=== PATIENT | male | born 1960 | race Caucasian/White ===

== ENCOUNTER → 2016-09-12 | Outpatient (CLI) | payer BC, MEDICAID, OTHER ==
[2016-09-12 17:15] LABS: Cholesterol 122 mg/dL (<200); HDL Cholesterol 49 mg/dL (40-60); Triglycerides 128 mg/dL (<150)
== END | disposition home or self-care (01) ==
LOC: LABWHC1 16:36
PROVIDERS: ATTEND Internal Medicine Clinical Cardiac Electrophysiology
DX: E78.5 Hyperlipidemia, unspecified (principal); I25.10 Atherosclerotic heart disease of native coronary artery without angina pectoris
CPT/HCPCS: 36415; 80061

== ENCOUNTER → 2016-12-12 | Outpatient (CLI) | payer MEDICAID ==
--- NOTE | 2016-12-13 22:07 | MR ---
EXAMINATION TYPE: MR knee LT wo con DATE OF EXAM: 12/12/2016 COMPARISON: NONE HISTORY: 56-year-old male with right knee pain TECHNIQUE: Multiplanar, multisequence imaging of the right knee is performed without IV contrast. FINDINGS: Diffuse thickening and increased signal throughout the ACL fibers. There is thickening of the PCL at 9 mm with increased signal throughout. Some intermediate signal along the proximal LCL proper and popliteus tendon. LCL complex otherwise re leatha intact. There is diffuse tear extending throughout the medial meniscus with a 1.3 x 1.0 cm posterior para men iscal cyst. There is mild diffuse cartilage thinning in the medial compartment though more severe car tilage loss along the posterior weightbearing aspect of the femoral condyle with large underlying sub chondral geodes measuring up to 1.4 cm. There is a tear extending throughout the posterior horn of the lateral meniscus. Inner margin radial tear is present along the meniscal body with additional tear at the anterior horn near the anterior r oot. Mild superficial cartilage loss along the mid weightbearing aspect of the lateral tibial plateau. Kevin e subtle underlying reactive marrow edema is present. Mild to moderate irregular cartilage loss along the mid superior patella with prominent underlying carrillo bchondral geodes measuring up to 1.0 m. Trochlear articular cartilage appears relatively maintained. There is a mild to moderate knee joint effusion and a moderate sized Whitaker's cyst measuring 5.3 x 1.8 cm. Extensor mechanism remains intact with intermediate signal along the proximal multiple mid patella te ndon fibers. Normal popliteal artery and mild muscular atrophy. No suspicious bone marrow replacement. Anterior so ft tissue swelling is nonspecific. IMPRESSION: 1. Mucoid degeneration of the ACL. 2. Either mucoid degeneration or partial tear of the PCL. 3. Low-grade sprain or chronic injury of the femoral attachment of the LCL proper and mild popliteus tendinosis. 4. Diffuse tear throughout the medial meniscus with severe cartilage loss and prominent subchondral g eodes along the posterior weightbearing aspect of the medial femoral condyle. 5. Additional tear of the posterior horn lateral meniscus, inner margin radial tear of the body, and partial tear near the anterior root as well. Mild overall lateral compartmental osteoarthrosis. 6. Moderate irregular cartilage loss with prominent subchondral geodes along the upper mid patella. 7. Tywbp-ix-sjyrwspi knee joint effusion and a moderate-sized Whitaker's cyst. 8. Proximal patellar tendinosis and nonspecific anterior soft tissue swelling.
== END | disposition home or self-care (01) ==
LOC: RADMRIMAIN 15:39
PROVIDERS: ATTEND Orthopaedic Surgery Sports Medicine
DX: S83.242A Other tear of medial meniscus, current injury, left knee, initial encounter (principal); S83.282A Other tear of lateral meniscus, current injury, left knee, initial encounter; M67.864 Other specified disorders of tendon, left knee

== ENCOUNTER → 2017-12-31 | Outpatient (CLI) | payer MEDICAID | LOC: LABWHC1 10:14 | PROVIDERS: ATTEND Urology | DX: R97.20 Elevated prostate specific antigen [PSA] (principal) | CPT/HCPCS: 36415; 84153 ==

== ENCOUNTER → 2018-02-11 | Outpatient (CLI) | payer MEDICAID ==
[2018-02-11 09:15] LABS: HCT 50.7 % (39.0-53.0); HGB 17.6 gm/dL (13.0-17.5); MCHC 34.7 g/dL (31.0-37.0); MCV 92.1 fL (80.0-100.0); Mean Platelet Volume 7.6; Platelet Count 215 k/uL (150-450); RBC 5.51 m/uL (4.30-5.90); WBC 7.3 k/uL (3.8-10.6)
[2018-02-11 09:16] LABS: Appearance,Urine Clear (Clear); Bilirubin,Urine Negative (Negative); Blood,Urine Negative (Negative); Color,Urine Yellow; Glucose,Urine (UA) Negative (Negative); Ketones,Urine Negative (Negative); Leukocyte Esterase,Urine Negative (Negative); Nitrite,Urine Negative (Negative); PH, Urine 5.5 (5.0-8.0); Protein,Urine Negative (Negative); Specific Gravity,Urine 1.019 (1.001-1.035); Urobilinogen,Urine <2.0 mg/dL (<2.0)
[2018-02-11 09:19] LABS: INR 1.1 (<1.2); Partial Thromboplastin Time 25.2 sec (22.0-30.0); Prothrombin Time 10.4 sec (9.0-12.0)
[2018-02-11 09:24] LABS: ALT 55 U/L (21-72); AST 72 U/L (17-59); Albumin 4.4 g/dL (3.5-5.0); Alkaline Phosphatase 66 U/L (38-126); Anion Gap 9 mmol/L; Blood Urea Nitrogen 20 mg/dL (9-20); Calcium 9.9 mg/dL (8.4-10.2); Carbon Dioxide 25 mmol/L (22-30); Chloride 106 mmol/L (98-107); Glucose 156 mg/dL (74-99); Potassium 4.8 mmol/L (3.5-5.1); Sodium 140 mmol/L (137-145); Total Bilirubin 1.1 mg/dL (0.2-1.3); Total Protein 7.3 g/dL (6.3-8.2)
== END | disposition home or self-care (01) ==
LOC: LABPAT 08:22
PROVIDERS: ATTEND Orthopaedic Surgery Sports Medicine
DX: Z01.818 Encounter for other preprocedural examination (principal); Z01.812 Encounter for preprocedural laboratory examination
CPT/HCPCS: 36415; 80053; 81003; 85027; 85610; 85730; 87070; 93005

== ENCOUNTER 2018-02-28 11:00 | Inpatient (IN) | payer MEDICAID ==
[2018-02-25 12:37] VITALS: BMI 31.2
[~2018-02-28 11:00] MED LIST: ACETAMINOPHEN TAB 500 MG TAB PO ONE; DEXAMETHASONE SOD PHOSPHATE 10 MG/ML 1 ML VIAL IV ONE; HYDROmorphone 1 MG/ML 1 ML SYRINGE IVP PRN; LACTATED RINGERS 1,000 ML IV SCH; LIDOCAINE 1% 20 ML VIAL (10MG/ML) FOR IV START INTRADERMA PRN; MELOXICAM 7.5 MG TAB PO ONE; MIDAZOLAM 2 MG/2 ML VIAL IV PRN; ONDANSETRON 4 MG/2 ML VIAL IVP ONE; ROPIVACAINE 246.25 MG, EPINEPHrine 0.5 MG, KETOROLAC 30 MG, cloNIDine HCL/PF 80 MCG, WA... MISCELLANE ONE; SCOPOLAMINE 1.5MG/72HR PATCH TRANSDERM ONE; TRANEXAMIC ACID 1,000 MG in SODIUM CHLORIDE 0.9% 50 ML IVPB ONE; ceFAZolin IN SWFI 2 GM/20 ML SYRINGE IVP ONE
[2018-02-28] MEDS ORDERED: BISACODYL 10 MG SUPP RECTAL PRN (11:53)
[2018-02-28] MEDS ORDERED: hydrOXYzine PAMOATE 25 MG CAP PO PRN (11:53)
[2018-02-28] MEDS ORDERED: HYDROcodone/APAP 7.5-325MG 1 EACH TAB PO PRN (11:53)
[2018-02-28] MEDS ORDERED: TEMAZEPAM 15 MG CAP PO PRN (11:53)
[2018-02-28] MEDS ORDERED: HYDROmorphone 1 MG/ML 1 ML SYRINGE IVP PRN ×4 (11:53→14:42)
[2018-02-28] MEDS ORDERED: MAGNESIUM HYDROXIDE 2,400 MG/10 ML CUP PO PRN (11:53)
[2018-02-28] MEDS ORDERED: Acetaminophen-Codeine 300-30mg TAB PO PRN (11:53)
[2018-02-28] MEDS ORDERED: NALOXONE 0.4 MG/ML 1 ML VIAL IV PRN ×2 (11:53→14:42)
[2018-02-28] MEDS ORDERED: ACETAMINOPHEN TAB 325 MG TAB PO PRN (11:53)
[2018-02-28] MEDS ORDERED: DIAZEPAM 5 MG TAB PO PRN (11:53)
[2018-02-28] MEDS ORDERED: HYDROcodone/APAP 5-325MG 1 EACH TAB PO PRN (11:53)
[2018-02-28] MEDS ORDERED: ONDANSETRON 4 MG/2 ML VIAL IVP PRN (11:53)
[2018-02-28] MEDS ORDERED: NA PHOS,M-B/NA PHOS,DI-BA 133 ML ENEMA RECTAL PRN (11:53)
[2018-02-28] MEDS: LACTATED RINGERS 1,000 ML IV SCH ×2 (12:30→23:52)
[2018-02-28] MEDS ORDERED: MIDAZOLAM 2 MG/2 ML VIAL ONE (14:19)
[2018-02-28] MEDS ORDERED: SODIUM CHLORIDE 0.9% 100 ML BAG ONE (14:19)
[2018-02-28] MEDS ORDERED: fentaNYL (PF) 50 MCG/ML 2 ML AMP ONE (14:19)
[2018-02-28] MEDS ORDERED: TRANEXAMIC ACID 1,000 MG/10 ML VIAL ONE (14:19)
[2018-02-28] MEDS ORDERED: MORPHINE SULFATE (PF) 0.3 MG/0.3 ML SYR ONE (14:19)
[2018-02-28] MEDS ORDERED: ceFAZolin 3,000 MG in SODIUM CHLORIDE 0.9% IRRIGATIO 3,000 ML IRRIGATION ONE (14:23)
[2018-02-28] MEDS ORDERED: diphenhydrAMINE 50 MG/ML 1 ML VIAL IVP PRN (14:42)
[2018-02-28] MEDS ORDERED: NALBUPHINE 10 MG/ML VIAL (10ML MDV) IV PRN (14:42)
[2018-02-28] MEDS ORDERED: LACTATED RINGERS 1,000 ML IV ONE (15:23)
--- NOTE | 2018-02-28 17:21 | XR ---
EXAMINATION TYPE: XR knee limited RT DATE OF EXAM: 02/28/2018 COMPARISON: NONE HISTORY: Postop knee pain TECHNIQUE: 2 views FINDINGS: There is a right knee prosthesis. Components are in anatomic position. IMPRESSION: No complicating process seen.
[2018-02-28] MEDS ORDERED: CARVEDILOL 12.5 MG TAB PO SCH (18:15)
[2018-02-28] MEDS: ATORVASTATIN 80 MG TAB PO SCH (19:36)
[2018-02-28] MEDS: CARVEDILOL 12.5 MG TAB PO SCH (19:37)
[2018-02-28] MEDS: ASPIRIN 325 MG TAB PO SCH (19:37)
[2018-02-28] MEDS: SENNOSIDES-DOCUSATE SODIUM 1 EACH TAB PO SCH (19:37)
[2018-02-28 19:39] LABS: Glucose,Whole Blood 179 mg/dL (75-99)
--- NOTE | 2018-02-28 23:29 | OP ---
OPERATIVE REPORT PROCEDURE: 02/28/2018. SURGEON: Gerardo Griffin M.D. LUMBER TRIPPER: Dandre JOHN. PAC. PREOPERATIVE DIAGNOSIS: Right knee osteoarthrosis. POSTOPERATIVE DIAGNOSIS: Right knee osteoarthrosis. PROCEDURE PERFORMED: Right total knee arthroplasty. ANESTHESIA: Spinal with sedation. ESTIMATED BLOOD LOSS: 100 mL. TOURNIQUET TIME: 58 minutes at 250 mmHg. COMPLICATIONS: None apparent. DRAINS: None. DISPOSITION: Postanesthesia care unit. INDICATIONS: Rodrigo is a very pleasant 57-year-old male with longstanding right knee pain. History and physical examination are consistent with advanced right knee osteoarthrosis. He has been through significant nonoperative management up to this point. Further treatment options were discussed and he decided to go forward with right total knee arthroplasty. The risks of procedure were discussed with him in detail. These risks include, but are not limited to risk of infection, nerve damage, bleeding, pain and risk of deep vein thrombosis which could lead to fatal pulmonary embolism. There is also risk of loosening of the implant which could require revision operation. The patient understands these risks. All of his questions were answered to his satisfaction. An appropriate informed consent was obtained. DESCRIPTION OF PROCEDURE: The patient identified in the preoperative holding area. Surgical sites marked by both the patient and myself. He was given 2 g of Ancef IV for prophylactic purposes. He was then transferred to the operative suite. He was placed supine on the operative table. Spinal anesthetic was then administered and dosed per the anesthesia without apparent complication. Examination under anesthesia was then performed. The patient was 2-3 degrees shy of full extension. 100 degrees of flexion. The medial collateral ligament, lateral collateral ligament posterior cruciate ligaments were stable. Tourniquet was then placed on the right upper thigh well-padded in preparation. REASON FOR SURGERY: The patient's right lower extremity is then prepped and draped in usual sterile fashion. Standard surgical pause undertaken to ensure that we were operating on the correct site and that appropriate preoperative antibiotics had been given. All staff in the room in agreement and we proceeded. The outlines of the patella were marked surgical pen. A planned 10 to 12 cm vertical incision centered over the patella was marked with a surgical pen. Leg was then exsanguinated with an Esmarch dressing. The knee was then flexed and tourniquet inflated to 250 mmHg. Total tourniquet time for the procedure was 58 minutes. Incision was then made with a 10 blade scalpel. Dissection was carried down sharply to the overlying fascia. Great care was taken to minimize the skin flaps. The knee was then exposed using a standard medial parapatellar approach. A small cuff of quadriceps tendon was then left for suturing. He was in a bit of varus preoperatively. A standard medial release was then made. Superficial medial collateral ligament was dissected off the bone around the posterior aspect of the proximal tibia. The medial meniscus was then excised as well. The lateral meniscus was also released anteriorly. The leg was then externally rotated. The patella was everted. The knee was flexed. Retractors then placed to protect the collateral ligaments. I then proceeded to remove the infrapatellar fat pad. This was excised sharply tangentially with fibers of the patellar tendon. I then proceeded to remove peripheral osteophytes. This was done with a rongeur. I then proceed with the distal femoral resection. He did have near full extension. A planned 9 mm resection was then done. The femoral canal was then entered in midline of the femur approximately 10 mm anterior to the origin of the posterior cruciate ligament. The pasquale was then advanced down the center of the femur and placed intramedullary. Based on preoperative radiographs, the angle between the anatomic and mechanical axis of the femur was approximately 4-5 degrees. The valgus angle of this femoral cutting guide was then set at 4 degrees for the right knee. The distal femoral cutting guide was then advanced over the intramedullary pasquale. This was seated firmly against the femur. I then as mentioned planned to take 9 mm off the distal femur. The cutting blocks was then secured to the femur with pins. The jig was removed. The distal femoral cut was made through the slot of the block. The pins were then removed with the distal femoral cutting block. Cutting block was removed. The accuracy of the distal femoral cuts was checked with 2 flat bars. I then proceeded with femoral sizing. The posterior referencing sizing guide was held firmly against the resected distal surface of the femur. Posterior condyles were resting on the posterior plane of the guide. The sizing stylus was then placed on the anterior femur, size was measured as a size 8. I then assessed for femoral rotation. The plan was for 3 degrees of external rotation. Three degrees of external rotation was placed onto the jig. These holes were then marked. I then confirmed the rotation by 3 separate methods. This was done using epicondylar axis as well as [place] line and posterior referencing. It was deemed that the external rotation was proper. I then went forward with placing the femoral cutting block. This was placed over the previously placed pin holes. The Allen wing was then placed on the anterior slots to ensure that we would not notch the anterior femur with the anterior femoral cut. I then proceeded with the anterior femoral cut. This was flush with the anterior cortex of the femur. Posterior cuts were then made, followed by the anterior chamfer cut, then the posterior chamfer cut. The cutting block was then removed. Throughout the resection, the collateral ligaments were protected with retractors. I then placed a trial size 8 femur. It fit very nice medial-lateral and fit flush with the distal end of the femur. The drill holes were then made. I then proceed with the tibial cut. I planned for cruciate retaining knee. The guide was placed and set for varus valgus and for slope. The height was set for approximate 2 mm resection from the medial tibial plateau which was the lower side. I was happy with the alignment and amount of resection. The cutting block was then pinned to the proximal tibia. The alignment pasquale was removed and the proximal tibia was resected with a reciprocating saw. Again this was done with retractors protecting the collateral ligaments as well as the posterior cruciate ligament. I then proceeded to evaluate the flexion extension gaps. A 10 mm block was placed. The flexion-extension gaps were equal. I then proceed with resection of posterior osteophytes. Very extensive posterior osteophytes. This was done using a curved osteotome. This resected the posterior osteophytes and posterior capsule stripping was also done off the posterior aspect of the femur. The osteophytes were removed. I then proceeded with resection of patella. The thickness of patella was measured using the caliper. The thickness was 22 mm. The thickness of the anticipated patellar dome was then taken into account. Resection was then performed and confirmed to be equal in 4 quadrants using a caliper. Approximately 14 mm of bone remained after the resection. A 35 x 8.5 mm standard patellar trial was then placed. The holes were drilled. The trial was then placed. I then proceed with sizing tibial plate. A size E tibial plate fit very nicely. I then placed the trial femur to the tibial tray and patellar button. A 10 mm trial tibial insert was also placed. The components fit very nicely. Full extension, flexion. The extension flexion gaps were equal and stable to both varus and valgus stress. Patella tracked appropriately. The tibial tray rotation was then marked with a Bovie. This was externally rotated properly. I then proceed with tibial preparation. I first drilled the femoral holes and removed the femoral component. The tibial tray was then set for proper external rotation as well as mediolateral placement onto the tibia. It was then pinned into place. I then proceeded with punching the keel. I then decided to proceed with cementing of all of our components. The knee was thoroughly irrigated with sterile saline solution via pulse lavage. The lateral geniculate artery was identified and cauterized. All blood was removed from the bone of the tibia femur and patella with pulse lavage. I then proceed with cementing. Two packs of antibiotic bone cement prepared on the back table by the neurosurgical physician assistant. I then proceed with cementing the tibia first. The cement was impacted into the keel as well as deeply seated into the bone. A second coat of cement was then placed. The tibia was then impacted into place. Excess cement was removed with Roselia's and Joker's. I then proceed with cementing of the femoral component. The femoral component was also cemented using standard technique. Excess cement was removed. A 12 mm trial insert was then placed into the knee. It was brought into full extension with a constant axial load placed until the cement had hardened. The patellar component was then cemented. This was held firmly with a compressive device until the cement had dried. When the cement had dried, the knee was taken out of extension. All excess cement was removed from around the prosthesis. I then trialed the knee with a 12 mm insert. I then trialed with a 14 mm insert. The flexion-extension gaps were appropriate. The knee was stable. It came into full extension. I decided to go forward with a 14 mm cross-linked cruciate-retaining tibial insert. Polyethylene was then placed onto the tibial tray and locked into place. The knee was then reduced. The knee was again further irrigated with sterile saline solution with antibiotic added. The tourniquet was then deflated. Total tourniquet time for the procedure was 58 minutes at 250 mmHg. Final components were Sushant Persona size 8 cruciate-retaining femoral component, size E tibial tray, a 14 mm medial congruent cruciate-retaining polyethylene insert and a 35 x 8.5 mm patella. I then proceeded with closure. Again, the knee was thoroughly irrigated. The quadriceps tendon and medial retinaculum were reapproximated with #2 Ethibond suture. The extensor mechanism was then closed with a running #2 Quill suture. Subcutaneous tissues were then closed with 2-0 Vicryl suture interrupted suture. The skin was closed with a running 3-0 Quill suture. Dermabond was applied to the incision. Sterile compressive dressings were then applied. All sponge and needle counts were deemed correct prior to closure. The patient tolerated the procedure without apparent complication. He was transferred to recovery room in stable condition. MMODL / IJN: [id number] /
[2018-02-28] MEDS: ceFAZolin IN SWFI 2 GM/20 ML SYRINGE IVP SCH (23:51)
[2018-03-01] MEDS: ceFAZolin IN SWFI 2 GM/20 ML SYRINGE IVP SCH (05:41)
--- NOTE | 2018-03-01 07:26 | P.PN ---
Progress Note - Text Progress Note Date: 03/01/18 57-year-old male status post total knee arthroplasty postop day #1 with Duramorph spinal. Patient has some complaints of nausea and vomiting overnight. He relates it to the dampness, VAS is 0 out of 10 in severity. He' s able to ambulate to and from the bathroom with no problems standing identifies a "soreness". No motor sensory deficits. Tolerating liquid diet.
[2018-03-01] MEDS: amLODIPine 5 MG TAB PO SCH (07:31)
[2018-03-01] MEDS: TAMSULOSIN 0.4 MG CAP.ER.24H PO SCH (07:31)
[2018-03-01] MEDS: ASPIRIN 325 MG TAB PO SCH ×2 (07:32→21:55)
[2018-03-01] MEDS: LISINOPRIL 20 MG TAB PO SCH (07:32)
[2018-03-01] MEDS: ALLOPURINOL 100 MG TAB PO SCH (07:32)
[2018-03-01] MEDS: MULTIVITAMINS, THERA 1 EACH TAB PO SCH (07:32)
[2018-03-01] MEDS: CARVEDILOL 12.5 MG TAB PO SCH ×2 (07:35→17:44)
[2018-03-01] MEDS: LACTATED RINGERS 1,000 ML IV SCH ×2 (07:38→22:04)
[2018-03-01] MEDS: TESTOSTERONE TOPICAL SCH (07:38)
[2018-03-01 08:49] LABS: Basophils % (A) 0 %; Eosinophils % (A) 0 %; HCT 47.2 % (39.0-53.0); HGB 15.2 gm/dL (13.0-17.5); Lymphocytes # (A) 1.1 k/uL (1.0-4.8); Lymphocytes % (A) 6 %; MCH 30.1 pg (25.0-35.0); MCHC 32.2 g/dL (31.0-37.0); MCV 93.5 fL (80.0-100.0); Mean Platelet Volume 7.7; Monocytes # (A) 1.2 k/uL (0-1.0); Monocytes % (A) 6 %; Neutrophils # (A) 17.4 k/uL (1.3-7.7); Neutrophils % (A) 87 %; Platelet Count 249 k/uL (150-450); RBC 5.05 m/uL (4.30-5.90)
--- NOTE | 2018-03-01 09:33 | P.DS ---
Providers Date of admission: 02/28/18 11:16 Expected date of discharge: 03/01/18 Attending physician: Gerardo Griffin Consults: 02/28/18 11:53 Consult Physician Routine Consulting Provider: Clint Linda Consult Reason/Comments: post op medical management Do you want consulting provider notified?: Yes 02/28/18 17:53 Consult Physician Routine Consulting Provider: Boom Jaquez Consult Reason/Comments: medical management Do you want consulting provider notified?: Yes Primary care physician: Clint Linda - Discharge Diagnosis(es) (1) Osteoarthritis of right knee Patient was admitted to the OR on 02/28/2018 to undergo a right total knee arthroplasty. He had failed conservative measures as an outpatient and desired to proceed with elective surgery after given informed consent. He underwent the above procedure which he tolerated well without complication. Postoperative hospital course has remained without complication. On day of discharge he is afebrile, vital signs stable, labs within acceptable ranges, tolerating by mouth meds and diet, voiding without difficulty, positive flatus, denies abdominal pain or calf pain, pain is controlled on oral pain medication and has no new complaints. Wound is benign, neurovascular status is intact, calf is soft and nontender, abdomen soft and nontender. Review of systems is negative for numbness, tingling, fever, chills, chest pain, shortness breath, nausea, vomiting, dizziness, headaches, slurred speech or other. Current Visit: Yes Status: Acute (2) Hx of tetralogy of Fallot repair Current Visit: No Status: Acute (3) Hyperlipemia Current Visit: No Status: Acute (4) S/P CABG x 4 Current Visit: No Status: Acute Patient Condition at Discharge: Good Plan - Discharge Summary Discharge Rx Participant: No New Discharge Prescriptions: New Aspirin 325 mg PO BID #60 tab Docusate [Colace] 100 mg PO BID #60 capsule HYDROcodone/APAP 7.5-325MG [[place] 7.5-325] 1 - 2 each PO Q6HR PRN #56 tab PRN Reason: Pain No Action Allopurinol [Zyloprim] 100 mg PO DAILY Amoxicillin 2,000 mg PO DIRECTED PRN PRN Reason: PRIOR TO DENTAL WORK Fexofenadine HCl [Frida Allergy] 60 mg PO HS PRN PRN Reason: Allergic Reaction Carvedilol [Coreg*] 12.5 mg PO BID-W/MEALS #60 tab amLODIPine BESYLATE/BENAZEPRIL [amLODIPine BESYLATE/BENAZEPRIL 5-20 mg] 1 tab PO DAILY Naproxen Sodium [Aleve] 440 mg PO HS Sildenafil Citrate [Sildenafil] 20 mg PO DIRECTED PRN PRN Reason: E.D. Tamsulosin HCl [Flomax] 0.4 mg PO DAILY Testosterone [Vogelxo 1%] 1 gram TOPICAL DAILY Aspirin EC [Ecotrin Low Dose] 162 mg PO DAILY Atorvastatin [Lipitor] 80 mg PO HS Discharge Medication List Allopurinol [Zyloprim] 100 mg PO DAILY 12/07/15 [History] Amoxicillin 2,000 mg PO DIRECTED PRN 12/08/15 [History] Fexofenadine HCl [Frida Allergy] 60 mg PO HS PRN 12/09/15 [History] Carvedilol [Coreg*] 12.5 mg PO BID-W/MEALS #60 tab 01/03/16 [Rx] Naproxen Sodium [Aleve] 440 mg PO HS 02/25/18 [History] Sildenafil Citrate [Sildenafil] 20 mg PO DIRECTED PRN 02/25/18 [History] Tamsulosin HCl [Flomax] 0.4 mg PO DAILY 02/25/18 [History] Testosterone [Vogelxo 1%] 1 gram TOPICAL DAILY 02/25/18 [History] amLODIPine BESYLATE/BENAZEPRIL [amLODIPine BESYLATE/BENAZEPRIL 5-20 mg] 1 tab PO DAILY 02/25/18 [History] Aspirin EC [Ecotrin Low Dose] 162 mg PO DAILY 02/28/18 [History] Atorvastatin [Lipitor] 80 mg PO HS 02/28/18 [History] Aspirin 325 mg PO BID #60 tab 03/01/18 [Rx] Docusate [Colace] 100 mg PO BID #60 capsule 03/01/18 [Rx] HYDROcodone/APAP 7.5-325MG [[place] 7.5-325] 1 - 2 each PO Q6HR PRN #56 tab [Rx] Follow up Appointment(s)/Referral(s): Clint Linda MD [Primary Care Provider] - 1 Week Gerardo Griffin MD [STAFF PHYSICIAN] - 10 Days Activity/Diet/Wound Care/Special Instructions: Keep wound clean and dry Take meds as directed Follow-up with Dr. Griffin in office Weight bear as tolerated May shower in 3 days if no bleeding Discharge Disposition: HOME WITH HOME HEALTH SERVICES
[2018-03-01] MEDS: traMADol 50 MG TAB PO PRN ×2 (11:42→21:55)
[2018-03-01] MEDS: ATORVASTATIN 80 MG TAB PO SCH (21:55)
[2018-03-01] MEDS: SENNOSIDES-DOCUSATE SODIUM 1 EACH TAB PO SCH (21:55)
--- NOTE | 2018-03-02 00:07 | CONS ---
CONSULTATION DATE OF CONSULTATION: 03/01/2018 REASON FOR CONSULTATION: Medical management requested by Dr. Griffin. CONSULTATION: This is a pleasant 57-year-old patient of Dr. Linda. Chronic stable medical conditions include: Coronary artery disease with bypass, hypertension, hyperlipidemia, osteoarthritis, BPH. The patient also had extensive cardiac history with pulmonary stenosis with pulmonic valve replacement, VSD and surgery and Tetralogy of Fallot repair. The patient has undergone a right total knee arthroplasty. Some pain is present. No nausea, vomiting. No chest pain. Sitting up in bed, comfortable. REVIEW OF SYSTEMS: CONSTITUTIONAL: None. HEENT: None. RESPIRATORY: None. GASTROINTESTINAL none. GENITOURINARY: None. MUSCULOSKELETAL: Arthritic pain in the joints. DERMATOLOGICAL, HEMATOLOGIC, LYMPHATIC: none. PSYCHIATRY: None. NEUROLOGICAL: None. PAST MEDICAL HISTORY: Coronary artery disease with bypass, hyperlipidemia, hypertension, osteoarthritis, pulmonary stenosis with pulmonary valve replacement, VSD closed spontaneously, Tetralogy of Fallot repair, BPH, gout. PAST SURGICAL HISTORY: Coronary artery bypass in 2016, medial sternotomy and resection of right ventricular sub infundibular stenosis. Also had heart surgery for tetralogy of Fallot at age 11. SOCIAL HISTORY: Does not smoke, use alcohol rarely . Has his own business. FAMILY HISTORY: Coronary artery disease. Mother had multiple myeloma. She also had coronary artery disease. HOME MEDICATIONS: 1. Amlodipine. 2. Benazepril 5/20 one tablet p.o. daily. 3. Testosterone 1% 1 g topical daily. 4. Flomax 0.4 mg p.o. daily. 5. Sildenafil 20 mg p.r.n. 6. Aleve 440 mg q.h.s. 7. Frida 60 mg q.h.s. p.r.n. 8. Coreg 12.5 p.o. b.i.d. 9. Lipitor 80 mg q.h.s. 10.Aspirin 162 mg p.o. daily. 11.Amoxicillin 2000 units p.o. b.i.d. p.r.n. 12.Allopurinol 100 mg p.o. daily. 13.[place] 7.5 p.r.n. 14.Colace 100 mg p.o. b.i.d. ALLERGIES: None. PHYSICAL EXAMINATION: VITAL SIGNS: Temperature 97.9, pulse 79, respiration 16, blood pressure 130/84, pulse ox 98% on room air. GENERAL APPEARANCE: Well built, BMI 31.2. Sitting up. Comfortable. EYES: Pupils are equal. Conjunctivae normal. HEENT: External appearance of nose and ears normal. Oral cavity normal. NECK: JVD not raised. Mass not palpable. RESPIRATORY: Effort normal. LUNGS: Fair entry. CARDIOVASCULAR: 1st and 2nd sounds normal. No edema. ABDOMEN: Soft, nontender. Liver and spleen not palpable. LYMPHATICS: No lymph nodes palpable in the neck and axilla. PSYCHIATRY: Alert and oriented x3. Mood and affect normal. NEUROLOGICAL: Pupils equal. Cranial nerves grossly intact. Power and sensation grossly intact. MUSCULOSKELETAL: Dressing over the right leg. INVESTIGATIONS: White count 5, hemoglobin 14.2. ASSESSMENT: 1. Right total knee arthroplasty. 2. Coronary artery disease with prior history of bypass. 3. Essential hypertension. 4. Hyperlipidemia. 5. Benign prostatic hypertrophy. 6. History of pulmonic stenosis, VSD, and tetralogy of Fallot with repair. PLAN: Patient overall doing much better. Home medications are resumed. Pain control is in place for DVT prophylaxis as an aspirin 3-[address] twice [address] day [address] Griffin. Care was discussed with the patient. Questions were answered. Thank you Dr. Griffin. Copy to Dr. Linda. MMODL / IJN: [id number] /
[2018-03-02] MEDS: HYDROcodone/APAP 5-325MG 1 EACH TAB PO PRN ×2 (04:50→12:13)
[2018-03-02] MEDS: LACTATED RINGERS 1,000 ML IV SCH (07:28)
[2018-03-02] MEDS: ALLOPURINOL 100 MG TAB PO SCH (08:55)
[2018-03-02] MEDS: ASPIRIN 325 MG TAB PO SCH (08:55)
[2018-03-02] MEDS: CARVEDILOL 12.5 MG TAB PO SCH (08:55)
[2018-03-02] MEDS: TAMSULOSIN 0.4 MG CAP.ER.24H PO SCH (08:56)
[2018-03-02] MEDS: amLODIPine 5 MG TAB PO SCH (08:56)
[2018-03-02] MEDS: LISINOPRIL 20 MG TAB PO SCH (08:56)
[2018-03-02] MEDS: MULTIVITAMINS, THERA 1 EACH TAB PO SCH (08:56)
[2018-03-02] MEDS: traMADol 50 MG TAB PO PRN (09:00)
[2018-03-02 09:06] VITALS: BP 131/76; PULSE 92; RESP 16; TEMP 98.8
[2018-03-02] MEDS: TESTOSTERONE TOPICAL SCH (10:41)
--- NOTE | 2018-03-02 19:17 | PN ---
PROGRESS NOTE DATE OF SERVICE: 03/02/2018 PRESENTING COMPLAINT: Right knee surgery. INTERVAL HISTORY: Patient is status post right knee arthroplasty, doing better. Pain is controlled. No nausea, vomiting, did tolerate a diet. Has been out of bed. REVIEW OF SYSTEMS: Done for constitutional, cardiovascular, GI, pulmonary musculoskeletal and findings as above. CURRENT MEDICATIONS: Reviewed. PHYSICAL EXAMINATION: Temperature 98, pulse 92, respirations 16, blood pressure 130/76, pulse 96% on room air. GENERAL APPEARANCE: Sitting up, comfortable. EYES: Pupils equal. Conjunctivae normal. NECK: JVD not raised. Mass not palpable. Respiratory effort increased. LUNGS: Clear. CARDIOVASCULAR: First and second sounds normal. No edema. ABDOMEN: Soft, nontender. Liver and spleen not palpable. PSYCHIATRY: Alert and oriented x3. Mood and affect normal. INVESTIGATIONS: White count 20, hemoglobin 15.2. ASSESSMENT: 1. Right total knee arthroplasty. 2. Coronary artery disease, prior history of bypass. 3. Essential hypertension. 4. Hyperlipidemia. 5. Benign prostatic hypertrophy. 6. History of pulmonic stenosis, VSD and tetralogy of Fallot with repair. PLAN: Dressing changes scheduled by Orthopedics. Now with dressing back in place. Following the same. From my standpoint, the patient otherwise is doing well. Care was discussed with the patient. MMODL / IJN: [id number] /
== END 2018-03-02 14:25 | disposition home health service (06) | DRG 470 ==
LOC: 2ORMAIN 11:16 → 4SSUR 17:31
PROVIDERS: ADMIT Orthopaedic Surgery Sports Medicine; ATTEND Orthopaedic Surgery Sports Medicine
PROC: 0SRC0J9 Replacement of Right Knee Joint with Synthetic Substitute, Cemented, Open Approach (ICD-10-PCS; principal; 2018-02-28 13:20)
DX: M17.11 Unilateral primary osteoarthritis, right knee (principal); E78.5 Hyperlipidemia, unspecified; I10 Essential (primary) hypertension; I25.10 Atherosclerotic heart disease of native coronary artery without angina pectoris; N40.0 Benign prostatic hyperplasia without lower urinary tract symptoms; Z79.82 Long term (current) use of aspirin; Z79.899 Other long term (current) drug therapy; Z80.7 Family history of other malignant neoplasms of lymphoid, hematopoietic and related tissues; Z82.49 Family history of ischemic heart disease and other diseases of the circulatory system; Z87.74 Personal history of (corrected) congenital malformations of heart and circulatory system; Z95.1 Presence of aortocoronary bypass graft; Z95.2 Presence of prosthetic heart valve; M19.90 Unspecified osteoarthritis, unspecified site
CPT/HCPCS: 85025; 88300

== ENCOUNTER 2018-06-18 17:32 | Inpatient (IN) | payer MEDICAID ==
[2018-06-18] MEDS ORDERED: SODIUM CHLORIDE 0.9% 1,000 ML IV STA ×2 (18:05→22:06)
[2018-06-18 19:01] LABS: Basophils # (A) 0.1 k/uL (0-0.2); Basophils % (A) 1 %; Eosinophils # (A) 0.4 k/uL (0-0.7); Eosinophils % (A) 5 %; HCT 50.5 % (39.0-53.0); HGB 16.4 gm/dL (13.0-17.5); Lymphocytes # (A) 0.7 k/uL (1.0-4.8); Lymphocytes % (A) 9 %; MCH 29.7 pg (25.0-35.0); MCHC 32.5 g/dL (31.0-37.0); MCV 91.6 fL (80.0-100.0); Mean Platelet Volume 7.8; Monocytes # (A) 0.6 k/uL (0-1.0); Monocytes % (A) 8 %; Neutrophils # (A) 6.1 k/uL (1.3-7.7); Neutrophils % (A) 76 %; Platelet Count 212 k/uL (150-450); RBC 5.51 m/uL (4.30-5.90); RDW 13.8 % (11.5-15.5)
[2018-06-18 19:05] LABS: ALT 303 U/L (21-72); AST 304 U/L (17-59); Albumin 4.1 g/dL (3.5-5.0); Alkaline Phosphatase 192 U/L (38-126); Anion Gap 9 mmol/L; Bilirubin, Conjugated 2.4 mg/dL (0.0-0.3); Bilirubin, Delta 1.7 mg/dL (0.0-0.2); Bilirubin,Unconjugated 3.1 mg/dL (0.0-1.1); Blood Urea Nitrogen 14 mg/dL (9-20); Calcium 9.6 mg/dL (8.4-10.2); Carbon Dioxide 25 mmol/L (22-30); Chloride 105 mmol/L (98-107); Creatine Kinase 108 U/L (55-170); Glucose 128 mg/dL (74-99); Lipase 78 U/L (23-300); Potassium 4.7 mmol/L (3.5-5.1); Sodium 139 mmol/L (137-145); Total Bilirubin 7.2 mg/dL (0.2-1.3); Total Protein 7.1 g/dL (6.3-8.2)
--- NOTE | 2018-06-18 19:21 | ED ---
General Adult HPI <Jim Jesus - Last Filed: 06/18/18 22:18> - General Source: patient, RN notes reviewed, old records reviewed Mode of arrival: ambulatory Limitations: no limitations <Santosh Sampson - Last Filed: 06/18/18 22:29> - General Chief complaint: Abdominal Pain Stated complaint: DARK URINE Time Seen by Provider: 06/18/18 17:59 - History of Present Illness Initial comments: 58-year-old male patient with past medical history of hypertension, hyperlipidemia, coronary artery disease, status post CABG 2 years ago presents to ED with jaundice. Patient reports his symptoms began Sunday night, patient reports that he had chills. Patient reports that Sunday he went to urgent care, had a reportedly negative workup including a flu swab. Patient reports that Sunday night he developed approximately 4 hours of epigastric abdominal pain. Patient denies any chest pain or shortness of breath. Patient reports that the epigastric abdominal pain resolved. Patient reports that this morning she had pruritus, resolved after Benadryl. Patient reports that he then went to urgent care for secondary evaluation where they noticed that he was mildly jaundiced. It is recommended to present to ER. Patient is currently asymptomatic. Denies any abdominal pain chest pain shortness of breath, pruritus. Systemic: Pt denies fatigue, myalgia, fever/chills, rash. Pt denies weakness, night sweats, weight loss. Neuro: Pt denies headache, visual disturbances, syncope or pre-syncope. HEENT: Pt denies ocular discharge or irritation, otalgia, rhinorrhea, pharyngitis or notable lymphadenopathy. Cardiopulmonary: Pt denies chest pain, SOB, heart palpitations, dyspnea on exertion. Abdominal/GI: Pt denies abdominal pain, n/v/d. : Pt denies dysuria, burning w/ urination, frequency/urgency. Denies new onset urinary or bowel incontinence. MSK: Pt denies myalgia, loss of strength or function in extremities. Neuro: Pt denies new onset weakness, paresthesias. (Santosh Sampson) - Related Data Home Medications Medication Instructions Recorded Confirmed Allopurinol [Zyloprim] 100 mg PO DAILY 12/07/15 06/18/18 Amoxicillin 2,000 mg PO DIRECTED PRN 12/08/15 06/18/18 Naproxen Sodium [Aleve] 440 mg PO HS 02/25/18 06/18/18 Sildenafil Citrate [Sildenafil] 20 mg PO DIRECTED PRN 02/25/18 06/18/18 Tamsulosin HCl [Flomax] 0.4 mg PO DAILY 02/25/18 06/18/18 Testosterone [Vogelxo 1%] 1 gram TOPICAL DAILY 02/25/18 06/18/18 amLODIPine BESYLATE/BENAZEPRIL 1 tab PO DAILY 02/25/18 06/18/18 [amLODIPine BESYLATE/BENAZEPRIL 5-20 MG] Aspirin EC [Ecotrin Low Dose] 162 mg PO DAILY 02/28/18 06/18/18 Atorvastatin [Lipitor] 80 mg PO HS 02/28/18 06/18/18 Previous Rx's Medication Instructions Recorded Carvedilol [Coreg*] 12.5 mg PO BID-W/MEALS #60 tab 01/03/16 Allergies Allergy/AdvReac Type Severity Reaction Status Date / Time No Known Allergies Allergy Verified 06/18/18 19:14 Review of Systems ROS Other: All systems not noted in ROS Statement are negative. <Jim Jesus - Last Filed: 06/18/18 22:18> ROS Other: All systems not noted in ROS Statement are negative. <Santosh Sampson - Last Filed: 06/18/18 22:29> ROS Statement: Those systems with pertinent positive or pertinent negative responses have been documented in the HPI. Past Medical History Past Medical History: Coronary Artery Disease (CAD), Hyperlipidemia, Hypertension, Osteoarthritis (OA), Prostate Disorder Additional Past Medical History / Comment(s): Pulmonary stenosis with pulmonic valve replacement, VSD-closed spontaneously, BPH, arthritis cervical and bilateral knees, cervical calcium deposits, numbness R arm at times r/t cervical problems, gout. History of Any Multi-Drug Resistant Organisms: None Reported Past Surgical History: Cardiac Valve Replacement, Heart Catheterization Additional Past Surgical History / Comment(s): 12/09/15 R/L cardiac cath. Other surgical hx: Median sternotomy and resection of RV sub-infundibular stenosis, cardiac caths x3, HEART SURGERY FOR TETRALOGY OF FALLOT (AGE 11), L hand fx with surgical repair, vasectomy. Past Anesthesia/Blood Transfusion Reactions: No Reported Reaction Additional Past Anesthesia/Blood Transfusion Reaction / Comment(s): Pt received blood with surgery in past without reaction. Past Psychological History: Anxiety Smoking Status: Never smoker Past Alcohol Use History: Rare Past Drug Use History: None Reported - Past Family History Mother Family Medical History: Cancer, Coronary Artery Disease (CAD), Myocardial Infarction (MS), Renal Disease Additional Family Medical History / Comment(s): Mother had multiple myeloma. She of renal failure. She had a MS and CABG in her early 60's. She had alot of CAD in her family. Father Family Medical History: Coronary Artery Disease (CAD), Myocardial Infarction (MS) Additional Family Medical History / Comment(s): Father had his first MS in his mid 60's and of a MS at the age of 82yrs. He had alot of CAD in his family. <Santosh Sampson - Last Filed: 06/18/18 22:29> General Exam Limitations: no limitations <Santosh Sampson - Last Filed: 06/18/18 22:29> - General Exam Comments Initial Comments: Constitutional: NAD, AOX3, Pt has pleasant affect. HEENT: NC/AT, trachea midline, neck supple, no lymphadenopathy. Posterior pharynx non erythematous, without exudates. External ears appear normal, without discharge. Mucous membranes moist. Eyes PERRLA, EOM intact. There mild scleral icterus. No pallor noted. Cardiopulmonary: RRR, no murmurs, rubs or gallops, no JVD noted. Lungs CTAB in anterior and posterior glover. No peripheral edema. Abdominal exam: Abdomen soft and non-distended. Abdomen non-tender to palpation in all 4 quadrants. Bowel sounds active in LLQ. No hepatosplenomegaly. No ecchymosis Neuro: CN II-XII grossly intact. No nuchal rigidity. MSK: No posterior calf tenderness bilaterally, homans sign negative bilaterally. Posterior tibialis and radial pulse +2 bilaterally. Sensation intact in upper and lower extremities. Full active ROM in upper and lower extremities, 5/5 stregnth. (Santosh Sampson) Course Vital Signs 06/18/18 17:51 Temperature 98.4 F Pulse Rate 65 Respiratory 18 Rate Blood Pressure 169/93 O2 Sat by Pulse 96 Oximetry Medical Decision Making - Lab Data Result diagrams: 06/18/18 18:44 06/18/18 18:44 <Jim Jesus - Last Filed: 06/18/18 22:18> - Lab Data Result diagrams: 06/18/18 18:44 06/18/18 18:44 <Santosh Sampson - Last Filed: 06/18/18 22:29> - Medical Decision Making The patient was seen and examined. All diagnostics were reviewed. I have discussed the case with the PA and agree with findings as documented. The case is also discussed with internal medicine and they are agreeable with admission. (Jim Jesus) 58-year-old male patient with past medical history of hypertension, hyperlipidemia, coronary artery disease, status post CABG 2 years ago presents to ED with jaundice. Patient reports his symptoms began Sunday night, patient reports that he had chills. Patient reports that Sunday he went to urgent care, had a reportedly negative workup including a flu swab. Patient reports that Sunday night he developed approximately 4 hours of epigastric abdominal pain. Patient denies any chest pain or shortness of breath. Patient reports that the epigastric abdominal pain resolved. Patient reports that this morning she had pruritus, resolved after Benadryl. Patient reports that he then went to urgent care for secondary evaluation where they noticed that he was mildly jaundiced. It is recommended to present to ER. Patient is currently asymptomatic. Denies any abdominal pain chest pain shortness of breath, pruritus. Left investigation Present CBC. Correlation studies within normal limits. CMP revealed elevated bilirubin of 7.2. AST ALT alk phos elevated. Troponin negative. EKG not concerning for acute ischemia. UA displayed +[address] abdomen and pelvis displayed no evidence of acute diverticulitis. No free fluid. Enlarged prostate. Chest x-ray revealed no acute process. Gallbladder ultrasound displayed no gallstones or dilated ducts. Distended gallbladder could relate to gallbladder dysfunction. Patient will be admitted for further evaluation of jaundice. Case discussed and pt seen by Dr. Jesus. (Santosh Sampson) - Lab Data Lab Results 06/18/18 06/18/18 06/18/18 Range/Units 18:44 18:44 18:44 WBC 8.0 (3.8-10.6) k/uL RBC 5.51 (4.30-5.90) m/uL Hgb 16.4 (13.0-17.5) gm/dL Hct 50.5 (39.0-53.0) % MCV 91.6 (80.0-100.0) fL MCH 29.7 (25.0-35.0) pg MCHC 32.5 (31.0-37.0) g/dL RDW 13.8 (11.5-15.5) % Plt Count 212 (150-450) k/uL Neutrophils % 76 % Lymphocytes % 9 % Monocytes % 8 % Eosinophils % 5 % Basophils % 1 % Neutrophils # 6.1 (1.3-7.7) k/uL Lymphocytes # 0.7 L (1.0-4.8) k/uL Monocytes # 0.6 (0-1.0) k/uL Eosinophils # 0.4 (0-0.7) k/uL Basophils # 0.1 (0-0.2) k/uL PT (9.0-12.0) sec INR (<1.2) APTT (22.0-30.0) sec Sodium 139 (137-145) mmol/L Potassium 4.7 (3.5-5.1) mmol/L Chloride 105 (98-107) mmol/L Carbon Dioxide 25 (22-30) mmol/L Anion Gap 9 mmol/L BUN 14 (9-20) mg/dL Creatinine 0.92 (0.66-1.25) mg/dL Est GFR (CKD-EPI)AfAm >90 (>60 ml/min/1.73 sqM) Est GFR (CKD-EPI)NonAf >90 (>60 ml/min/1.73 sqM) Glucose 128 H (74-99) mg/dL Plasma Lactic Acid Chalo 1.2 (0.7-2.0) mmol/L Calcium 9.6 (8.4-10.2) mg/dL Total Bilirubin 7.2 H (0.2-1.3) mg/dL Conjugated Bilirubin 2.4 H (0.0-0.3) mg/dL Unconjugated Bilirubin 3.1 H (0.0-1.1) mg/dL Delta Bilirubin 1.7 H (0.0-0.2) mg/dL AST 304 H (17-59) U/L ALT 303 H (21-72) U/L Alkaline Phosphatase 192 H (38-126) U/L Creatine Kinase 108 (55-170) U/L Troponin I (0.000-0.034) ng/mL Total Protein 7.1 (6.3-8.2) g/dL Albumin 4.1 (3.5-5.0) g/dL Lipase 78 (23-300) U/L Urine Color Urine Appearance (Clear) Urine pH (5.0-8.0) Ur Specific [place] (1.001-1.035) Urine Protein (Negative) Urine Glucose (UA) (Negative) Urine Ketones (Negative) Urine Blood (Negative) Urine Nitrite (Negative) Urine Bilirubin (Negative) Urine Urobilinogen (<2.0) mg/dL Ur Leukocyte Esterase (Negative) Urine RBC (0-5) /hpf Urine WBC (0-5) /hpf Ur Squamous Epith Cells (0-4) /hpf Calcium Oxalate Crystal (None) /hpf Amorphous Sediment (None) /hpf Hyaline Casts (0-2) /lpf Urine Mucus (None) /hpf 06/18/18 06/18/18 06/18/18 Range/Units 18:44 18:44 19:21 WBC (3.8-10.6) k/uL RBC (4.30-5.90) m/uL Hgb (13.0-17.5) gm/dL Hct (39.0-53.0) % MCV (80.0-100.0) fL MCH (25.0-35.0) pg MCHC (31.0-37.0) g/dL RDW (11.5-15.5) % Plt Count (150-450) k/uL Neutrophils % % Lymphocytes % % Monocytes % % Eosinophils % % Basophils % % Neutrophils # (1.3-7.7) k/uL Lymphocytes # (1.0-4.8) k/uL Monocytes # (0-1.0) k/uL Eosinophils # (0-0.7) k/uL Basophils # (0-0.2) k/uL PT 11.2 (9.0-12.0) sec INR 1.1 (<1.2) APTT 28.0 (22.0-30.0) sec Sodium (137-145) mmol/L Potassium (3.5-5.1) mmol/L Chloride (98-107) mmol/L Carbon Dioxide (22-30) mmol/L Anion Gap mmol/L BUN (9-20) mg/dL Creatinine (0.66-1.25) mg/dL Est GFR (CKD-EPI)AfAm (>60 ml/min/1.73 sqM) Est GFR (CKD-EPI)NonAf (>60 ml/min/1.73 sqM) Glucose (74-99) mg/dL Plasma Lactic Acid Chalo (0.7-2.0) mmol/L Calcium (8.4-10.2) mg/dL Total Bilirubin (0.2-1.3) mg/dL Conjugated Bilirubin (0.0-0.3) mg/dL Unconjugated Bilirubin (0.0-1.1) mg/dL Delta Bilirubin (0.0-0.2) mg/dL AST (17-59) U/L ALT (21-72) U/L Alkaline Phosphatase (38-126) U/L Creatine Kinase (55-170) U/L Troponin I <0.012 (0.000-0.034) ng/mL Total Protein (6.3-8.2) g/dL Albumin (3.5-5.0) g/dL Lipase (23-300) U/L Urine Color [place] Urine Appearance Clear (Clear) Urine pH 5.5 (5.0-8.0) Ur Specific [place] 1.023 (1.001-1.035) Urine Protein Trace H (Negative) Urine Glucose (UA) Negative (Negative) Urine Ketones Negative (Negative) Urine Blood Trace H (Negative) Urine Nitrite Negative (Negative) Urine Bilirubin 2+ H (Negative) Urine Urobilinogen 3.0 (<2.0) mg/dL Ur Leukocyte Esterase Negative (Negative) Urine RBC 1 (0-5) /hpf Urine WBC 4 (0-5) /hpf Ur Squamous Epith Cells <1 (0-4) /hpf Calcium Oxalate Crystal Few H (None) /hpf Amorphous Sediment Rare H (None) /hpf Hyaline Casts 3 H (0-2) /lpf Urine Mucus Rare H (None) /hpf Disposition <Jim Jesus J - Last Filed: 06/18/18 22:18> Is patient prescribed a controlled substance at d/c from ED?: No <Santosh Sampson - Last Filed: 06/18/18 22:29> Clinical Impression: Jaundice Disposition: ADMITTED IP TO THIS HOSP Condition: Serious Referrals: Clint Linda MD [Primary Care Provider] - 1-2 days
[2018-06-18 19:38] LABS: Amorphous Sediment,Urine Rare /hpf; Appearance,Urine Clear (Clear); Bilirubin,Urine 2+ (Negative); Blood,Urine Trace (Negative); Calcium Oxalate Crystals,Urine Few /hpf; Color,Urine Orange; Glucose,Urine (UA) Negative (Negative); Hyaline Casts,Urine 3 /lpf (0-2); Ketones,Urine Negative (Negative); Leukocyte Esterase,Urine Negative (Negative); Mucus,Urine Rare /hpf; Nitrite,Urine Negative (Negative); PH, Urine 5.5 (5.0-8.0); Protein,Urine Trace (Negative); RBC,Urine 1 /hpf (0-5); Specific Gravity,Urine 1.023 (1.001-1.035); Squamous Epithelial Cell,Urine <1 /hpf (0-4); WBC,Urine 4 /hpf (0-5)
--- NOTE | 2018-06-18 20:17 | XR ---
EXAMINATION TYPE: XR chest 2V DATE OF EXAM: 06/18/2018 COMPARISON: 01/02/2016 HISTORY: Abdominal pain TECHNIQUE: Frontal and lateral views of the chest are obtained. FINDINGS: Heart is normal. Lungs are clear of consolidation. Thoracic aorta is intact. There are mario rnal wires. Bony thorax is intact. IMPRESSION: No active cardiopulmonary disease. There is clearing of left pleural effusion and left l ower lobe pneumonia and atelectasis compared to old exam.
--- NOTE | 2018-06-18 20:23 | CT ---
EXAMINATION TYPE: CT abdomen pelvis w con DATE OF EXAM: 06/18/2018 COMPARISON: None HISTORY: Abdominal pain, hematuria and jaundice. CT DLP: 1633.8 mGycm Automated exposure control for dose reduction was used. TECHNIQUE: Helical acquisition of images was performed from the lung bases through the pelvis. CONTRAST: Performed without Oral Contrast and with IV Contrast, patient injected with 100ml mL of Isovue 300. FINDINGS: Lung bases are clear of consolidation. There is no pleural effusion. There is no pericardial effusion . Liver shows no focal defect. Gallbladder is within normal limits of size. Spleen appears normal. Stom ach appears normal. Spleen is intact. There is no evidence of pancreatic mass. There is no adrenal mass. Kidneys show satisfactory contrast opacification. There is no hydronephrosi s. Ureters are not dilated. There is no retroperitoneal adenopathy. Bladder distends smoothly. The pr ostate is enlarged and measures 5.5 cm. There is no inguinal hernia. There are small amount of free f luid in the pelvis. There are a few sigmoid diverticula. There is no sign of diverticulitis. There is 4 mm calculus lower pole right kidney. Appendix is not seen. There is no sign of thickened appendix. Lumbar spine is intact. There is no compression fracture. There is narrowing at L5-S1 disc space. Bon y pelvis is intact. There is broad-based umbilical hernia that contains fat. IMPRESSION: THERE ARE A FEW SIGMOID DIVERTICULA. NO EVIDENCE OF DIVERTICULITIS. MILD FREE FLUID. ENLARGED PROSTAT E. NONOBSTRUCTING RIGHT RENAL CALCULUS. NO DILATED DUCTS.
[2018-06-18 20:30] LABS: INR 1.1 (<1.2); Prothrombin Time 11.2 sec (9.0-12.0)
[2018-06-18] MEDS ORDERED: CHOLESTYRAMINE (WITH SUGAR) 4 GM PACKET PO STA (21:28)
--- NOTE | 2018-06-18 21:35 | US ---
EXAMINATION TYPE: US gallbladder DATE OF EXAM: 06/18/2018 COMPARISON: NONE CLINICAL HISTORY: Pain. Pain and jaundice. EXAM MEASUREMENTS: Liver Length: 18.5 cm Gallbladder Wall: 0.3 cm CBD: 0.6 cm Right Kidney: 13.1 x 7.0 x 6.1 cm Pancreas: Obscured by bowel gas Liver: Increased attenuation Gallbladder: No stones seen Evidence for sonographic Griffin's sign: No CBD: wnl Right Kidney: Lobulated cortex. Echogenic foci lower pole. IMPRESSION: No gallstones or dilated ducts. Distended gallbladder could relate to gallbladder dysfunc tion.
[2018-06-18] MEDS ORDERED: NALOXONE 0.4 MG/ML 1 ML VIAL IV PRN ×2 (22:29→23:12)
[2018-06-18] MEDS ORDERED: HYDROcodone/APAP 5-325MG 1 EACH TAB PO PRN (23:12)
[2018-06-18] MEDS ORDERED: MELATONIN 3 MG TABLET PO PRN (23:12)
[2018-06-18] MEDS ORDERED: ONDANSETRON 4 MG/2 ML VIAL IVP PRN (23:12)
--- NOTE | 2018-06-18 23:30 | P.HPIM ---
History of Present Illness H&P Date: 06/18/18 Chief Complaint: elevated bilirubin Patient is an 58-year-old male with a past medical history of coronary artery disease status post 4 vessel bypass, tetralogy of flow status post repair, hypertension, dyslipidemia, and BPH who presented to the ER at the direction of the nurse practitioner from Dr. Linda's office for elevated bilirubin levels. In the ER he underwent a comprehensive evaluation. His initial vital signs were within normal limits. Laboratory analysis showed an elevated bilirubin at 7.4. An elevated AST, ALP and alk phos as well. He underwent a CT abdomen and pelvis which showed some free fluid in the pelvis as well as an enlarged prostate but no abnormalities within the gallbladder. He underwent a right upper quadrant ultrasound which did not show any dilated ducts or gallbladder abnormalities. He was given IV fluids in the ER and arrangements were made for admission. Patient seen and examined at bedside in the ER. He reports that 2 days ago he noted fevers and chills at home. He then began having sharp pain underneath his rib cage which was constant in nature, He states that nothing helped the pain such a movements/eating/not eating. He then went to the urgent care [place] yesterday at Dr. Linda's office as he noted of cold and her clarissa color to his urine. Early this morning he noted itching of his chest wall, yellowing of his skin was noted by his , and he had a stool that was chu or white in color and he therefore went back to Dr. Linda's office. When he awoke today his abdominal pain was gone. They tested his urine which was positive for bilirubin and ran labs and told him to come to the ER for elevated bilirubin levels and possible need for CAT scan. He reports chills again last night with a T-max of 101.5, today his Temperature has been 98.3. He does report feeling slightly lightheaded a couple of days ago and having decreased appetite. He reports that since receiving IV fluids in the ER his urine is lightening in color. He denies any recent travel. His last trip out of the country was in late April or early May on a [place] cruise. He has not ate anything unusual. No new medications. People at work with cold symptoms but no other sick contacts. Denies any family hx of liver/gallbladder problems, no PSC, no PBC, no crohns/UC Review of Systems Pertinent positives and negatives as discussed in HPI, a complete review of systems was performed and all other systems are negative. Past Medical History Past Medical History: Coronary Artery Disease (CAD), Hyperlipidemia, Hypertensi on, Osteoarthritis (OA), Prostate Disorder Additional Past Medical History / Comment(s): Pulmonary stenosis with pulmonic valve replacement, VSD-closed spontaneously, BPH, arthritis cervical and bilateral knees, cervical calcium deposits, numbness R arm at times r/t cervical problems, gout. History of Any Multi-Drug Resistant Organisms: None Reported Past Surgical History: Cardiac Valve Replacement, Heart Catheterization Additional Past Surgical History / Comment(s): Other surgical hx: Median s ternotomy and resection of RV sub-infundibular stenosis, cardiac caths x4, HEART SURGERY FOR TETRALOGY OF FALLOT (AGE 11), L hand fx with surgical repair, vasectomy R TKA Past Anesthesia/Blood Transfusion Reactions: No Reported Reaction Additional Past Anesthesia/Blood Transfusion Reaction / Comment(s): Pt received blood with surgery in past without reaction. Past Psychological History: Anxiety Smoking Status: Never smoker Past Alcohol Use History: Occasional Past Drug Use History: None Reported Additional History: Lives with his , no assistive devices, and works in the [employer] industry - Past Family History Mother Family Medical History: Cancer, Coronary Artery Disease (CAD), Myocardial Infarction (DC), Renal Disease Additional Family Medical History / Comment(s): Mother had multiple myeloma. She of renal failure. She had a DC and CABG in her early 60's. She had alot of CAD in her family. Father Family Medical History: Coronary Artery Disease (CAD), Myocardial Infarction (DC) Additional Family Medical History / Comment(s): Father had his first DC in his m id 60's and of a DC at the age of 82yrs. He had alot of CAD in his family. Medications and Allergies Home Medications Medication Instructions Recorded Confirmed Type Allopurinol [Zyloprim] 100 mg PO DAILY 12/07/15 06/18/18 History Amoxicillin 2,000 mg PO DIRECTED PRN 12/08/15 06/18/18 History Carvedilol [Coreg*] 12.5 mg PO BID-W/MEALS #60 tab 01/03/16 06/18/18 Rx Naproxen Sodium [Aleve] 440 mg PO HS 02/25/18 06/18/18 History Sildenafil Citrate [Sildenafil] 20 mg PO DIRECTED PRN 02/25/18 06/18/18 History Tamsulosin HCl [Flomax] 0.4 mg PO DAILY 02/25/18 06/18/18 History Testosterone [Vogelxo 1%] 1 gram TOPICAL DAILY 02/25/18 06/18/18 History amLODIPine BESYLATE/BENAZEPRIL 1 tab PO DAILY 02/25/18 06/18/18 History [amLODIPine BESYLATE/BENAZEPRIL 5-20 MG] Aspirin EC [Ecotrin Low Dose] 162 mg PO DAILY 02/28/18 06/18/18 History Atorvastatin [Lipitor] 80 mg PO HS 02/28/18 06/18/18 History Allergies Allergy/AdvReac Type Severity Reaction Status Date / Time No Known Allergies Allergy Verified 06/18/18 19:14 Physical Exam Osteopathic Statement: *. No significant issues noted on an osteopathic structural exam other than those noted in the History and Physical/Consult. Vitals: Vital Signs Temp Pulse Resp BP Pulse Ox 06/18/18 17:51 98.4 F 65 18 169/93 96 Intake and Output 06/18/18 06/18/18 06/18/18 06:59 14:59 22:59 Other: Weight 115.666 kg General: ill appearing, no distress, appears at stated age, normal weight Derm: + jaundice, no unusual rashes/lesions no unusual ecchymoses, warm, dry Head: atraumatic, normocephalic, symmetric Eyes: EOMI, no lid lag, +icteric sclera, pupils equal round reactive to light ENT: Nose and ears atraumatic, no thrush, no pharyngeal erythema Neck: No thyromegaly, no cervical lymphadenopathy, trachea midline, supple Mouth: no lip lesion, mucus membranes dry Cardiovascular: S1S2 reg, no murmur, positive posterior tibial pulse bilateral, no edema, capillary refill less than 2 seconds Lungs: CTA bilateral, no rhonchi, no rales , no accessory muscle use Abdominal: soft, nontender to palpation, no guarding, no appreciable organomegaly, normal bowel sounds Ext: no gross muscle atrophy, muscle strength 5 out of 5 in all 4 extremities grossly, no contractures, Neuro: CN II-XI grossly intact, light touch intact all 4 extremities, finger to nose within normal limits, Psych: Alert, oriented, appropriate affect Results CBC & Chem 7: 06/18/18 18:44 06/18/18 18:44 Labs: Abnormal Lab Results - Last 24 Hours (Table) 06/18/18 06/18/18 06/18/18 Range/Units 18:44 18:44 19:21 Lymphocytes # 0.7 L (1.0-4.8) k/uL Glucose 128 H (74-99) mg/dL Total Bilirubin 7.2 H (0.2-1.3) mg/dL Conjugated Bilirubin 2.4 H (0.0-0.3) mg/dL Unconjugated Bilirubin 3.1 H (0.0-1.1) mg/dL Delta Bilirubin 1.7 H (0.0-0.2) mg/dL AST 304 H (17-59) U/L ALT 303 H (21-72) U/L Alkaline Phosphatase 192 H (38-126) U/L Urine Protein Trace H (Negative) Urine Blood Trace H (Negative) Urine Bilirubin 2+ H (Negative) Calcium Oxalate Crystal Few H (None) /hpf Amorphous Sediment Rare H (None) /hpf Hyaline Casts 3 H (0-2) /lpf Urine Mucus Rare H (None) /hpf Comments: Liver US reviewed CT scan - abdomen: report reviewed CT scan - pelvis: report reviewed Thrombosis Risk Factor Assmnt - DVT/VTE Prophylaxis DVT/VTE Prophylaxis: Low risk, early ambulation encouraged - Choose All That Apply Each Factor Represents 1 point: Age 41-60 years, Obesity (BMI >25) Thrombosis Risk Factor Assessment Total Risk Factor Score: 2 Thrombosis Risk Factor Assessment Level: Low Risk Assessment and Plan Assessment: Transaminitis with hyperbilirubinemia - currently painless jaundice associated with fevers - Consult GI, May need ERCP - Repeat labs in AM - CT and US are negative - check hepatitis panel, CMV, EBV, MARGIE, antismooth muscle, antimitochondrial antibody - hold statin, aleeve, testosterone ASCAD - hold ASA tomorrow incase procedure needed by GI HTN, controlled - continue amlodipine, benzapril, coreg HLD - hold statin due to elevated liver enzymes BPH - flomax - continued outpatient follow-up with Dr. Madison Obesity, BMI 31.9 - structured outpatient weight loss Strucutural heart disease - follow with Dr. Willard - Chay The patient is admitted with an anticipated greater than 2 midnight stay for evaluation of painless jaundice. Surrogate decision-maker: Magaly CODE STATUS:Full DVT prophylaxis: SCDs Discussed with: Patient, Dr. Jesus, Anticipated discharge date: 2-[address]: Home A total of 65 minutes was spent on the care of this complex patient more than 50% of the time was spent in counseling and care coordination.
[2018-06-18] MEDS: CARVEDILOL 12.5 MG TAB PO SCH (23:49)
[2018-06-19] MEDS: diphenhydrAMINE 50 MG/ML 1 ML VIAL IVP PRN ×3 (01:54→20:41)
[2018-06-19] MEDS: SODIUM CHLORIDE 0.9% 1,000 ML IV SCH ×3 (01:54→20:04)
[2018-06-19 08:29] LABS: HGB 15.1 gm/dL (13.0-17.5); MCH 29.8 pg (25.0-35.0); MCHC 32.9 g/dL (31.0-37.0); MCV 90.6 fL (80.0-100.0); Mean Platelet Volume 8.2; Platelet Count 206 k/uL (150-450); RBC 5.08 m/uL (4.30-5.90); RDW 13.8 % (11.5-15.5); WBC 6.9 k/uL (3.8-10.6)
[2018-06-19 08:43] LABS: INR 1.1 (<1.2); Prothrombin Time 11.3 sec (9.0-12.0)
[2018-06-19 08:48] LABS: ALT 252 U/L (21-72); AST 233 U/L (17-59); Albumin 3.7 g/dL (3.5-5.0); Alkaline Phosphatase 165 U/L (38-126); Anion Gap 10 mmol/L; Blood Urea Nitrogen 12 mg/dL (9-20); Carbon Dioxide 22 mmol/L (22-30); Chloride 105 mmol/L (98-107); Glucose 126 mg/dL (74-99); Potassium 4.2 mmol/L (3.5-5.1); Sodium 137 mmol/L (137-145); Total Bilirubin 4.7 mg/dL (0.2-1.3); Total Protein 6.4 g/dL (6.3-8.2)
[2018-06-19] MEDS: TAMSULOSIN 0.4 MG CAP.ER.24H PO SCH (09:29)
[2018-06-19] MEDS: ALLOPURINOL 100 MG TAB PO SCH (09:29)
[2018-06-19] MEDS: LISINOPRIL 20 MG TAB PO SCH (09:29)
[2018-06-19] MEDS: amLODIPine 5 MG TAB PO SCH (09:30)
[2018-06-19] MEDS: CARVEDILOL 12.5 MG TAB PO SCH ×2 (09:31→17:46)
[2018-06-19 13:41] LABS: EBV-VCA (IgG) >8.0 AI
[2018-06-19 13:41] LABS: Hepatitis A Antibody IgM Non-Reactive (Non-Reactive); Hepatitis B Core IgM Non-Reactive (Non-Reactive)
[2018-06-19] MEDS: metroNIDAZOLE-NS PMX 500 MG in SALINE 1 100ML.BAG IVPB SCH ×3 (14:48→23:39)
--- NOTE | 2018-06-19 14:50 | P.PN ---
Subjective Progress Note Date: 06/19/18 Principal diagnosis: Obstructive jaundice Patient seen and examined. No acute events overnight. Patient states that he is feeling well this morning. States that itchiness has resolved. States that abdominal pain has resolved. Stool and urine color returning back to normal as per patient. He denies any chest pain, shortness of breath or palpitations. Objective - Vital Signs Vital signs: Vital Signs Temp 98.4 F 06/19/18 07:30 Pulse 70 06/19/18 07:30 Resp 16 06/19/18 01:17 BP 148/84 06/19/18 07:30 Pulse Ox 96 06/19/18 07:30 Intake & Output 06/18/18 06/19/18 06/19/18 18:59 06:59 18:59 Weight 115.666 kg Other: Voiding Method Toilet # Bowel Movements 1 - Exam General: [non toxic], [no distress], [appears at stated age] Derm: [warm], [dry] Head: [atraumatic], [normocephalic], [symmetric] Eyes: [EOMI], [no lid lag], [jaundice sclera] Mouth: [no lip lesion], [mucus membranes moist] Cardiovascular: [S1S2 reg], [no murmur], [positive DP pulse bilateral], Lungs: [CTA bilateral], [no rhonchi, no rales] , [no accessory muscle use] Abdominal: [soft], [ nontender to palpation], [no guarding], [no appreciable organomegaly] Ext: [no gross muscle atrophy], [no edema], [no contractures] Neuro: [no focal neuro deficits] Psych: [Alert], [oriented], [appropriate affect] - Labs CBC & Chem 7: 06/19/18 07:11 06/19/18 07:11 Labs: Abnormal Lab Results - Last 24 Hours (Table) 06/18/18 06/18/18 06/18/18 Range/Units 18:44 18:44 19:21 Lymphocytes # 0.7 L (1.0-4.8) k/uL Glucose 128 H (74-99) mg/dL Total Bilirubin 7.2 H (0.2-1.3) mg/dL Conjugated Bilirubin 2.4 H (0.0-0.3) mg/dL Unconjugated Bilirubin 3.1 H (0.0-1.1) mg/dL Delta Bilirubin 1.7 H (0.0-0.2) mg/dL AST 304 H (17-59) U/L ALT 303 H (21-72) U/L Alkaline Phosphatase 192 H (38-126) U/L Urine Protein Trace H (Negative) Urine Blood Trace H (Negative) Urine Bilirubin 2+ H (Negative) Calcium Oxalate Crystal Few H (None) /hpf Amorphous Sediment Rare H (None) /hpf Hyaline Casts 3 H (0-2) /lpf Urine Mucus Rare H (None) /hpf EBV Capsid Ag IgG Intrp (NEGATIVE) EBV Nuc Ag IgG Interp (NEGATIVE) 06/19/18 06/19/18 Range/Units 00:53 07:11 Lymphocytes # (1.0-4.8) k/uL Glucose 126 H (74-99) mg/dL Total Bilirubin 4.7 H (0.2-1.3) mg/dL Conjugated Bilirubin (0.0-0.3) mg/dL Unconjugated Bilirubin (0.0-1.1) mg/dL Delta Bilirubin (0.0-0.2) mg/dL AST 233 H (17-59) U/L ALT 252 H (21-72) U/L Alkaline Phosphatase 165 H (38-126) U/L Urine Protein (Negative) Urine Blood (Negative) Urine Bilirubin (Negative) Calcium Oxalate Crystal (None) /hpf Amorphous Sediment (None) /hpf Hyaline Casts (0-2) /lpf Urine Mucus (None) /hpf EBV Capsid Ag IgG Intrp POSITIVE H (NEGATIVE) EBV Nuc Ag IgG Interp POSITIVE H (NEGATIVE) Assessment and Plan Assessment: Assessment and Plan 1. Transaminitis with hyperbilirubinemia 2. Hypertension 3. Hyperlipidemia 4. BPH 5. Structural heart disease 1. Painless jaundice. CT of the abdomen pelvis unrevealing of obstruction or masses. Gallbladder ultrasound shows no dilated ducts. Total bilirubin 7.2- 4.7. AST 304 0233. ALT 303-252. Alkaline phosphatase 192-165. Gastroenterology consulted, recommend MRI of the biliary ducts and liver. Hepatitis panel negative, MARGIE screen negative, Tylenol toxicity negative. Benadryl for itching. Zofran as needed for nausea or vomiting. Continue normal saline at 100 mL/h. Start ceftriaxone to cover for gram-negative bacteria and Flagyl to cover for anaerobes given that patient has had recent fevers. Follow antimitochondrial, smooth muscle antibody. Follow gastroenterology recomm endations. 2. BP 148/84. Continue amlodipine, Coreg, lisinopril. Monitor vitals, adjust medications as necessary. 3. Hold statin due to liver disease. 4. Resume Flomax. 5. Will need adequate follow-up with Dr. Willard in the outpatient setting.
--- NOTE | 2018-06-19 19:56 | P.CONS ---
History of Present Illness - Reason for Consult Consult date: 06/19/18 Jaundice Requesting physician: Mariposa Bella - Chief Complaint Elevated bilirubin - History of Present Illness The patient is a very pleasant 58-year-old male with a medical history significant for coronary artery disease status post CABG, hypertension, dyslipidemia and BPH who presented for further evaluation of elevated bilirubin. The patient reports that he was feeling well this past weekend on Sunday with no acute complaints. He woke up on Sunday not feeling well. He reports subjective fever, chills and as if his teeth were chattering. He also reported associated sharp pain under his ribs which she described as constant and severe in nature. No prior episodes of abdominal pain reported. In addition the patient noted darkening of his urine, jaundice of his skin, lightening of the color of his stool and yellowing of his eyes. The patient denies any family history of cancer of the pancreas, biliary system or liver. The patient went to his primary doctor for further evaluation and was found to have elevated bilirubin and told to present to the hospital for further evaluation. On presentation to the hospital WBC count 6.9, hemoglobin 15.1, platelet count 206,000 with elevation in the patient's liver enzymes with a total bilirubin 7.2, alkaline phosphatase 192, AST 303 and ALTs 3-4. The patient had ultrasound in evaluation which showed no gallstones or dilated ducts with a mildly distended gallbladder and a common bile duct of 0.6 cm. Computed tomography scan of the abdomen showed a few sigmoid diverticuli with no diverticulosis, mil d free fluid in the abdomen, an enlarged prostate, and a nonobstructing right renal calculi with no dilated biliary ducts noted. Today the patient is seen sitting in his room reporting that yellowing of his skin has seemed to improve. He is feeling otherwise well. No further fevers or chills. He denies any history of liver disease or gallbladder disease. He denies any heavy consumption of alcohol or tattoos. He does believe he required blood transfusion in the remote past however reports being tested for viral hepatitis twice by his primary care physician both sides testing was negative. He denies any new medications, unusual foods but does report traveling to the [facility] a few months back. In addition the patient reports treatment with amoxicillin in April for a dental procedure. Review of Systems REVIEW OF SYSTEMS: CONSTITUTIONAL: He reported fevers and chills and overall feeling unwell prior to presentation. CARDIOVASCULAR: Denies any chest pain, palpitations high or low blood pressures RESPIRATORY: Denies any shortness of breath, hemoptysis or cough. GENITOURINARY: No dysuria or hematuria, but did report darkening of the urine. MUSCULOSKELETAL: No weakness reported. SKIN: Denies any new rashes or lesions, or pallor but does report jaundice and pruritus. PSYCHIATRIC: Denies any depression or anxiety. NEUROLOGY: Denies headache, denies any new focal deficits. EARS/NOSE/THROAT: No recent hearing change, congestion, nasal discharge or sore throat. EYES: No pain in eyes, discharge or change in vision. GASTROINTESTINAL: As per HPI. Past Medical History Past Medical History: Coronary Artery Disease (CAD), Hyperlipidemia, Hypertension, Osteoarthritis (OA), Prostate Disorder Additional Past Medical History / Comment(s): Pulmonary stenosis with pulmonic valve replacement, VSD-closed spontaneously, BPH, arthritis cervical and b ilateral knees, cervical calcium deposits, numbness R arm at times r/t cervical problems, gout. History of Any Multi-Drug Resistant Organisms: None Reported Past Surgical History: Cardiac Valve Replacement, Heart Catheterization Additional Past Surgical History / Comment(s): Other surgical hx: Median sternotomy and resection of RV sub-infundibular stenosis, cardiac caths x4, HEART SURGERY FOR TETRALOGY OF FALLOT (AGE 11), L hand fx with surgical repair, vasectomy R TKA Past Anesthesia/Blood Transfusion Reactions: No Reported Reaction Additional Past Anesthesia/Blood Transfusion Reaction / Comm: Pt received blood with surgery in past without reaction. Past Psychological History: Anxiety Smoking Status: Never smoker Past Alcohol Use History: Occasional Past Drug Use History: None Reported - Past Family History Mother Family Medical History: Cancer, Coronary Artery Disease (CAD), Myocardial Infarction (CA), Renal Disease Additional Family Medical History / Comment(s): Mother had multiple myeloma. She of renal failure. She had a CA and CABG in her early 60's. She had alot of CAD in her family. Father Family Medical History: Coronary Artery Disease (CAD), Myocardial Infarction (CA) Additional Family Medical History / Comment(s): Father had his first CA in his mid 60's and of a CA at the age of 82yrs. He had alot of CAD in his family. Medications and Allergies Home Medications Medication Instructions Recorded Confirmed Type Allopurinol [Zyloprim] 100 mg PO DAILY 12/07/15 06/18/18 History Amoxicillin 2,000 mg PO DIRECTED PRN 12/08/15 06/18/18 History Carvedilol [Coreg*] 12.5 mg PO BID-W/MEALS #60 tab 01/03/16 06/18/18 Rx Naproxen Sodium [Aleve] 440 mg PO HS 02/25/18 06/18/18 History Sildenafil Citrate [Sildenafil] 20 mg PO DIRECTED PRN 02/25/18 06/18/18 History Tamsulosin HCl [Flomax] 0.4 mg PO DAILY 02/25/18 06/18/18 History Testosterone [Vogelxo 1%] 1 gram TOPICAL DAILY 02/25/18 06/18/18 History amLODIPine BESYLATE/BENAZEPRIL 1 tab PO DAILY 02/25/18 06/18/18 History [amLODIPine BESYLATE/BENAZEPRIL 5-20 MG] Aspirin EC [Ecotrin Low Dose] 162 mg PO DAILY 02/28/18 06/18/18 History Atorvastatin [Lipitor] 80 mg PO HS 02/28/18 06/18/18 History Allergies Allergy/AdvReac Type Severity Reaction Status Date / Time No Known Allergies Allergy Verified 06/18/18 19:14 Physical Exam Vitals: Vital Signs Temp Pulse Pulse Resp BP BP Pulse Ox 06/19/18 14:45 98.6 F 79 149/82 97 06/19/18 07:30 98.4 F 70 148/84 96 06/19/18 01:17 99.1 F 85 16 139/80 96 06/18/18 23:36 98.7 F 89 16 172/88 96 06/18/18 23:15 98.3 F 69 18 155/83 97 Intake and Output 06/19/18 06/19/18 06/19/18 06:59 14:59 22:59 Intake Total 1350 Balance 1350 Intake: Intake, IV Titration 850 Amount Sodium Chloride 0.9% 1, 650 000 ml @ 100 mls/hr IV . Q10H [facility] Rx#:[id number] cefTRIAXone 1 gm In 100 Sodium Chloride 0.9% 50 ml @ 100 mls/hr IVPB Q24HR [facility] Rx#:[id number] metroNIDAZOLE-NS PMX 500 100 mg In Saline 1 100ml.bag @ 100 mls/hr IVPB Q8HR [facility] Rx#:[id number] Oral 500 Other: Voiding Method Toilet # Bowel Movements 1 On physical examination, patient appears comfortable in no apparent distress. HEAD: Normocephalic, atraumatic. EYES: Scleral icterus. No conjunctival injection. MOUTH: No lesions, tongue midline. NECK: Trachea midline, no gross abnormalities. CHEST: Clear to auscultation with no wheezing or rhonchi appreciated. HEART: Regular rate and rhythm. ABDOMEN: Soft, obese. Bowel sounds are positive. No organomegaly. No guarding or rigidity. EXTREMITIES: No pedal edema. SKIN: No rashes, jaundice with visible excoriations on the patient's arms. NEUROLOGIC: Alert and oriented x3. No focal deficits. Results CBC & Chem 7: 06/19/18 07:11 06/19/18 07:11 Labs: Abnormal Lab Results - Last 24 Hours (Table) 06/19/18 06/19/18 Range/Units 00:53 07:11 Glucose 126 H (74-99) mg/dL Total Bilirubin 4.7 H (0.2-1.3) mg/dL AST 233 H (17-59) U/L ALT 252 H (21-72) U/L Alkaline Phosphatase 165 H (38-126) U/L EBV Capsid Ag IgG Intrp POSITIVE H (NEGATIVE) EBV Nuc Ag IgG Interp POSITIVE H (NEGATIVE) CT scan - abdomen: report reviewed (Computed tomography scan of the abdomen showed a few sigmoid diverticuli with no diverticulosis, mild free fluid in the abdomen, an enlarged prostate, and a nonobstructing right renal calculi with no dilated biliary ducts noted.) Assessment and Plan (1) Elevated liver enzymes Narrative/Plan: Patient presenting with elevated liver enzymes with both a cholestatic and hepatocellular pattern. Patient does report abdominal pain and fevers prior to presentation however he has had no white count or fevers since being admitted. Acute viral hepatitis panel has been negative. AMA has been negative. Ultrasound and computed tomography scan did not identify any gallstones or dilation of the biliary tree. No pancreatic mass noted on computed tomography scan. Differential at this point includes a drug-induced liver injury in a patient reports taking amoxicillin for a dental procedure, versus choledocholithiasis given presentation of abdominal pain although absence of biliary dilation and stones on ultrasound and CT makes this less likely, versus intrinsic liver disease or other etiology. Current Visit: Yes Status: Acute Code(s): R74.8 - ABNORMAL LEVELS OF OTHER SERUM ENZYMES SNOMED Code(s): 283205531 (2) Pruritus Current Visit: Yes Status: Acute Code(s): L29.9 - PRURITUS, UNSPECIFIED SNOMED Code(s): 601174258 (3) Jaundice Current Visit: Yes Status: Acute Code(s): R17 - UNSPECIFIED JAUNDICE SNOMED Code(s): 83948498 Plan: Supportive care Okay for diet Nothing by mouth after midnight MRI/MRCP was ordered for further evaluation of the pancreas as well as the biliary system however the patient cannot fit in the machine and the procedure had to be aborted Continue to monitor liver enzymes and INR No evidence of encephalopathy Benadryl and cholestyramine ordered for pruritus Liver serology ordered, viral hepatitis panel negative at this time No plans for ERCP at this time, however further determination will be made based on the patient's liver enzymes and clinical course, this plan has been d iscussed with the patient and his at length as well as the risks, benefits and side effects of the procedure Ceftriaxone and Flagyl have been started given reports of fevers at home and chills Thank you for allowing us to participate in the care of the patient we will continue to follow
[2018-06-19] MEDS: CHOLESTYRAMINE (WITH SUGAR) 4 GM PACKET PO SCH (20:39)
[2018-06-20] MEDS: SODIUM CHLORIDE 0.9% 1,000 ML IV SCH ×2 (04:41→13:47)
[2018-06-20 06:27] LABS: Albumin 3.4 g/dL (3.5-5.0); Bilirubin, Delta 0.9 mg/dL (0.0-0.2); Bilirubin,Unconjugated 1.2 mg/dL (0.0-1.1); Total Bilirubin 2.1 mg/dL (0.2-1.3); Total Protein 5.7 g/dL (6.3-8.2)
[2018-06-20 06:28] LABS: INR 0.9 (<1.2); Prothrombin Time 10.2 sec (9.0-12.0)
[2018-06-20] MEDS: ALLOPURINOL 100 MG TAB PO SCH (08:07)
[2018-06-20] MEDS: TAMSULOSIN 0.4 MG CAP.ER.24H PO SCH (08:07)
[2018-06-20] MEDS: LISINOPRIL 20 MG TAB PO SCH (08:07)
[2018-06-20] MEDS: metroNIDAZOLE-NS PMX 500 MG in SALINE 1 100ML.BAG IVPB SCH ×3 (08:08→23:32)
[2018-06-20] MEDS: CARVEDILOL 12.5 MG TAB PO SCH ×2 (08:08→17:49)
[2018-06-20] MEDS: amLODIPine 5 MG TAB PO SCH (08:08)
[2018-06-20] MEDS: CHOLESTYRAMINE (WITH SUGAR) 4 GM PACKET PO SCH ×2 (10:00→17:49)
[2018-06-20] MEDS: ASPIRIN 81 MG PO SCH (10:05)
--- NOTE | 2018-06-20 11:08 | P.PN ---
Subjective Progress Note Date: 06/20/18 Principal diagnosis: Elevated liver enzymes Patient was seen and examined. No acute events overnight. Patient reports no abdominal pain. Reports color change in his urine and stool almost back to normal. Denies any chest pain, shortness of breath or palpitations. No more pr uritus. Denies fever or chills. No nausea or vomiting. Objective - Vital Signs Vital signs: Vital Signs Temp 98.8 F 06/20/18 07:00 Pulse 80 06/20/18 07:00 Resp 18 06/20/18 08:00 BP 168/99 06/20/18 07:00 Pulse Ox 97 06/20/18 07:00 Intake & Output 06/19/18 06/20/18 06/20/18 18:59 06:59 18:59 Intake Total 1350 1540 Balance 1350 1540 Intake: Intake, IV Titration 850 1000 Amount Sodium Chloride 0.9% 1, 1000 000 ml @ 100 mls/hr IV . Q10H [facility] Rx#:[id number] Sodium Chloride 0.9% 1, 650 000 ml @ 100 mls/hr IV . Q10H [facility] Rx#:[id number] cefTRIAXone 1 gm In 100 Sodium Chloride 0.9% 50 ml @ 100 mls/hr IVPB Q24HR [facility] Rx#:[id number] metroNIDAZOLE-NS PMX 500 100 mg In Saline 1 100ml.bag @ 100 mls/hr IVPB Q8HR [facility] Rx#:[id number] Oral 500 540 Other: Voiding Method Toilet # Voids 3 # Bowel Movements 1 - Exam General: [non toxic], [no distress], [appears at stated age] Derm: [warm], [dry] Head: [atraumatic], [normocephalic], [symmetric] Eyes: [EOMI], [no lid lag], [jaundice sclera] Mouth: [no lip lesion], [mucus membranes moist] Cardiovascular: [S1S2 reg], [no murmur], [positive DP pulse bilateral], Lungs: [CTA bilateral], [no rhonchi, no rales] , [no accessory muscle use] Abdominal: [soft], [ nontender to palpation], [no guarding], [no appreciable organomegaly] Ext: [no gross muscle atrophy], [no edema], [no contractures] Neuro: [no focal neuro deficits] Psych: [Alert], [oriented], [appropriate affect] - Labs CBC & Chem 7: 06/19/18 07:11 06/19/18 07:11 Labs: Abnormal Lab Results - Last 24 Hours (Table) 06/19/18 06/20/18 Range/Units 00:53 05:44 Total Bilirubin 2.1 H (0.2-1.3) mg/dL Unconjugated Bilirubin 1.2 H (0.0-1.1) mg/dL Delta Bilirubin 0.9 H (0.0-0.2) mg/dL AST 168 H (17-59) U/L ALT 173 H (21-72) U/L Alkaline Phosphatase 148 H (38-126) U/L Total Protein 5.7 L (6.3-8.2) g/dL Albumin 3.4 L (3.5-5.0) g/dL EBV Capsid Ag IgG Intrp POSITIVE H (NEGATIVE) EBV Nuc Ag IgG Interp POSITIVE H (NEGATIVE) Assessment and Plan Assessment: Assessment and Plan 1. Transaminitis with hyperbilirubinemia 2. Hypertension 3. Hyperlipidemia 4. BPH 5. Structural heart disease 1. Painless jaundice. CT of the abdomen pelvis unrevealing of obstruction or masses. Gallbladder ultrasound shows no dilated ducts. Total bilirubin 7.2-4.7-2.1. AST 304-233-168. ALT 303-252-173. Alkaline phosphatase 192-165-148. MRI/MRCP attempted, unable to fit and machine. Gastroenterology recommending ERCP the patient would rather watch and wait, repeat LFTs in the AM. Hepatitis panel negative, MARGIE screen negative, Tylenol toxicity negative. Benadryl for itching. Zofran as needed for nausea or vomiting. Continue normal saline at 100 mL/h. Start ceftriaxone to cover for gram-negative bacteria and Flagyl to cover for anaerobes given that patient has had recent fevers. Follow antimitochondrial, smooth muscle antibody. Follow gastroenterology recommendations. 2. BP 168/99. Continue amlodipine, Coreg, lisinopril. Monitor vitals, adjust medications as necessary. 3. Hold statin due to liver disease. 4. Resume Flomax. 5. Will need adequate follow-up with Dr. Willard in the outpatient setting. Liver enzymes trending down. Patient prefers not to do ERCP due to complications with anesthesia. Will follow LFT in the morning. Anticipate DC tomorrow if continued improvement.
[2018-06-20 11:23] LABS: Iron Saturation 14.71 (15.00-50.00); Protein, Total 5.7 g/dL (6.2-8.2)
[2018-06-20 13:10] LABS: Ceruloplasmin 27.1 mg/dL (20.0-60.0)
[2018-06-20 13:48] LABS: Albumin 3.24 g/dL (3.80-4.90); Gamma Globulin 0.75 g/dL (0.70-1.50)
--- NOTE | 2018-06-20 22:27 | P.PN ---
Subjective Progress Note Date: 06/20/18 Principal diagnosis: Jaundice, elevated bilirubin The patient is seen sitting bedside today. Reports feeling well. Reports that jaundice has improved. Urine looks less dark the previously. Tolerating his diet. No abdominal pain reported. Objective - Vital Signs Vital signs: Vital Signs Temp 98.1 F 06/20/18 19:20 Pulse 74 06/20/18 19:20 Resp 16 06/20/18 19:20 BP 146/85 06/20/18 19:20 Pulse Ox 97 06/20/18 07:00 Intake & Output 06/20/18 06/20/18 06/21/18 06:59 18:59 06:59 Intake Total 1540 Balance 1540 Intake: Intake, IV Titration 1000 Amount Sodium Chloride 0.9% 1, 1000 000 ml @ 100 mls/hr IV . Q10H [facility] Rx#:[id number] Oral 540 Other: Voiding Method Toilet # Voids 3 - Exam On physical examination, patient appears comfortable in no apparent distress. HEAD: Normocephalic, atraumatic. EYES: Scleral icterus improved. No conjunctival injection. MOUTH: No lesions, tongue midline. NECK: Trachea midline, no gross abnormalities. CHEST: Clear to auscultation with no wheezing or rhonchi appreciated. HEART: Regular rate and rhythm. ABDOMEN: Soft, obese. Bowel sounds are positive. No organomegaly. No guarding or rigidity. EXTREMITIES: No pedal edema. SKIN: No rashes, less jaundiced. NEUROLOGIC: Alert and oriented x3. No focal deficits. - Labs CBC & Chem 7: 06/19/18 07:11 06/19/18 07:11 Labs: Abnormal Lab Results - Last 24 Hours (Table) 06/20/18 06/20/18 Range/Units 05:44 05:44 Iron 35 L (65-175) ug/dL Iron Saturation 14.71 L (15.00-50.00) Ferritin 476.7 H (22.0-322.0) ng/mL Total Bilirubin 2.1 H (0.2-1.3) mg/dL Unconjugated Bilirubin 1.2 H (0.0-1.1) mg/dL Delta Bilirubin 0.9 H (0.0-0.2) mg/dL AST 168 H (17-59) U/L ALT 173 H (21-72) U/L Alkaline Phosphatase 148 H (38-126) U/L Total Protein 5.7 L (6.3-8.2) g/dL Total Protein (PEP) 5.7 L (6.2-8.2) g/dL Albumin 3.4 L (3.5-5.0) g/dL Albumin (PEP) 3.24 L (3.80-4.90) g/dL Assessment and Plan (1) Elevated liver enzymes Narrative/Plan: Patient presenting with elevated liver enzymes with both a cholestatic and hepatocellular pattern. Patient does report abdominal pain and fevers prior to presentation however he has had no white count or fevers since being admitted. Acute viral hepatitis panel has been negative. AMA, ASMA, ceruloplasmin, alpha- 1 antitrypsin, iron studies and AMA have all been negative and/or within normal limits. Ultrasound and computed tomography scan did not identify any gallstones or dilation of the biliary tree. No pancreatic mass noted on computed t omography scan. Differential at this point includes a drug-induced liver injury in a patient reports taking amoxicillin for a dental procedure, versus choledocholithiasis or a passed gallstone or other etiology. Current Visit: Yes Status: Acute Code(s): R74.8 - ABNORMAL LEVELS OF OTHER SERUM ENZYMES SNOMED Code(s): 189589060 (2) Pruritus Current Visit: Yes Status: Acute Code(s): L29.9 - PRURITUS, UNSPECIFIED SNOMED Code(s): 842036528 (3) Jaundice Current Visit: Yes Status: Acute Code(s): R17 - UNSPECIFIED JAUNDICE SNOMED Code(s): 80520454 Plan: Supportive care Okay for diet Nothing by mouth after midnight MRI/MRCP was ordered for further evaluation of the pancreas as well as the biliary system however the patient cannot fit in the machine and the procedure had to be aborted Continue to monitor liver enzymes and INR No evidence of encephalopathy Benadryl and cholestyramine ordered for pruritus Liver serology has been negative Liver enzymes continue to improve, however remained equivocal today patient was offered ERCP for further evaluation but at this point he would like to continue to monitor before a decision is made on whether he would like to proceed with ERCP (the risks, side effects and benefits of both proceeding with the procedure as well as continuing to monitor were discussed with the patient at length and all his questions answered to his satisfaction) Ceftriaxone and Flagyl have been started given reports of fevers at home and chills Thank you for allowing us to participate in the care of the patient we will continue to follow
[2018-06-21] MEDS: SODIUM CHLORIDE 0.9% 1,000 ML IV SCH ×2 (01:55→11:22)
[2018-06-21 02:03] VITALS: RESP 18; TEMP 98.3
[2018-06-21] MEDS: metroNIDAZOLE-NS PMX 500 MG in SALINE 1 100ML.BAG IVPB SCH (07:25)
[2018-06-21 07:41] LABS: Albumin 3.6 g/dL (3.5-5.0); Bilirubin, Delta 0.9 mg/dL (0.0-0.2); Bilirubin,Unconjugated 0.8 mg/dL (0.0-1.1); Total Bilirubin 1.7 mg/dL (0.2-1.3); Total Protein 6.4 g/dL (6.3-8.2)
[2018-06-21 07:49] VITALS: BP 148/93; PULSE 71
[2018-06-21] MEDS: ASPIRIN 81 MG PO SCH (09:10)
[2018-06-21] MEDS: ALLOPURINOL 100 MG TAB PO SCH (09:10)
[2018-06-21] MEDS: LISINOPRIL 20 MG TAB PO SCH (09:10)
[2018-06-21] MEDS: amLODIPine 5 MG TAB PO SCH (09:10)
[2018-06-21] MEDS: TAMSULOSIN 0.4 MG CAP.ER.24H PO SCH (09:10)
[2018-06-21] MEDS: CARVEDILOL 12.5 MG TAB PO SCH (09:10)
--- NOTE | 2018-06-21 10:55 | P.DS ---
Providers Date of admission: 06/18/18 22:03 Expected date of discharge: 06/21/18 Attending physician: Mariposa Bella DO Consults: 06/18/18 22:29 Consult Physician Stat Consulting Provider: Kemal Luong Consult Reason/Comments: jaundice, hyperbilirubinemia, elevated LFTs Do you want consulting provider notified?: Yes Primary care physician: Clint Vargas [place] Course: 58-year-old male with a past medical history of coronary artery disease status post 4 vessel bypass, tetralogy of flow status post repair, hypertension, dyslipidemia, and BPH who presented to the ER at the direction of the nurse practitioner from Dr. Linda's office for elevated bilirubin levels. In the ER he underwent a comprehensive evaluation. His initial vital signs were within normal limits. Laboratory analysis showed an elevated bilirubin at 7.4. An elevated AST, ALP and alk phos as well. He underwent a CT abdomen and pelvis which showed some free fluid in the pelvis as well as an enlarged prostate but no abnormalities within the gallbladder. He underwent a right upper quadrant ultrasound which did not show any dilated ducts or gallbladder abnormalities. He was given IV fluids in the ER and arrangements were made for admission. He reports that 2 days ago he noted fevers and chills at home. He then began having sharp pain underneath his rib cage which was constant in nature, He states that nothing helped the pain such a movements/eating/not eating. He then went to the urgent care [place] yesterday at Dr. Linda's office as he noted of cold and her clarissa color to his urine. Early this morning he noted itching of his chest wall, yellowing of his skin was noted by his , and he had a stool that was chu or white in color and he therefore went back to Dr. Linda's office. When he awoke today his abdominal pain was gone. They tested his urine which was positive for bilirubin and ran labs and told him to come to the ER for elevated bilirubin levels and possible need for CAT scan. He reports chills again last night with a T-max of 101.5, today his Temperature has been 98.3. He does report feeling slightly lightheaded a couple of days ago and h aving decreased appetite. He reports that since receiving IV fluids in the ER his urine is lightening in color. He denies any recent travel. His last trip out of the country was in late April or early May on a [place] cruise. He has not ate anything unusual. No new medications. People at work with cold symptoms but no other sick contacts. With regard to his transaminitis with hyperbilirubinemia his LFTs were trended. Total bilirubin trended from 7.2-4.7-2.1-1.7. AST trended from [phone]. ALT trended from [phone]. Alcohol phosphatase trended from [phone]. MRI and MRCP was attempted but patient was unable to fit in the machine. Gastroenterology was consulted and recommended ERCP. Patient refused the procedure, due to adverse effect with anesthesia. His hepatitis panel was negative. MARGIE screen was negative. He was given Zofran as needed for nausea or vomiting. He was given Benadryl for itching. He was started on Rocephin and Flagyl by GI to cover for anaerobic and gram-negative infection. Otherwise, his home medications were resumed for hypertension, hyperlipidemia and BPH. Patient was seen and examined. No acute events overnight. Patient reports complete resolution of his symptoms. States that his stool and urine is back to within normal limits. He denies any abdominal pain, nausea or vomiting, fever or chills. Patient reports not wanting ERCP due to the fact that he has adverse effects with anesthesia. He would rather trend his LFTs in the outpatient setting than undergo any procedures. He denies any chest pain, shortness of breath or palpitations. Looking for to going home. General: [non toxic], [no distress], [appears at stated age] Derm: [warm], [dry] Head: [atraumatic], [normocephalic], [symmetric] Eyes: [EOMI], [no lid lag], [jaundice sclera, improved] Mouth: [no lip lesion], [mucus membranes moist] Cardiovascular: [S1S2 reg], [no murmur], [positive DP pulse bilateral], Lungs: [CTA bilateral], [no rhonchi, no rales] , [no accessory muscle use] Abdominal: [soft], [ nontender to palpation], [no guarding], [no appreciable organomegaly] Ext: [no gross muscle atrophy], [no edema], [no contractures] Neuro: [no focal neuro deficits] Psych: [Alert], [oriented], [appropriate affect] Assessment and Plan 1. Transaminitis with hyperbilirubinemia 2. Hypertension 3. Hyperlipidemia 4. BPH 5. Structural heart disease 1. Painless jaundice. CT of the abdomen pelvis unrevealing of obstruction or masses. Gallbladder ultrasound shows no dilated ducts. Total bilirubin 7.2-4.7-2.1-1.7. AST [phone]. ALT [phone]. Alkaline phosphatase [phone]. MRI/MRCP attempted, unable to fit and machine. Gastroenterology recommending ERCP the patient would rather watch and wait, repeat LFTs in the AM. Hepatitis panel negative, MARGIE screen negative, Tylenol toxicity negative. Benadryl for itching. Zofran as needed for nausea or vomiting. DC IVF and encourage by mouth hydration. DC antibiotics as there is no signs of infection. Follow antimitochondrial, smooth muscle antibody. Follow gastroenterology recommendations. 2. BP 148/93. Continue amlodipine, Coreg, lisinopril. Monitor vitals, adjust medications as necessary. 3. Hold statin due to liver disease. 4. Resume Flomax. 5. Will need adequate follow-up with Dr. Willard in the outpatient setting. Liver enzymes trending down. Patient prefers not to do ERCP due to complications with anesthesia. DC today pending GI clearance. Pertinent Studies: CT abdomen and pelvis, chest x-ray, gallbladder ultrasound Patient Condition at Discharge: Stable Plan - Discharge Summary Discharge Rx Participant: Yes New Discharge Prescriptions: New Aspirin 162 mg PO DAILY chew Continue Allopurinol [Zyloprim] 100 mg PO DAILY Carvedilol [Coreg*] 12.5 mg PO BID-W/MEALS #60 tab amLODIPine BESYLATE/BENAZEPRIL [amLODIPine BESYLATE/BENAZEPRIL 5-20 MG] 1 tab PO DAILY Sildenafil Citrate [Sildenafil] 20 mg PO DIRECTED PRN PRN Reason: E.D. Tamsulosin HCl [Flomax] 0.4 mg PO DAILY Aspirin EC [Ecotrin Low Dose] 162 mg PO DAILY Atorvastatin [Lipitor] 80 mg PO HS Discontinued Amoxicillin 2,000 mg PO DIRECTED PRN PRN Reason: PRIOR TO DENTAL WORK Naproxen Sodium [Aleve] 440 mg PO HS Testosterone [Vogelxo 1%] 1 gram TOPICAL DAILY Discharge Medication List Allopurinol [Zyloprim] 100 mg PO DAILY 12/07/15 [History] Carvedilol [Coreg*] 12.5 mg PO BID-W/MEALS #60 tab 01/03/16 [Rx] Sildenafil Citrate [Sildenafil] 20 mg PO DIRECTED PRN 02/25/18 [History] Tamsulosin HCl [Flomax] 0.4 mg PO DAILY 02/25/18 [History] amLODIPine BESYLATE/BENAZEPRIL [amLODIPine BESYLATE/BENAZEPRIL 5-20 MG] 1 tab PO DAILY 02/25/18 [History] Aspirin EC [Ecotrin Low Dose] 162 mg PO DAILY 02/28/18 [History] Atorvastatin [Lipitor] 80 mg PO HS 02/28/18 [History] Aspirin 162 mg PO DAILY chew 06/21/18 [Rx] Follow up Appointment(s)/Referral(s): Clint Linda MD [Primary Care Provider] - 1-2 days Williams Dc MD [STAFF PHYSICIAN] - 1 Week Ambulatory/Diagnostic Orders: Comprehensive Metabolic Panel [LAB.AMB] Time Frame: 3 Days, Location: None Selected Activity/Diet/Wound Care/Special Instructions: Diet: Low-fat Follow-up with PCP within 1-2 days of discharge. Obtain LFT within 3 days of discharge. Follow-up with PCP for results. Follow-up with GI with the appointment given to you. Take all medications as advised. Come back to the ED or call 911 for worsening abdominal pain, uncontrollable nausea vomiting, fever or chills. Discharge Disposition: HOME SELF-CARE
[2018-06-21] MEDS: CHOLESTYRAMINE (WITH SUGAR) 4 GM PACKET PO SCH (11:16)
== END 2018-06-21 16:41 | disposition home or self-care (01) | DRG 443 ==
LOC: EC 17:32 → 4SSUR 22:03
PROVIDERS: ADMIT Internal Medicine; ATTEND Internal Medicine
DX: R17 Unspecified jaundice (principal); E66.9 Obesity, unspecified; E78.5 Hyperlipidemia, unspecified; F41.9 Anxiety disorder, unspecified; I10 Essential (primary) hypertension; I25.10 Atherosclerotic heart disease of native coronary artery without angina pectoris; K82.8 Other specified diseases of gallbladder; L29.9 Pruritus, unspecified; N40.0 Benign prostatic hyperplasia without lower urinary tract symptoms; M10.9 Gout, unspecified; M17.12 Unilateral primary osteoarthritis, left knee; M47.9 Spondylosis, unspecified; Z68.31 Body mass index [BMI] 31.0-31.9, adult; Z79.82 Long term (current) use of aspirin; Z79.899 Other long term (current) drug therapy; Z95.1 Presence of aortocoronary bypass graft; Z95.2 Presence of prosthetic heart valve; Z96.651 Presence of right artificial knee joint; Z80.7 Family history of other malignant neoplasms of lymphoid, hematopoietic and related tissues; Z82.49 Family history of ischemic heart disease and other diseases of the circulatory system; Z84.1 Family history of disorders of kidney and ureter
CPT/HCPCS: 36415; 71046; 74177; 76705; 80053; 80074; 80076; 81001; 82103; 82248; 82390; 82550; 82728; 83516; 83520; 83540; 83550; 83605; 83690; 84165; 84484; 85025; 85027; 85610; 85730; 86038; 86376; 86663; 86664; 86665; 93005; 96360; 96361; 99285

== ENCOUNTER → 2018-06-24 | Outpatient (CLI) | payer MEDICAID ==
[2018-06-24 23:45] LABS: Albumin 4.5 g/dL (3.80-4.90); Albumin/Globulin Ratio 2.14 (1.60-3.17); Anion Gap 12.5 mmol/L (4.00-12.00); Bilirubin, Conjugated 0.8 mg/dL (0.20-0.40); Bilirubin,Unconjugated 0.8 mg/dL; Calcium 9.3 mg/dL (8.7-10.3); Carbon Dioxide 21.5 mmol/L (21.6-31.8); Globulin 2.1 g/dL (1.6-3.3); Potassium 4.1 mmol/L (3.5-5.5); Total Bilirubin 1.6 mg/dL (0.2-1.2); Total Protein 6.6 g/dL (6.2-8.2)
== END | disposition home or self-care (01) ==
LOC: LABWHC1 17:13
DX: R17 Unspecified jaundice (principal)
CPT/HCPCS: 36415; 80053; 82248

== ENCOUNTER 2019-06-18 09:16 | Inpatient (IN) | payer MEDICAID ==
--- NOTE | 2019-06-18 09:50 | ED ---
General Adult HPI - General Chief complaint: Shortness of Breath Stated complaint: Pneumonia Time Seen by Provider: 06/18/19 09:20 Source: patient, RN notes reviewed, old records reviewed Mode of arrival: wheelchair Limitations: no limitations - History of Present Illness Initial comments: This is a 59-year-old male who presents emergency department and this a day of cough. Patient states the cough is getting better. Patient states she was placed on steroids and given an albuterol inhaler on Sunday. Patient states on Sunday he did have 102 fever but he hasn't had any fever since. Patient denies any shortness of breath or chest pain. Patient denies any palpitations. Patient denies any nausea vomiting or diarrhea. Patient denies any conjunctival injection. Patient denies any headache patient denies numbness weakness. Patient's only complaint currently is that he has a cough which is improving. Patient states his primary medical care doctor's on the [place] and did not try and thought he had pneumonia. - Related Data Home Medications Medication Instructions Recorded Confirmed Allopurinol [Zyloprim] 100 mg PO BID 12/07/15 06/18/19 amLODIPine BESYLATE/BENAZEPRIL 1 tab PO DAILY 02/25/18 06/18/19 [amLODIPine BESYLATE/BENAZEPRIL 5-20 MG] Aspirin EC [Ecotrin Low Dose] 162 mg PO DAILY 02/28/18 06/18/19 Atorvastatin [Lipitor] 80 mg PO HS 02/28/18 06/18/19 Naproxen Sodium [Aleve] 220 mg PO Q8H PRN 06/18/19 06/18/19 Terazosin [Hytrin] 5 mg PO HS 06/18/19 06/18/19 Testosterone [Androgel 1% Gel 5 gram TOPICAL Q3D 06/18/19 06/18/19 Packet] Previous Rx's Medication Instructions Recorded Carvedilol [Coreg*] 12.5 mg PO BID-W/MEALS #60 tab 01/03/16 Allergies Allergy/AdvReac Type Severity Reaction Status Date / Time No Known Allergies Allergy Verified 06/18/19 11:35 Review of Systems ROS Statement: Those systems with pertinent positive or pertinent negative responses have been documented in the HPI. ROS Other: All systems not noted in ROS Statement are negative. Past Medical History Past Medical History: Coronary Artery Disease (CAD), Hyperlipidemia, Hypertension, Osteoarthritis (OA), Prostate Disorder Additional Past Medical History / Comment(s): Pulmonary stenosis with pulmonic valve replacement, VSD-closed spontaneously, BPH, arthritis cervical and bilater al knees, cervical calcium deposits, numbness R arm at times r/t cervical problems, gout. History of Any Multi-Drug Resistant Organisms: None Reported Past Surgical History: Cardiac Valve Replacement, Heart Catheterization Additional Past Surgical History / Comment(s): Other surgical hx: Median sternotomy and resection of RV sub-infundibular stenosis, cardiac caths x4, HEART SURGERY FOR TETRALOGY OF FALLOT (AGE 11), L hand fx with surgical repair, vasectomy R TKA Past Anesthesia/Blood Transfusion Reactions: No Reported Reaction Additional Past Anesthesia/Blood Transfusion Reaction / Comment(s): Pt received blood with surgery in past without reaction. Past Psychological History: Anxiety Smoking Status: Never smoker Past Alcohol Use History: Occasional Past Drug Use History: None Reported - Past Family History Mother Family Medical History: Cancer, Coronary Artery Disease (CAD), Myocardial Infarction (OK), Renal Disease Additional Family Medical History / Comment(s): Mother had multiple myeloma. She of renal failure. She had a OK and CABG in her early 60's. She had alot of CAD in her family. Father Family Medical History: Coronary Artery Disease (CAD), Myocardial Infarction (OK) Additional Family Medical History / Comment(s): Father had his first OK in his mid 60's and of a OK at the age of 82yrs. He had alot of CAD in his family. General Exam - General Exam Comments Initial Comments: GENERAL: Patient is well-developed and well-nourished. Patient is nontoxic and well- hydrated and is in no acute distress. ENT: Neck is soft and supple. No significant lymphadenopathy is noted. Oropharynx is clear. Moist mucous membranes. Neck has full range of motion without eliciting any pain. EYES: The sclera were anicteric and conjunctiva were pink and moist. Extraocular movements were intact and pupils were equal round and reactive to light. Eyelids were unremarkable. PULMONARY: Unlabored respirations. Good breath sounds bilaterally. No audible rales rhonchi or wheezing was noted. CARDIOVASCULAR: There is a regular rate and rhythm without any murmurs gallops or rubs. ABDOMEN: Soft and nontender with normal bowel sounds. SKIN: Skin is clear with no lesions or rashes and otherwise unremarkable. NEUROLOGIC: Patient is alert and oriented x3. Cranial nerves II through XII are grossly intact. Motor and sensory are also intact. Normal speech, volume and content. Symmetrical smile. MUSCULOSKELETAL: Normal extremities with adequate strength and full range of motion. LYMPHATICS: No significant lymphadenopathy is noted PSYCHIATRIC: Normal psychiatric evaluation. Limitations: no limitations Course Vital Signs 06/18/19 06/18/19 09:19 11:38 Temperature 99.2 F 98.5 F Pulse Rate 82 80 Respiratory 20 18 Rate Blood Pressure 126/78 111/71 O2 Sat by Pulse 95 95 Oximetry Medical Decision Making - Medical Decision Making X-ray shows bilateral lower lobe infiltrate. So the patient on antibiotics. I test the patient for COVID. I spoke with Dr. Bella she agreed to admit the patient admitted the patient wrote admitting orders. - Lab Data Result diagrams: 06/18/19 10:10 06/18/19 10:10 Lab Results 06/18/19 06/18/19 06/18/19 Range/Units 10:10 10:10 10:10 WBC (3.8-10.6) k/uL RBC (4.30-5.90) m/uL Hgb (13.0-17.5) gm/dL Hct (39.0-53.0) % MCV (80.0-100.0) fL MCH (25.0-35.0) pg MCHC (31.0-37.0) g/dL RDW (11.5-15.5) % Plt Count (150-450) k/uL Neutrophils % % Lymphocytes % % Monocytes % % Eosinophils % % Basophils % % Neutrophils # (1.3-7.7) k/uL Lymphocytes # (1.0-4.8) k/uL Monocytes # (0-1.0) k/uL Eosinophils # (0-0.7) k/uL Basophils # (0-0.2) k/uL Sodium 132 L (137-145) mmol/L Potassium 4.3 (3.5-5.1) mmol/L Chloride 101 (98-107) mmol/L Carbon Dioxide 20 L (22-30) mmol/L Anion Gap 11 mmol/L BUN 18 (9-20) mg/dL Creatinine 0.70 (0.66-1.25) mg/dL Est GFR (CKD-EPI)AfAm >90 (>60 ml/min/1.73 sqM) Est GFR (CKD-EPI)NonAf >90 (>60 ml/min/1.73 sqM) Glucose 192 H (74-99) mg/dL Plasma Lactic Acid Chalo 1.3 (0.7-2.0) mmol/L Calcium 8.6 (8.4-10.2) mg/dL Total Bilirubin 2.0 H (0.2-1.3) mg/dL AST 99 H (17-59) U/L ALT 41 (4-49) U/L Alkaline Phosphatase 67 (38-126) U/L Troponin I <0.012 (0.000-0.034) ng/mL C-Reactive Protein (<10.0) mg/L Total Protein 6.8 (6.3-8.2) g/dL Albumin 3.8 (3.5-5.0) g/dL 06/18/19 06/18/19 Range/Units 10:10 10:10 WBC 10.5 (3.8-10.6) k/uL RBC 4.98 (4.30-5.90) m/uL Hgb 15.4 (13.0-17.5) gm/dL Hct 45.1 (39.0-53.0) % MCV 90.5 (80.0-100.0) fL MCH 31.0 (25.0-35.0) pg MCHC 34.2 (31.0-37.0) g/dL RDW 12.7 (11.5-15.5) % Plt Count 201 (150-450) k/uL Neutrophils % 89 % Lymphocytes % 5 % Monocytes % 4 % Eosinophils % 0 % Basophils % 0 % Neutrophils # 9.4 H (1.3-7.7) k/uL Lymphocytes # 0.6 L (1.0-4.8) k/uL Monocytes # 0.4 (0-1.0) k/uL Eosinophils # 0.0 (0-0.7) k/uL Basophils # 0.0 (0-0.2) k/uL Sodium (137-145) mmol/L Potassium (3.5-5.1) mmol/L Chloride (98-107) mmol/L Carbon Dioxide (22-30) mmol/L Anion Gap mmol/L BUN (9-20) mg/dL Creatinine (0.66-1.25) mg/dL Est GFR (CKD-EPI)AfAm (>60 ml/min/1.73 sqM) Est GFR (CKD-EPI)NonAf (>60 ml/min/1.73 sqM) Glucose (74-99) mg/dL Plasma Lactic Acid Chalo (0.7-2.0) mmol/L Calcium (8.4-10.2) mg/dL Total Bilirubin (0.2-1.3) mg/dL AST (17-59) U/L ALT (4-49) U/L Alkaline Phosphatase (38-126) U/L Troponin I (0.000-0.034) ng/mL C-Reactive Protein 72.7 H (<10.0) mg/L Total Protein (6.3-8.2) g/dL Albumin (3.5-5.0) g/dL Critical Care Time Critical Care Time: Yes Total Critical Care Time: 35 Disposition Clinical Impression: Pneumonia, COVID-19 Disposition: ADMITTED IP TO THIS HOSP Referrals: Clint Linda MD [Primary Care Provider] - 1-2 days Time of Disposition: 12:46
[2019-06-18 10:27] LABS: Basophils % (A) 0 %; Eosinophils % (A) 0 %; HCT 45.1 % (39.0-53.0); HGB 15.4 gm/dL (13.0-17.5); Lymphocytes # (A) 0.6 k/uL (1.0-4.8); Lymphocytes % (A) 5 %; MCHC 34.2 g/dL (31.0-37.0); MCV 90.5 fL (80.0-100.0); Mean Platelet Volume 8.6; Monocytes # (A) 0.4 k/uL (0-1.0); Monocytes % (A) 4 %; Neutrophils # (A) 9.4 k/uL (1.3-7.7); Neutrophils % (A) 89 %; Platelet Count 201 k/uL (150-450); RBC 4.98 m/uL (4.30-5.90); RDW 12.7 % (11.5-15.5); WBC 10.5 k/uL (3.8-10.6)
[2019-06-18 10:37] LABS: ALT 41 U/L (4-49); AST 99 U/L (17-59); African American GFR (CKD) >90 (>60 ml/min/1.73 sqM); Albumin 3.8 g/dL (3.5-5.0); Alkaline Phosphatase 67 U/L (38-126); Anion Gap 11 mmol/L; Blood Urea Nitrogen 18 mg/dL (9-20); Calcium 8.6 mg/dL (8.4-10.2); Carbon Dioxide 20 mmol/L (22-30); Chloride 101 mmol/L (98-107); Glucose 192 mg/dL (74-99); Non-African American GFR(CKD) >90 (>60 ml/min/1.73 sqM); Potassium 4.3 mmol/L (3.5-5.1); Sodium 132 mmol/L (137-145); Total Protein 6.8 g/dL (6.3-8.2)
--- NOTE | 2019-06-18 10:40 | XR ---
EXAMINATION TYPE: XR chest 2V DATE OF EXAM: 06/18/2019 COMPARISON: 06/18/18 HISTORY: Shortness of breath TECHNIQUE: Frontal and lateral views of the chest are obtained. FINDINGS: Scattered senescent parenchymal changes noted. Basilar infiltrates noted may reflect [id number] pneumonia. Correlate clinically. Heart size is stable. Mediastinal structures are stable and grossly unremarkable. No evidence for hilar prominence. Degenerative changes dorsal spine. IMPRESSION: 1. Basilar infiltrates noted may reflect [id number] pneumonia. Correlate clinically.
[2019-06-18] MEDS ORDERED: AZITHROMYCIN 500 MG in SODIUM CHLORIDE 0.9% 250 ML IVPB STA (11:13)
[2019-06-18] MEDS ORDERED: cefTRIAXone IN SWFI 1,000 MG/10 ML SYRINGE IVP STA (11:13)
[2019-06-18 11:37] LABS: C Reactive Protein 72.7 mg/L (<10.0)
[2019-06-18] MEDS ORDERED: PNEUMONIA PROTOCOL UTILIZED 1 EACH MISC PO PRN (12:47)
[2019-06-18] MEDS ORDERED: MORPHINE SULFATE 4 MG/ML SYRINGE IV PRN (14:01)
[2019-06-18] MEDS ORDERED: ONDANSETRON 4 MG/2 ML VIAL IVP PRN (14:01)
[2019-06-18] MEDS ORDERED: traMADol 50 MG TAB PO PRN (14:01)
[2019-06-18] MEDS ORDERED: NALOXONE 0.4 MG/ML 1 ML VIAL IV PRN (14:01)
--- NOTE | 2019-06-18 14:10 | P.HPIM ---
History of Present Illness H&P Date: 06/18/19 Chief Complaint: shortness of breath Patient is a 59-year-old male past medical history of coronary artery disease with history of four-vessel bypass and repair of tetralogy of flow, dyslipidemia, hypertension, BPH, and osteoarthritis who presented to the emergency department with complaints of cough and shortness of breath. In the ER he underwent extensive evaluation. Temperature of 99.2 and room air pulse ox of 94. Initial blood work showed low lymphocytes of 0.6, sodium 132, carbon dioxide 20, anion gap 11, glucose 192, bilirubin 2, AST 99, and CRP elevated at 72.7. Chest x-ray showed bibasilar infiltrates which may reflect Covid-19 related pneumonia. In the ER he was started on Rocephin and Zithromax. He was admitted for further monitoring. A Procalcitonin and ferritin were sent. Patient seen and examined at bedside. He reports that he started having nasal congestion or runny nose associated with severe coughing approximately one week ago. He continued to progress and he started having some shortness of breath. On 06/12 he was seen by nurse practitioner and had an antibiotic prescribed. On the morning of 06/15 he had a fever the 102.6 despite taking his antibiotic. He reports that he has had worsening shortness of breath especially on exertion, a dry hacking cough that is on relieved, increased fatigue, he was unable to sleep at all last night secondary to his cough. He reports intermittent fevers at home and the highest being 102.6 but typically around 100.1. He denies any muscle aches or cramping, no loss of taste or smell, no nausea, no vomiting, no diarrhea, no chest discomfort. He denies any contact with Covid positive patients, he does not have any recent travel or long car rides. He does report that he has continued to work and that many of his coworkers are not following social distancing practices. He denies any other sick contacts at home. He follows with Dr. Cary of cardiology has been seeing him regularly. Dr. Linda as his primary care physician. He denies any recent changes in medications. Review of Systems Pertinent positives and negatives as discussed in HPI, a complete review of systems was performed and all other systems are negative. Past Medical History Past Medical History: Coronary Artery Disease (CAD), Hyperlipidemia, Hypertension, Osteoarthritis (OA), Prostate Disorder Additional Past Medical History / Comment(s): Pulmonary stenosis with pulmonic valve replacement, VSD-closed spontaneously, BPH, arthritis cervical and bilateral knees, cervical calcium deposits, numbness R arm at times r/t cervical problems, gout. History of Any Multi-Drug Resistant Organisms: None Reported Past Surgical History: Cardiac Valve Replacement, Heart Catheterization Additional Past Surgical History / Comment(s): Other surgical hx: Median sternotomy and resection of RV sub-infundibular stenosis, cardiac caths x4, HEART SURGERY FOR TETRALOGY OF FALLOT (AGE 11), L hand fx with surgical repair, vasectomy R TKA Past Anesthesia/Blood Transfusion Reactions: No Reported Reaction Additional Past Anesthesia/Blood Transfusion Reaction / Comment(s): Pt received blood with surgery in past without reaction. Past Psychological History: Anxiety Smoking Status: Never smoker Past Alcohol Use History: Occasional Past Drug Use History: None Reported Additional History: Lives with his , no assistive devices, works at a nursery - Past Family History Mother Family Medical History: Cancer, Coronary Artery Disease (CAD), Myocardial Infarction ([place]), Renal Disease Additional Family Medical History / Comment(s): Mother had multiple myeloma. She of renal failure. She had a NM and CABG in her early 60's. She had alot of CAD in her family. Father Family Medical History: Coronary Artery Disease (CAD), Myocardial Infarction ([place]) Additional Family Medical History / Comment(s): Father had his first NM in his mid 60's and of a NM at the age of 82yrs. He had alot of CAD in his famil y. Medications and Allergies Home Medications Medication Instructions Recorded Confirmed Type Allopurinol [Zyloprim] 100 mg PO BID 12/07/15 06/18/19 History Carvedilol [Coreg*] 12.5 mg PO BID-W/MEALS #60 tab 01/03/16 06/18/19 Rx amLODIPine BESYLATE/BENAZEPRIL 1 tab PO DAILY 02/25/18 06/18/19 History [amLODIPine BESYLATE/BENAZEPRIL 5-20 MG] Aspirin EC [Ecotrin Low Dose] 162 mg PO DAILY 02/28/18 06/18/19 History Atorvastatin [Lipitor] 80 mg PO HS 02/28/18 06/18/19 History Naproxen Sodium [Aleve] 220 mg PO Q8H PRN 06/18/19 06/18/19 History Terazosin [Hytrin] 5 mg PO HS 06/18/19 06/18/19 History Testosterone [Androgel 1% Gel 5 gram TOPICAL Q3D 06/18/19 06/18/19 History Packet] Allergies Allergy/AdvReac Type Severity Reaction Status Date / Time No Known Allergies Allergy Verified 06/18/19 11:35 Physical Exam Osteopathic Statement: *. No significant issues noted on an osteopathic structural exam other than those noted in the History and Physical/Consult. Vitals: Vital Signs Temp Pulse Resp BP Pulse Ox 06/18/19 12:54 96 06/18/19 12:53 75 18 105/65 94 L 06/18/19 11:38 98.5 F 80 18 111/71 95 06/18/19 09:19 99.2 F 82 20 126/78 95 Intake and Output 06/17/19 06/18/19 06/18/19 22:59 06:59 14:59 Other: Weight 111.13 kg General:Ill Appearing, mild distress, appears at stated age, Obese Derm: no unusual rashes/lesions no unusual ecchymoses, warm, dry Head: atraumatic, normocephalic, symmetric Eyes: EOMI, no lid lag, anicteric sclera, pupils equal round reactive to light ENT: Nose and ears atraumatic, no thrush, no pharyngeal erythema Neck: No thyromegaly, no cervical lymphadenopathy, trachea midline, supple Mouth: no lip lesion, mucus membranes dry Cardiovascular: S1S2 reg, no murmur, positive posterior tibial pulse bilateral, no edema, capillary refill less than 2 seconds Lungs: Coarse breath sounds bilateral, no rhonchi, no rales , no accessory muscle use Abdominal: soft, nontender to palpation, no guarding, no appreciable organomegaly, normal bowel sounds Ext: no gross muscle atrophy, muscle strength 5 out of 5 in all 4 extremities grossly, no contractures, Neuro: CN II-XI grossly intact, light touch intact all 4 extremities, finger to nose within normal limits, Psych: Alert, oriented, appropriate affect Results CBC & Chem 7: 06/18/19 10:10 06/18/19 10:10 Labs: Abnormal Lab Results - Last 24 Hours (Table) 0406/18/19 06/18/19 Range/Units 10:10 10:10 10:10 Neutrophils # 9.4 H (1.3-7.7) k/uL Lymphocytes # 0.6 L (1.0-4.8) k/uL Sodium 132 L (137-145) mmol/L Carbon Dioxide 20 L (22-30) mmol/L Glucose 192 H (74-99) mg/dL Total Bilirubin 2.0 H (0.2-1.3) mg/dL AST 99 H (17-59) U/L C-Reactive Protein 72.7 H (<10.0) mg/L Chest x-ray: report reviewed, image reviewed Thrombosis Risk Factor Assmnt - DVT/VTE Prophylaxis DVT/VTE Prophylaxis: Pharmacologic Prophylaxis ordered Assessment and Plan Assessment: Bilateral pneumonia, appears viral, likely COVID 19 -Flu negative, COVID 19 pending -Low lymphocyte count -CRP 72.7 -Procalcitonin pending -D-dimer pending, patient does not have any significant risks associated with possible pulmonary embolism however this will be for prognostic management during Covid 19 pandemic -Follow chest x-ray until clear -Albuterol MDI secondary to possible Covid -Does not currently meet clinical criteria for plaquinil -Continue with Rocephin and Zithromax until bacterial etiology isn't excluded -Sputum culture Acute respiratory failure secondary to increased work of breathing -Supportive care as above Coronary artery disease with history of tetralogy of flow and four-vessel bypass -Resume home Lipitor, Coreg, and aspirin Hypertension, controlled -Continue with Coreg, amlodipine and benazepril -Follow blood pressures Transaminitis, mild and chronic -Improved from baseline -Continue to follow CMP Dyslipidemia -Statin therapy The patient is admitted with an anticipated greater than 2 midnight stay for evaluation of viral pneumonia. Surrogate decision-maker: CODE STATUS: I had an extensive conversation with the patient. He is okay with short-term intubation and CPR, however if no meaningful hope of recovery would not want long-term intubation. DVT prophylaxis: Heparin Discussed with: Patient, nursing, ED attending Anticipated discharge date: 2-[address]: Home A total of 65 minutes was spent on the care of this complex patient more than 50% of the time was spent in counseling and care coordination.
[2019-06-18] MEDS: SODIUM CHLORIDE 0.9% 1,000 ML IV SCH (16:49)
[2019-06-18] MEDS: CARVEDILOL 12.5 MG TAB PO SCH (17:16)
[2019-06-18] MEDS: ALBUTEROL INHALER 60 PUFF/8 GM INHALER (BULK) INHALATION PRN (17:34)
[2019-06-18 19:04] LABS: Ferritin 1137.4 ng/mL (22.0-322.0)
[2019-06-18] MEDS: ALLOPURINOL 100 MG TAB PO SCH (20:34)
[2019-06-18] MEDS: DOXAZOSIN 4 MG TAB PO SCH (20:34)
[2019-06-18] MEDS: ATORVASTATIN 80 MG TAB PO SCH (20:34)
[2019-06-18] MEDS: HEPARIN SODIUM,PORCINE 5,000 UNIT/ML 1 ML VIAL SQ SCH (20:34)
[2019-06-18] MEDS: ACETAMINOPHEN TAB 325 MG TAB PO PRN (20:34)
[2019-06-18] MEDS: ALBUTEROL HFA INHALER INHALATION PRN (21:38)
[2019-06-19] MEDS: LISINOPRIL 20 MG TAB PO SCH (07:45)
[2019-06-19] MEDS: CARVEDILOL 12.5 MG TAB PO SCH ×2 (07:45→17:03)
[2019-06-19] MEDS: ALLOPURINOL 100 MG TAB PO SCH ×2 (07:45→19:56)
[2019-06-19] MEDS: amLODIPine 5 MG TAB PO SCH (07:45)
[2019-06-19] MEDS: HEPARIN SODIUM,PORCINE 5,000 UNIT/ML 1 ML VIAL SQ SCH ×2 (07:45→19:56)
[2019-06-19] MEDS: ASPIRIN 81 MG PO SCH (07:45)
--- NOTE | 2019-06-19 08:21 | XR ---
EXAMINATION TYPE: XR chest 1V DATE OF EXAM: 06/19/2019 COMPARISON: 06/18/2019 HISTORY: Shortness of breath and cough. Follow-up for pneumonia. TECHNIQUE: Single frontal view of the chest is obtained. FINDINGS: Unchanged appearing peripherally oriented dependent lower lung patchy opacities. Post CABG changes of the chest with mildly enlarged cardiomediastinal silhouette. No acute osseous process. Po ssible trace left pleural effusion. Right costophrenic angle is well demarcated. No new pneumothorax seen. IMPRESSION: Stable peripherally oriented patchy bibasilar opacities and possible trace left pleural effusion. [id number]-repidms pneumonia/lung damage to be considered in this patient or more typical pneu monias.
[2019-06-19] MEDS ORDERED: NON FORMULARY DRUG (Amlodipine Besylate/Benazepril [Amlodipine Besylate/Benazepril 5-20 Mg PO SCH (09:00)
[2019-06-19 09:03] LABS: Basophils % (A) 0 %; Eosinophils % (A) 0 %; HGB 15.2 gm/dL (13.0-17.5); Lymphocytes # (A) 0.7 k/uL (1.0-4.8); Lymphocytes % (A) 10 %; MCH 31.2 pg (25.0-35.0); MCHC 33.9 g/dL (31.0-37.0); MCV 92.3 fL (80.0-100.0); Mean Platelet Volume 8.5; Monocytes # (A) 0.4 k/uL (0-1.0); Monocytes % (A) 5 %; Neutrophils # (A) 5.8 k/uL (1.3-7.7); Neutrophils % (A) 82 %; Platelet Count 216 k/uL (150-450); RBC 4.88 m/uL (4.30-5.90); RDW 12.8 % (11.5-15.5); WBC 7.1 k/uL (3.8-10.6)
[2019-06-19 09:11] LABS: ALT 34 U/L (4-49); AST 94 U/L (17-59); African American GFR (CKD) >90 (>60 ml/min/1.73 sqM); Albumin 3.3 g/dL (3.5-5.0); Alkaline Phosphatase 61 U/L (38-126); Anion Gap 8 mmol/L; Blood Urea Nitrogen 18 mg/dL (9-20); Calcium 8.4 mg/dL (8.4-10.2); Carbon Dioxide 27 mmol/L (22-30); Chloride 100 mmol/L (98-107); Glucose 170 mg/dL (74-99); LDH 1019 U/L (313-618); Non-African American GFR(CKD) >90 (>60 ml/min/1.73 sqM); Potassium 4.5 mmol/L (3.5-5.1); Sodium 135 mmol/L (137-145); Total Bilirubin 1.8 mg/dL (0.2-1.3); Total Protein 6.2 g/dL (6.3-8.2)
[2019-06-19] MEDS: SODIUM CHLORIDE 0.9% 1,000 ML IV SCH (09:27)
[2019-06-19] MEDS: ALBUTEROL HFA INHALER INHALATION PRN ×2 (09:45→11:44)
[2019-06-19] MEDS ORDERED: AZITHROMYCIN 500 MG in SODIUM CHLORIDE 0.9% 250 ML IVPB SCH (11:00)
[2019-06-19] MEDS: ALBUTEROL INHALER 60 PUFF/8 GM INHALER (BULK) INHALATION PRN ×2 (16:16→20:53)
--- NOTE | 2019-06-19 16:48 | P.PN ---
Subjective Progress Note Date: 06/19/19 Principal diagnosis: shortness of breath Patient is a 59-year-old male past medical history of coronary artery disease with history of four-vessel bypass and repair of tetralogy of flow, dyslipidemia, hypertension, BPH, and osteoarthritis who presented to the emergency department with complaints of cough and shortness of breath. In the ER he underwent extensive evaluation. Temperature of 99.2 and room air pulse ox of 94. Initial blood work showed low lymphocytes of 0.6, sodium 132, carbon dioxide 20, anion gap 11, glucose 192, bilirubin 2, AST 99, and CRP elevated at 72.7. Chest x-ray showed bibasilar infiltrates which may reflect Covid-19 related pneumonia. In the ER he was started on Rocephin and Zithromax. He was admitted for further monitoring. A Procalcitonin was normal and ferritin was elevated. Chest x-ray continued to show patchy basilar opacities. His hypoxia worsened. Patient seen and examined at bedside. Still with SOB some better than yesterday, cough is getting better, no nausea, vomiting, or diarrhea. Slight headache. Objective - Vital Signs Vital signs: Vital Signs Temp 99.1 F 06/19/19 15:09 Pulse 80 06/19/19 15:09 Resp 26 H 06/19/19 15:48 BP 143/85 06/19/19 15:09 Pulse Ox 94 L 06/19/19 15:09 Intake & Output 06/18/19 06/19/19 06/19/19 18:59 06:59 18:59 Intake Total 100 780 Balance 100 780 Weight 111.13 kg Intake: Intake, IV Titration 300 Amount Azithromycin 500 mg In 250 Sodium Chloride 0.9% 250 ml @ 250 mls/hr IVPB DAILY@1100 BRENDA Rx#: [id number] cefTRIAXone 1 gm In 50 Sodium Chloride 0.9% 50 ml @ 100 mls/hr IVPB Q24HR BRENDA Rx#:[id number] Oral 100 480 Other: # Voids 1 - Exam General: Ill-appearing, no distress, appears at stated age Derm: warm, dry Head: atraumatic, normocephalic, symmetric Eyes: EOMI, no lid lag, anicteric sclera Mouth: no lip lesion, mucus membranes moist Cardiovascular: S1S2 reg, no murmur, positive posterior tibial pulse bilateral, Lungs: Coarse breath sounds bilateral, 3 word conversational dyspnea , no accessory muscle use Abdominal: soft, nontender to palpation, no guarding, no appreciable organomegaly Ext: no gross muscle atrophy, no edema, no contractures Neuro: CN II-XI grossly intact, no focal neuro deficits Psych: Alert, oriented, appropriate affect - Labs CBC & Chem 7: 06/19/19 08:34 06/19/19 08:34 Labs: Abnormal Lab Results - Last 24 Hours (Table) 06/18/19 06/19/19 06/19/19 Range/Units 10:10 08:34 08:34 Lymphocytes # 0.7 L (1.0-4.8) k/uL Sodium 135 L (137-145) mmol/L Glucose 170 H (74-99) mg/dL Ferritin 1137.4 H (22.0-322.0) ng/mL Total Bilirubin 1.8 H (0.2-1.3) mg/dL AST 94 H (17-59) U/L Lactate Dehydrogenase 1019 H (313-618) U/L Total Protein 6.2 L (6.3-8.2) g/dL Albumin 3.3 L (3.5-5.0) g/dL Microbiology - Last 24 Hours (Table) 06/18/19 11:25 Blood Culture - Preliminary Blood No Growth after 24 hours Assessment and Plan Assessment: Bilateral pneumonia, appears viral, likely COVID 19 -Flu negative, COVID 19 pending -Low lymphocyte count -CRP 72.7 , LDH elevated -Procalcitonin negative -D-dimer negative -Follow chest x-ray until clear -Albuterol MDI secondary to possible Covid -Check QT and start Plaquenil of QT less than 460, will consult cardiology if need to start Plaquenil -Continue with Rocephin and Zithromax until bacterial etiology is excluded -Sputum culture Acute respiratory failure secondary to increased work of breathing -Supportive care as above Coronary artery disease with history of tetralogy repair and four-vessel bypass -Lipitor, Coreg, and aspirin Hypertension, controlled -Continue with Coreg, amlodipine and benazepril -Follow blood pressures Transaminitis, mild and chronic -Improved from baseline -Continue to follow CMP Dyslipidemia -Statin therapy DVT prophylaxis: Heparin Discussed with: Patient, nursing Anticipated discharge date: 2-[address]: Home A total of 35 minutes was spent on the care of this complex patient more than 50% of the time was spent in counseling and care coordination.
[2019-06-19 17:28] LABS: Ferritin 1367.2 ng/mL (22.0-322.0)
[2019-06-19] MEDS: HYDROXYCHLOROQUINE SULFATE 200 MG TAB PO SCH (19:55)
[2019-06-19] MEDS: ATORVASTATIN 80 MG TAB PO SCH (19:56)
[2019-06-19] MEDS: DOXAZOSIN 4 MG TAB PO SCH (19:56)
[2019-06-20] MEDS: SODIUM CHLORIDE 0.9% 1,000 ML IV SCH (02:34)
[2019-06-20] MEDS: HEPARIN SODIUM,PORCINE 5,000 UNIT/ML 1 ML VIAL SQ SCH ×2 (08:01→21:06)
[2019-06-20] MEDS: ASPIRIN 81 MG PO SCH (08:01)
[2019-06-20] MEDS: ALLOPURINOL 100 MG TAB PO SCH ×2 (08:02→21:06)
[2019-06-20] MEDS: HYDROXYCHLOROQUINE SULFATE 200 MG TAB PO SCH ×2 (08:02→21:06)
[2019-06-20] MEDS: CARVEDILOL 12.5 MG TAB PO SCH ×2 (08:02→17:16)
[2019-06-20] MEDS: LISINOPRIL 20 MG TAB PO SCH (08:02)
[2019-06-20] MEDS: amLODIPine 5 MG TAB PO SCH (08:02)
[2019-06-20 08:37] LABS: Basophils % (A) 0 %; Eosinophils % (A) 1 %; HCT 43.3 % (39.0-53.0); HGB 14.8 gm/dL (13.0-17.5); Lymphocytes # (A) 0.9 k/uL (1.0-4.8); Lymphocytes % (A) 17 %; MCHC 34.2 g/dL (31.0-37.0); MCV 90.6 fL (80.0-100.0); Mean Platelet Volume 8.6; Monocytes # (A) 0.4 k/uL (0-1.0); Monocytes % (A) 8 %; Neutrophils % (A) 71 %; Platelet Count 247 k/uL (150-450); RBC 4.78 m/uL (4.30-5.90); RDW 12.9 % (11.5-15.5); WBC 5.7 k/uL (3.8-10.6)
[2019-06-20 08:49] LABS: C Reactive Protein 63.4 mg/L (<10.0); Magnesium 2.3 mg/dL (1.6-2.3)
[2019-06-20] MEDS ORDERED: AZITHROMYCIN 500 MG TAB PO SCH (09:00)
--- NOTE | 2019-06-20 09:13 | P.CRDCN ---
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 He follows in the office with Dr. Willard. We have been asked to see in consultation for prolong QT. He presented to the hospital with fever, cough and shortness of breath. He is currently COVID-19 pending and has been started on plaquenil. Baseline EKG reveals sinus mechanism with right bundle branch block and QT interval of 463. He is seen and examined sitting up in bed in no acute distress. He states his shortness of breath is improving however he is still coughing. He denies chest pain, dizziness, syncope or palpitations. Chest xray on admission reveals basilar infiltrates suggestive of COVID related pneumonia. Repeat yesterday reveals stable periphery with patchy basilar opacities and possible trace left pleural effusion. Laboratory data reviewed, WBC 5.7, hgb 14.8, plt 247, sodium 135, potassium 4.5, creatinine 0.85, ferritin 1367, total billirubin 1.8, AST 94, LDH 1019, troponin negative and CRP 72.7. Current daily cardiac medications include coreg 12.5 mg BID, amlodipine/benazapril 5/20 mg daily, aspirin 81 mg daily, atorvastatin 80 m gdaily and terazosin 5 mg daily. Most recent echocardiogram obtained in the office revealed preserved LV systolic function with EF 55%, mildly dilated left atrium, mild MR and mild pulmonic regurgitation. REVIEW OF SYSTEMS At the time of my exam: CONSTITUTIONAL: Denies fever or chills. CARDIOVASCULAR: Denies chest pain, shortness of breath, orthopnea, PND or palpitations. RESPIRATORY: Complains of cough. GASTROINTESTINAL: Denies abdominal pain, diarrhea, constipation, nausea or vomiting. MUSCULOSKELETAL: Denies myalgias. NEUROLOGIC: Denies numbness, tingling or weakness. ENDOCRINE: Denies fatigue, weight change, polydipsia or polyurina. GENITOURINARY: Denies burning, hematuria or urgency with micturation. HEMATOLOGIC: Denies history of anemia or bleeding. PHYSICAL EXAMINATION Blood pressure 113/74 heart rate 79 afebrile and maintaining oxygen saturation on afebrile. He has been running low grade temperature intermittently. CONSTITUTIONAL: No apparent distress. HEENT: Head is normocephalic. Pupils are equal, round. Sclerae anicteric. Mucous membranes of the mouth are moist. No JVD. No carotid bruit. CHEST EXAMINATION: Course scattered rhonchi throughout, worse at the bases. No rales or wheezes. No chest wall tenderness is noted on palpation or with deep breathing. HEART EXAMINATION: Regular rate and rhythm. S1, S2 heard. No murmurs, gallops or rub. Distant heart sounds. ABDOMEN: Soft, nontender. Positive bowel sounds. EXTREMITIES: 2+ peripheral pulses, no lower extremity edema and no calf tenderness. NEUROLOGIC EXAMINATION: Patient is awake, alert and oriented x3. ASSESSMENT Cough, shortness of breath and fever, COVID 19 pending Coronary artery disease s/p bypass grafting History of tetralogy of fallot s/p right outflow tract widening Hypertension Dyslipidemia PLAN Initial EKG prior to initiation of plaquenil revealed QT of 463. If this medication is to be continued he will require continuous telemetry monitoring and daily EKG's. If there is worsening of his QT interval or he has evidence of arrhythmia it should be discontinued immediately. Thank you kindly for this consultation. Nurse Practitioner note has been reviewed, I agree with a documented findings and plan of care. Patient was seen and examined. Past Medical History Past Medical History: Coronary Artery Disease (CAD), Hyperlipidemia, Hypertension, Osteoarthritis (OA), Prostate Disorder Additional Past Medical History / Comment(s): Pulmonary stenosis with pulmonic valve replacement, VSD-closed spontaneously, BPH, arthritis cervical and bilateral knees, cervical calcium deposits, numbness R arm at times r/t cervical problems, gout. History of Any Multi-Drug Resistant Organisms: None Reported Past Surgical History: Cardiac Valve Replacement, Heart Catheterization Additional Past Surgical History / Comment(s): Other surgical hx: Median sternotomy and resection of RV sub-infundibular stenosis, cardiac caths x4, HEART SURGERY FOR TETRALOGY OF FALLOT (AGE 11), L hand fx with surgical repair, vasectomy R TKA Past Anesthesia/Blood Transfusion Reactions: No Reported Reaction Additional Past Anesthesia/Blood Transfusion Reaction / Comment(s): Pt received blood with surgery in past without reaction. Past Psychological History: Anxiety Additional Psychological History / Comment(s): Pt resides with spouse. He is independent. He owns a business. Smoking Status: Never smoker Past Alcohol Use History: Occasional Past Drug Use History: None Reported - Past Family History Mother Family Medical History: Cancer, Coronary Artery Disease (CAD), Myocardial Infarction ([place]), Renal Disease Additional Family Medical History / Comment(s): Mother had multiple myeloma. She of renal failure. She had a [place] and CABG in her early 60's. She had alot of CAD in her family. Father Family Medical History: Coronary Artery Disease (CAD), Myocardial Infarction ([place]) Additional Family Medical History / Comment(s): Father had his first IL in his mid 60's and of a IL at the age of 82yrs. He had alot of CAD in his family. Medications and Allergies Home Medications Medication Instructions Recorded Confirmed Type Allopurinol [Zyloprim] 100 mg PO BID 12/07/15 06/18/19 History Carvedilol [Coreg*] 12.5 mg PO BID-W/MEALS #60 tab 01/03/16 06/18/19 Rx amLODIPine BESYLATE/BENAZEPRIL 1 tab PO DAILY 02/25/18 06/18/19 History [amLODIPine BESYLATE/BENAZEPRIL 5-20 MG] Aspirin EC [Ecotrin Low Dose] 162 mg PO DAILY 02/28/18 06/18/19 History Atorvastatin [Lipitor] 80 mg PO HS 02/28/18 06/18/19 History Naproxen Sodium [Aleve] 220 mg PO Q8H PRN 06/18/19 06/18/19 History Terazosin [Hytrin] 5 mg PO HS 06/18/19 06/18/19 History Testosterone [Androgel 1% Gel 5 gram TOPICAL Q3D 06/18/19 06/18/19 History Packet] Allergies Allergy/AdvReac Type Severity Reaction Status Date / Time No Known Allergies Allergy Verified 06/18/19 11:35 Physical Exam Vitals: Vital Signs Temp Pulse Resp BP Pulse Ox 06/20/19 08:02 98.3 F 79 18 113/74 94 L 06/20/19 05:01 78 93 L 06/20/19 03:12 99.2 F 76 17 112/68 91 L 06/20/19 02:09 82 95 06/20/19 00:46 99.7 F H 06/19/19 23:36 100.1 F H 80 17 109/68 90 L 06/19/19 19:30 98.8 F 84 14 121/73 91 L 06/19/19 15:48 26 H 06/19/19 15:09 99.1 F 80 27 H 143/85 94 L 06/19/19 11:00 97.8 F 73 26 H 112/65 96 Intake and Output 06/19/19 06/20/19 06/20/19 22:59 06:59 14:59 Intake Total 50 Balance 50 Intake: Oral 50 Results 06/19/19 08:34 06/19/19 08:34 Cardiac Enzymes 06/19/19 Range/Units 08:34 AST 94 H (17-59) U/L Lactate Dehydrogenase 1019 H (313-618) U/L CBC 06/19/19 Range/Units 08:34 WBC 7.1 (3.8-10.6) k/uL RBC 4.88 (4.30-5.90) m/uL Hgb 15.2 (13.0-17.5) gm/dL Hct 45.0 (39.0-53.0) % Plt Count 216 (150-450) k/uL Comprehensive Metabolic Panel 06/19/19 Range/Units 08:34 Sodium 135 L (137-145) mmol/L Potassium 4.5 (3.5-5.1) mmol/L Chloride 100 (98-107) mmol/L Carbon Dioxide 27 (22-30) mmol/L BUN 18 (9-20) mg/dL Creatinine 0.85 (0.66-1.25) mg/dL Glucose 170 H (74-99) mg/dL Calcium 8.4 (8.4-10.2) mg/dL AST 94 H (17-59) U/L ALT 34 (4-49) U/L Alkaline Phosphatase 61 (38-126) U/L Total Protein 6.2 L (6.3-8.2) g/dL Albumin 3.3 L (3.5-5.0) g/dL Current Medications Generic Name Dose Route Start Last Admin Trade Name Freq PRN Reason Stop Dose Admin Acetaminophen 650 mg 06/18/19 14:01 06/18/19 20:34 Tylenol Tab PO 650 mg Q6HR PRN Administration Mild Pain or Fever > 100.5 Albuterol Sulfate 2 puff 06/18/19 18:21 06/19/19 11:44 Ventolin Hfa Inhaler INHALATION 2 puff RT-QID PRN Administration Shortness Of Breath Or Wheezing Allopurinol 100 mg 06/18/19 21:00 06/20/19 08:02 Zyloprim PO 100 mg BID BRENDA Administration Amlodipine Besylate 5 mg 06/19/19 09:00 06/20/19 08:02 Norvasc PO 5 mg DAILY BRENDA Administration Aspirin 162 mg 06/19/19 09:00 06/20/19 08:01 Aspirin PO 162 mg DAILY BRENDA Administration Atorvastatin Calcium 80 mg 06/18/19 21:00 06/19/19 19:56 Lipitor PO 80 mg HS BRENDA Administration Carvedilol 12.5 mg 06/18/19 17:30 06/20/19 08:02 Coreg PO 12.5 mg BID-W/MEALS BRENDA Administration Doxazosin Mesylate 4 mg 06/18/19 21:00 06/19/19 19:56 Cardura PO 4 mg HS BRENDA Administration Heparin Sodium (Porcine) 5,000 unit 06/18/19 21:00 06/20/19 08:01 Heparin SQ 5,000 unit Q12HR BRENDA Administration Hydroxychloroquine Sulfate 400 mg 06/19/19 19:00 06/20/19 08:02 Plaquenil PO 06/20/19 09:01 400 mg BID BRENDA Administration Hydroxychloroquine Sulfate 200 mg 06/20/19 21:00 Plaquenil PO 06/24/19 09:01 BID BRENDA Ceftriaxone Sodium 1 gm/ 50 mls @ 100 mls/hr 06/19/19 09:00 06/20/19 08:02 Sodium Chloride IVPB 06/22/19 09:01 100 mls/hr Q24HR BRENDA Administration Sodium Chloride 1,000 mls @ 50 mls/hr 06/18/19 14:15 06/20/19 02:34 Saline 0.9% IV Not Given .Q20H BRENDA Lisinopril 20 mg 06/19/19 09:00 06/20/19 08:02 Zestril PO 20 mg DAILY BRENDA Administration Miscellaneous Information 1 each 06/18/19 12:47 Pneumonia Protocol Utilized PO ONCE PRN Per Protocol Morphine Sulfate 4 mg 06/18/19 14:01 Morphine Sulfate (Inj) IV Q4HR PRN Severe Pain Naloxone HCl 0.2 mg 06/18/19 14:01 Narcan IV Q2M PRN Opioid Reversal Ondansetron HCl 4 mg 06/18/19 14:01 Zofran IVP Q8HR PRN Nausea And Vomiting Tramadol HCl 50 mg 06/18/19 14:01 Ultram PO Q6H PRN Moderate Pain Intake and Output 06/19/19 06/20/19 06/20/19 22:59 06:59 14:59 Intake Total 50 Balance 50 Intake: Oral 50 06/20/19 07:38 06/19/19 08:34
[2019-06-20 10:39] LABS: ALT 33 U/L (4-49); AST 97 U/L (17-59); African American GFR (CKD) >90 (>60 ml/min/1.73 sqM); Albumin 3.1 g/dL (3.5-5.0); Alkaline Phosphatase 57 U/L (38-126); Anion Gap 9 mmol/L; Blood Urea Nitrogen 16 mg/dL (9-20); Carbon Dioxide 26 mmol/L (22-30); Chloride 100 mmol/L (98-107); Glucose 131 mg/dL (74-99); Non-African American GFR(CKD) >90 (>60 ml/min/1.73 sqM); Potassium 4.1 mmol/L (3.5-5.1); Sodium 135 mmol/L (137-145); Total Bilirubin 1.5 mg/dL (0.2-1.3); Total Protein 6.2 g/dL (6.3-8.2)
[2019-06-20 16:08] LABS: Ferritin 1482.9 ng/mL (22.0-322.0)
[2019-06-20] MEDS: ALBUTEROL HFA INHALER INHALATION PRN ×2 (16:14→19:38)
--- NOTE | 2019-06-20 17:44 | P.PN ---
Subjective Progress Note Date: 06/20/19 (delayed charting seen at 1030) Principal diagnosis: shortness of breath Patient is a 59-year-old male past medical history of coronary artery disease with history of four-vessel bypass and repair of tetralogy of flow, dyslipidemia, hypertension, BPH, and osteoarthritis who presented to the emergency department with complaints of cough and shortness of breath. In the ER he underwent extensive evaluation. Temperature of 99.2 and room air pulse ox of 94. Initial blood work showed low lymphocytes of 0.6, sodium 132, carbon dioxide 20, anion gap 11, glucose 192, bilirubin 2, AST 99, and CRP elevated at 72.7. Chest x-ray showed bibasilar infiltrates which may reflect Covid-19 related pneumonia. In the ER he was started on Rocephin and Zithromax. He was admitted for further monitoring. A Procalcitonin was normal and ferritin was elevated. Chest x-ray continued to show patchy basilar opacities. His hypoxia worsened. His ferritin was increasing, LDH slightly increased, CRP improving on 06/19. Patient seen and examined at bedside. Reports that he is feeling better than yesterday. Still having shortness breath, cough, no nausea no vomiting, no diarrhea. Headache is better today. Objective - Vital Signs Vital signs: Vital Signs Temp 99.5 F 06/20/19 15:09 Pulse 80 06/20/19 15:09 Resp 18 06/20/19 15:09 BP 126/71 06/20/19 15:09 Pulse Ox 94 L 06/20/19 15:09 Intake & Output 06/19/19 06/20/19 06/20/19 18:59 06:59 18:59 Intake Total 780 50 464 Balance 780 50 464 Intake: Intake, IV Titration 300 50 Amount Azithromycin 500 mg In 250 Sodium Chloride 0.9% 250 ml @ 250 mls/hr IVPB DAILY@1100 [facility] Rx#: [id number] cefTRIAXone 1 gm In 50 50 Sodium Chloride 0.9% 50 ml @ 100 mls/hr IVPB Q24HR [facility] Rx#:[id number] Oral 480 50 414 - Exam General: Ill-appearing, no distress, appears at stated age Derm: warm, dry Head: atraumatic, normocephalic, symmetric Eyes: EOMI, no lid lag, anicteric sclera Mouth: no lip lesion, mucus membranes dry Cardiovascular: S1S2 reg, no murmur, positive posterior tibial pulse bilateral, Lungs: Coarse breath sounds bilateral, 3 word conversational dyspnea , no accessory muscle use Abdominal: soft, nontender to palpation, no guarding, no appreciable organomegaly Ext: no gross muscle atrophy, no edema, no contractures Neuro: CN II-XI grossly intact, no focal neuro deficits Psych: Alert, oriented, appropriate affect - Labs CBC & Chem 7: 06/20/19 07:38 06/20/19 07:38 Labs: Abnormal Lab Results - Last 24 Hours (Table) 06/20/19 06/20/19 06/20/19 Range/Units 07:38 07:38 07:38 Lymphocytes # 0.9 L (1.0-4.8) k/uL Sodium 135 L (137-145) mmol/L Glucose 131 H (74-99) mg/dL Calcium 8.0 L (8.4-10.2) mg/dL Ferritin 1482.9 H (22.0-322.0) ng/mL Total Bilirubin 1.5 H (0.2-1.3) mg/dL AST 97 H (17-59) U/L Lactate Dehydrogenase 1146 H (313-618) U/L Creatine Kinase 214 H (55-170) U/L C-Reactive Protein 63.4 H (<10.0) mg/L Total Protein 6.2 L (6.3-8.2) g/dL Albumin 3.1 L (3.5-5.0) g/dL Microbiology - Last 24 Hours (Table) 06/18/19 11:25 Blood Culture - Preliminary Blood No Growth after 48 hours Assessment and Plan Assessment: Bilateral pneumonia, appears viral, likely COVID 19 -Flu negative, COVID 19 pending -Low lymphocyte count -Follow CRP, LDH, ferritin, d-dimer every 48 hours -Follow chest x-ray until clear -Albuterol MDI secondary to possible Covid -Continue with Plaquenil, telemetry monitoring, cardiology is following -Optimization of potassium and magnesium -Continue with Rocephin , Zithromax switched to doxycycline with the use of Plaquenil. -Patient has a dry cough and therefore sputum culture not obtained Acute respiratory failure secondary to increased work of breathing -Supportive care as above Coronary artery disease with history of tetralogy repair and four-vessel bypass -Lipitor, Coreg, and aspirin Hypertension, controlled -Continue with Coreg, amlodipine and benazepril -Follow blood pressures Transaminitis, mild and chronic -Improved from baseline -Continue to follow CMP Dyslipidemia -Statin therapy DVT prophylaxis: Heparin Discussed with: Patient, nursing Anticipated discharge date: 1-[address]: Home A total of 35 minutes was spent on the care of this complex patient more than 50% of the time was spent in counseling and care coordination.
[2019-06-20] MEDS: DOXAZOSIN 4 MG TAB PO SCH (21:06)
[2019-06-20] MEDS: ATORVASTATIN 80 MG TAB PO SCH (21:06)
[2019-06-21] MEDS: SODIUM CHLORIDE 0.9% 1,000 ML IV SCH ×2 (07:33→23:25)
[2019-06-21] MEDS: HEPARIN SODIUM,PORCINE 5,000 UNIT/ML 1 ML VIAL SQ SCH ×2 (07:42→21:48)
[2019-06-21] MEDS: HYDROXYCHLOROQUINE SULFATE 200 MG TAB PO SCH ×2 (07:43→21:49)
[2019-06-21] MEDS: amLODIPine 5 MG TAB PO SCH (07:43)
[2019-06-21] MEDS: CARVEDILOL 12.5 MG TAB PO SCH ×2 (07:43→18:00)
[2019-06-21] MEDS: ALLOPURINOL 100 MG TAB PO SCH ×2 (07:44→21:48)
[2019-06-21] MEDS: ASPIRIN 81 MG PO SCH (07:44)
[2019-06-21] MEDS: LISINOPRIL 20 MG TAB PO SCH (07:45)
[2019-06-21 07:57] LABS: Basophils % (A) 1 %; Eosinophils # (A) 0.1 k/uL (0-0.7); Eosinophils % (A) 1 %; HCT 41.9 % (39.0-53.0); HGB 14.5 gm/dL (13.0-17.5); Lymphocytes # (A) 0.8 k/uL (1.0-4.8); Lymphocytes % (A) 12 %; MCH 31.4 pg (25.0-35.0); MCHC 34.6 g/dL (31.0-37.0); MCV 90.8 fL (80.0-100.0); Mean Platelet Volume 8.3; Monocytes # (A) 0.7 k/uL (0-1.0); Monocytes % (A) 10 %; Neutrophils # (A) 5.3 k/uL (1.3-7.7); Neutrophils % (A) 75 %; Platelet Count 248 k/uL (150-450); RBC 4.62 m/uL (4.30-5.90); RDW 12.6 % (11.5-15.5)
[2019-06-21 08:05] LABS: ALT 31 U/L (4-49); AST 96 U/L (17-59); African American GFR (CKD) >90 (>60 ml/min/1.73 sqM); Alkaline Phosphatase 56 U/L (38-126); Anion Gap 8 mmol/L; Blood Urea Nitrogen 13 mg/dL (9-20); Calcium 7.7 mg/dL (8.4-10.2); Carbon Dioxide 24 mmol/L (22-30); Chloride 100 mmol/L (98-107); Glucose 118 mg/dL (74-99); Non-African American GFR(CKD) >90 (>60 ml/min/1.73 sqM); Potassium 3.9 mmol/L (3.5-5.1); Sodium 132 mmol/L (137-145); Total Bilirubin 1.8 mg/dL (0.2-1.3)
[2019-06-21] MEDS: ALBUTEROL HFA INHALER INHALATION PRN ×4 (09:00→20:30)
--- NOTE | 2019-06-21 12:54 | P.PN ---
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 He follows in the office with Dr. Willard. Patient's chart was reviewed with the nurse. There has been no new cardiac concerns. The patient has not had chest pain or worsening shortness of breath. There is no palpitations or dizziness. Telemetry tracings reveal persistent sinus mechanism with stable QT. Daily EKG reviewed. No changes. QT remained stable. ASSESSMENT Cough, shortness of breath and fever, COVID 19 pending Coronary artery disease s/p bypass grafting History of tetralogy of fallot s/p right outflow tract widening Hypertension Dyslipidemia PLAN QT interval has remained stable. Continue to recommend daily EKGs and ongoing telemetry monitoring. Nurse Practitioner note has been reviewed, I agree with a documented findings and plan of care. Patient was seen and examined. Objective - Vital Signs Vital signs: Vital Signs Temp 98.5 F 06/21/19 11:00 Pulse 74 06/21/19 11:00 Resp 18 06/21/19 11:00 BP 131/65 06/21/19 11:00 Pulse Ox 96 06/21/19 11:00 Intake & Output 06/20/19 06/21/19 06/21/19 18:59 06:59 18:59 Intake Total 582 296 Balance 582 296 Intake: Intake, IV Titration 50 Amount cefTRIAXone 1 gm In 50 Sodium Chloride 0.9% 50 ml @ 100 mls/hr IVPB Q24HR [facility] Rx#:[id number] Oral 532 296 Other: Voiding Method Toilet # Voids 0 - Labs CBC & Chem 7: 06/21/19 07:17 06/21/19 07:17 Labs: Abnormal Lab Results - Last 24 Hours (Table) 06/18/19 06/20/19 06/21/19 Range/Units 10:10 07:38 07:17 Lymphocytes # 0.8 L (1.0-4.8) k/uL Sodium (137-145) mmol/L Glucose (74-99) mg/dL Calcium (8.4-10.2) mg/dL Ferritin 1482.9 H (22.0-322.0) ng/mL Total Bilirubin (0.2-1.3) mg/dL AST (17-59) U/L Total Protein (6.3-8.2) g/dL Albumin (3.5-5.0) g/dL Coronavirus (PCR) DETECTED A (Not Detectd) 06/21/19 Range/Units 07:17 Lymphocytes # (1.0-4.8) k/uL Sodium 132 L (137-145) mmol/L Glucose 118 H (74-99) mg/dL Calcium 7.7 L (8.4-10.2) mg/dL Ferritin (22.0-322.0) ng/mL Total Bilirubin 1.8 H (0.2-1.3) mg/dL AST 96 H (17-59) U/L Total Protein 6.0 L (6.3-8.2) g/dL Albumin 3.0 L (3.5-5.0) g/dL Coronavirus (PCR) (Not Detectd) Microbiology - Last 24 Hours (Table) 06/18/19 11:25 Blood Culture - Preliminary Blood No Growth after 48 hours
[2019-06-21] MEDS: guaiFENesin-Coden 100-10MG/5ML 10 ML CUP PO PRN ×2 (13:24→21:55)
[2019-06-21] MEDS: ACETAMINOPHEN TAB 325 MG TAB PO PRN (15:00)
--- NOTE | 2019-06-21 18:16 | P.PN ---
Subjective Progress Note Date: 06/21/19 Principal diagnosis: shortness of breath Patient is a 59-year-old male past medical history of coronary artery disease with history of four-vessel bypass and repair of tetralogy of flow, dyslipidemia, hypertension, BPH, and osteoarthritis who presented to the emergency department with complaints of cough and shortness of breath. In the ER he underwent extensive evaluation. Temperature of 99.2 and room air pulse ox of 94. Initial blood work showed low lymphocytes of 0.6, sodium 132, carbon dioxide 20, anion gap 11, glucose 192, bilirubin 2, AST 99, and CRP elevated at 72.7. Chest x-ray showed bibasilar infiltrates which may reflect Covid-19 related pneumonia. In the ER he was started on Rocephin and Zithromax. He was admitted for further monitoring. A Procalcitonin was normal and ferritin was elevated. Chest x-ray continued to show patchy basilar opacities. His hypoxia worsened. His ferritin was increasing, LDH slightly increased, CRP improving on 06/19. COVID-19 +. Patient seen and examined at bedside. Feeling okay to day, cough okay, SOB improving, no nausea, no vomiting, no diarrhea Objective - Vital Signs Vital signs: Vital Signs Temp 98.2 F 06/21/19 17:28 Pulse 79 06/21/19 17:28 Resp 20 06/21/19 15:00 BP 122/71 06/21/19 15:00 Pulse Ox 95 06/21/19 17:28 Intake & Output 06/20/19 06/21/19 06/21/19 18:59 06:59 18:59 Intake Total 582 888 Balance 582 888 Intake: Intake, IV Titration 50 Amount cefTRIAXone 1 gm In 50 Sodium Chloride 0.9% 50 ml @ 100 mls/hr IVPB Q24HR [facility] Rx#:[id number] Oral 532 884 Other: Voiding Method Toilet # Voids 0 1 - Exam General: Ill-appearing, no distress, appears at stated age Derm: warm, dry Head: atraumatic, normocephalic, symmetric Eyes: EOMI, no lid lag, anicteric sclera Mouth: no lip lesion, mucus membranes dry Cardiovascular: S1S2 reg, no murmur, positive posterior tibial pulse bilateral, Lungs: Coarse breath sounds bilateral, no accessory muscle use Abdominal: soft, nontender to palpation, no guarding, no appreciable organomegaly Ext: no gross muscle atrophy, no edema, no contractures Neuro: CN II-XI grossly intact, no focal neuro deficits Psych: Alert, oriented, appropriate affect - Labs CBC & Chem 7: 06/21/19 07:17 06/21/19 07:17 Labs: Abnormal Lab Results - Last 24 Hours (Table) 06/18/19 06/21/19 06/21/19 Range/Units 10:10 07:17 07:17 Lymphocytes # 0.8 L (1.0-4.8) k/uL Sodium 132 L (137-145) mmol/L Glucose 118 H (74-99) mg/dL Calcium 7.7 L (8.4-10.2) mg/dL Total Bilirubin 1.8 H (0.2-1.3) mg/dL AST 96 H (17-59) U/L Total Protein 6.0 L (6.3-8.2) g/dL Albumin 3.0 L (3.5-5.0) g/dL Coronavirus (PCR) DETECTED A (Not Detectd) Microbiology - Last 24 Hours (Table) 06/18/19 11:25 Blood Culture - Preliminary Blood No Growth after 72 hours Assessment and Plan Assessment: Bilateral pneumonia, due to COVID 19 infection -Flu negative, COVID 19 + -Low lymphocyte count -Follow CRP, LDH, ferritin, d-dimer every 48 hours -Follow chest x-ray until clear -Albuterol MDI -Continue with Plaquenil, telemetry monitoring, cardiology is following -Optimization of potassium and magnesium -stop ABX no that COVID + -Patient has a dry cough and therefore sputum culture not obtained Acute respiratory failure secondary to increased work of breathing -Supportive care as above Coronary artery disease with history of tetralogy repair and four-vessel bypass -Lipitor, Coreg, and aspirin Hypertension, controlled -Continue with Coreg, amlodipine and benazepril -Follow blood pressures Transaminitis, mild and chronic -Improved from baseline -Continue to follow CMP Dyslipidemia -Statin therapy DVT prophylaxis: Heparin Discussed with: Patient, nursing Anticipated discharge date: in AM Anticipated discharge place: Home A total of 35 minutes was spent on the care of this complex patient more than 50% of the time was spent in counseling and care coordination.
[2019-06-21] MEDS: DOXAZOSIN 4 MG TAB PO SCH (21:48)
[2019-06-21] MEDS: ATORVASTATIN 80 MG TAB PO SCH (21:48)
[2019-06-22] MEDS: ACETAMINOPHEN TAB 325 MG TAB PO PRN (04:21)
--- NOTE | 2019-06-22 07:02 | XR ---
EXAMINATION TYPE: XR chest 1V portable DATE OF EXAM: 06/22/2019 HISTORY: pneumonia. REFERENCE: Previous study dated 06/19/2019. FINDINGS: There has been a midline sternotomy. There is worsening bilateral pneumonia with increasing infiltrates present bilaterally. The heart frances ears enlarged. LV difficult to exclude a tiny left effusion. IMPRESSION: WORSENING BILATERAL PNEUMONIAS.
[2019-06-22] MEDS: ALBUTEROL HFA INHALER INHALATION PRN ×4 (07:37→21:21)
[2019-06-22 07:59] LABS: Basophils % (A) 0 %; Eosinophils # (A) 0.1 k/uL (0-0.7); Eosinophils % (A) 1 %; HCT 40.5 % (39.0-53.0); Lymphocytes # (A) 0.9 k/uL (1.0-4.8); Lymphocytes % (A) 15 %; MCH 31.1 pg (25.0-35.0); MCHC 34.6 g/dL (31.0-37.0); MCV 89.9 fL (80.0-100.0); Mean Platelet Volume 7.9; Monocytes # (A) 0.4 k/uL (0-1.0); Monocytes % (A) 6 %; Neutrophils # (A) 4.5 k/uL (1.3-7.7); Neutrophils % (A) 75 %; Platelet Count 290 k/uL (150-450); RDW 12.6 % (11.5-15.5)
[2019-06-22] MEDS: HEPARIN SODIUM,PORCINE 5,000 UNIT/ML 1 ML VIAL SQ SCH ×2 (07:59→20:01)
[2019-06-22] MEDS: guaiFENesin-Coden 100-10MG/5ML 10 ML CUP PO PRN ×3 (07:59→21:06)
[2019-06-22] MEDS: ASPIRIN 81 MG PO SCH (07:59)
[2019-06-22] MEDS: CARVEDILOL 12.5 MG TAB PO SCH ×2 (08:00→17:21)
[2019-06-22] MEDS: LISINOPRIL 20 MG TAB PO SCH (08:00)
[2019-06-22] MEDS: HYDROXYCHLOROQUINE SULFATE 200 MG TAB PO SCH ×2 (08:00→20:20)
[2019-06-22] MEDS: amLODIPine 5 MG TAB PO SCH (08:00)
[2019-06-22] MEDS: ALLOPURINOL 100 MG TAB PO SCH ×2 (08:00→20:01)
[2019-06-22 08:25] LABS: ALT 34 U/L (4-49); AST 102 U/L (17-59); African American GFR (CKD) >90 (>60 ml/min/1.73 sqM); Albumin 3.1 g/dL (3.5-5.0); Alkaline Phosphatase 60 U/L (38-126); Anion Gap 6 mmol/L; Blood Urea Nitrogen 13 mg/dL (9-20); Carbon Dioxide 30 mmol/L (22-30); Chloride 98 mmol/L (98-107); Creatine Kinase 296 U/L (55-170); Glucose 122 mg/dL (74-99); LDH 1011 U/L (313-618); Non-African American GFR(CKD) >90 (>60 ml/min/1.73 sqM); Potassium 4.2 mmol/L (3.5-5.1); Sodium 134 mmol/L (137-145); Total Bilirubin 1.7 mg/dL (0.2-1.3); Total Protein 6.2 g/dL (6.3-8.2)
[2019-06-22] MEDS ORDERED: FUROSEMIDE 10 MG/ML 4 ML VIAL IV STA (08:52)
--- NOTE | 2019-06-22 12:17 | P.PN ---
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 He follows in the office with Dr. Willard. Patient seen and examined sitting up in the chair in no acute distress. Overall he states he is feeling much better. He has been up ambulating around the room and states his exertional shortness of breath has almost completely resolved. He has no symptoms of chest pain, dizziness or palpitations. Initially the plan was for discharge home today however repeat chest x-ray this morning revealed worsening bilateral pneumonia. Laboratory data reviewed, CBC unremarkable, sodium 134, potassium 4.2, creatinine 0.85, lactate 1011, CK 296 and C-reactive protein 169. Repeat EKG this morning revealed QT interval of 470. Currently maintained on Plavix now for treatment of Covid 19. GENERAL: Well-appearing, well-nourished and in no acute distress. NECK: Supple without JVD or thyromegaly. LUNGS: Scattered rhonchi. No wheezes or rales. Respiration equal and unlabored. HEART: Regular rate and rhythm without murmurs, rubs or gallops. S1 and S2 heard. EXTREMITIES: Normal range of motion, no edema. No clubbing or cyanosis. Pe ripheral pulses intact. ASSESSMENT Cough, shortness of breath and fever, COVID 19 positive COVID 19 Coronary artery disease s/p bypass grafting History of tetralogy of fallot s/p right outflow tract widening Hypertension Dyslipidemia PLAN Repeat EKG in the morning to assess QT interval. Nurse Practitioner note has been reviewed, I agree with a documented findings and plan of care. Patient was seen and examined. Objective - Vital Signs Vital signs: Vital Signs Temp 98.2 F 06/22/19 07:00 Pulse 76 06/22/19 11:17 Resp 20 06/22/19 11:17 BP 111/72 06/22/19 11:17 Pulse Ox 96 06/22/19 11:17 Intake & Output 06/21/19 06/22/19 06/22/19 18:59 06:59 18:59 Intake Total 888 300 Balance 888 300 Intake: Intake, IV Titration 200 Amount Sodium Chloride 0.9% 1, 200 000 ml @ 50 mls/hr IV . Q20H [facility] Rx#:[id number] Oral 888 100 Other: Voiding Method Toilet # Voids 1 1 - Labs CBC & Chem 7: 06/22/19 07:13 06/22/19 07:13 Labs: Abnormal Lab Results - Last 24 Hours (Table) 06/18/19 06/22/19 06/22/19 Range/Units 10:10 07:13 07:13 Lymphocytes # 0.9 L (1.0-4.8) k/uL Sodium 134 L (137-145) mmol/L Glucose 122 H (74-99) mg/dL Calcium 8.0 L (8.4-10.2) mg/dL Total Bilirubin 1.7 H (0.2-1.3) mg/dL AST 102 H (17-59) U/L Lactate Dehydrogenase 1011 H (313-618) U/L Creatine Kinase 296 H (55-170) U/L C-Reactive Protein 169.0 H (<10.0) mg/L Total Protein 6.2 L (6.3-8.2) g/dL Albumin 3.1 L (3.5-5.0) g/dL Coronavirus (PCR) DETECTED A (Not Detectd) Microbiology - Last 24 Hours (Table) 06/18/19 11:25 Blood Culture - Preliminary Blood No Growth after 72 hours
--- NOTE | 2019-06-22 15:47 | P.PN ---
Subjective Progress Note Date: 06/22/19 (delayed charting seen at 1015) Principal diagnosis: shortness of breath Patient is a 59-year-old male past medical history of coronary artery disease with history of four-vessel bypass and repair of tetralogy of flow, dyslipidemia, hypertension, BPH, and osteoarthritis who presented to the emergency department with complaints of cough and shortness of breath. In the ER he underwent extensive evaluation. Temperature of 99.2 and room air pulse ox of 94. Initial blood work showed low lymphocytes of 0.6, sodium 132, carbon dioxide 20, anion gap 11, glucose 192, bilirubin 2, AST 99, and CRP elevated at 72.7. Chest x-ray showed bibasilar infiltrates which may reflect Covid-19 related pneumonia. In the ER he was started on Rocephin and Zithromax. He was admitted for further monitoring. A Procalcitonin was normal and ferritin was elevated. Chest x-ray continued to show patchy basilar opacities. His hypoxia worsened. His ferritin was increasing, LDH slightly increased, CRP improving on 06/19. COVID-19 +. His O2 requirements had stabalized and we were hoping to discharge on 06/22/2019 but CXR is worsening and Brain is likely 10-12 days into the disease process. Patient seen and examined at bedside. States feeling better and SOB is unachaged but appears slightly more labored (but just got back from the bathroom and having lots of coughing). He states that cough medicine is helping. No chest pain, nausea, vomiting, or diarrhea, no worsening muscle aches and pain, no headache. Objective - Vital Signs Vital signs: Vital Signs Temp 98.4 F 06/22/19 15:06 Pulse 86 06/22/19 15:06 Resp 22 06/22/19 15:06 BP 122/76 06/22/19 15:06 Pulse Ox 95 06/22/19 15:06 Intake & Output 06/21/19 06/22/19 06/22/19 18:59 06:59 18:59 Intake Total 888 300 Balance 888 300 Intake: Intake, IV Titration 200 Amount Sodium Chloride 0.9% 1, 200 000 ml @ 50 mls/hr IV . Q20H [facility] Rx#:[id number] Oral 888 100 Other: Voiding Method Toilet # Voids 1 1 5 - Exam General: Ill-appearing, no distress, appears at stated age Derm: warm, dry Head: atraumatic, normocephalic, symmetric Eyes: EOMI, no lid lag, anicteric sclera Mouth: no lip lesion, mucus membranes dry Cardiovascular: S1S2 reg, no murmur, positive posterior tibial pulse bilateral, Lungs: Ronchi bilateral, + accessory muscle use Abdominal: soft, nontender to palpation, no guarding, no appreciable organomegaly Ext: no gross muscle atrophy, no edema, no contractures Neuro: CN II-XI grossly intact, no focal neuro deficits Psych: Alert, oriented, appropriate affect - Labs CBC & Chem 7: 06/22/19 07:13 06/22/19 07:13 Labs: Abnormal Lab Results - Last 24 Hours (Table) 06/22/19 06/22/19 Range/Units 07:13 07:13 Lymphocytes # 0.9 L (1.0-4.8) k/uL Sodium 134 L (137-145) mmol/L Glucose 122 H (74-99) mg/dL Calcium 8.0 L (8.4-10.2) mg/dL Total Bilirubin 1.7 H (0.2-1.3) mg/dL AST 102 H (17-59) U/L Lactate Dehydrogenase 1011 H (313-618) U/L Creatine Kinase 296 H (55-170) U/L C-Reactive Protein 169.0 H (<10.0) mg/L Total Protein 6.2 L (6.3-8.2) g/dL Albumin 3.1 L (3.5-5.0) g/dL Microbiology - Last 24 Hours (Table) 06/18/19 11:25 Blood Culture - Preliminary Blood No Growth after 96 hours Assessment and Plan Assessment: Bilateral pneumonia, due to COVID 19 infection with acute hypoxic respiratory failure - Awake proning starting 06/22/2019 due to worsening cxr. -COVID 19 + -Low lymphocyte count -Follow CRP, LDH, ferritin, d-dimer, and procalcitonin again in AM -Follow chest x-ray until clear -Albuterol MDI -Continue with Plaquenil, telemetry monitoring, cardiology is following QTC 06/21 470 -Optimization of potassium and magnesium -Patient has a dry cough and therefore sputum culture not obtained Coronary artery disease with history of tetralogy repair and four-vessel bypass -Lipitor, Coreg, and aspirin Hypertension, controlled -Continue with Coreg, amlodipine and benazepril -Follow blood pressures Transaminitis, mild and chronic -essentially at baseline -Continue to follow CMP Dyslipidemia -Statin therapy Sherri updated on the phone. DVT prophylaxis: Heparin Discussed with: Patient, nursing Anticipated discharge date: 2-[address]: Home A total of 35 minutes was spent on the care of this complex patient more than 50% of the time was spent in counseling and care coordination.
[2019-06-22] MEDS: SODIUM CHLORIDE 0.9% 1,000 ML IV SCH (19:23)
[2019-06-22] MEDS: ATORVASTATIN 80 MG TAB PO SCH (20:01)
[2019-06-22] MEDS: DOXAZOSIN 4 MG TAB PO SCH (20:01)
[2019-06-23 06:57] LABS: Basophils % (A) 1 %; Eosinophils # (A) 0.1 k/uL (0-0.7); Eosinophils % (A) 2 %; HCT 40.5 % (39.0-53.0); HGB 13.4 gm/dL (13.0-17.5); Lymphocytes # (A) 0.9 k/uL (1.0-4.8); Lymphocytes % (A) 14 %; MCHC 33.1 g/dL (31.0-37.0); MCV 90.4 fL (80.0-100.0); Mean Platelet Volume 8.1; Monocytes # (A) 0.6 k/uL (0-1.0); Monocytes % (A) 10 %; Neutrophils # (A) 4.6 k/uL (1.3-7.7); Neutrophils % (A) 71 %; Platelet Count 293 k/uL (150-450); RBC 4.48 m/uL (4.30-5.90); RDW 12.6 % (11.5-15.5); WBC 6.5 k/uL (3.8-10.6)
[2019-06-23 07:17] LABS: ALT 34 U/L (4-49); AST 101 U/L (17-59); African American GFR (CKD) >90 (>60 ml/min/1.73 sqM); Albumin 2.8 g/dL (3.5-5.0); Alkaline Phosphatase 61 U/L (38-126); Anion Gap 6 mmol/L; Blood Urea Nitrogen 16 mg/dL (9-20); Calcium 7.8 mg/dL (8.4-10.2); Carbon Dioxide 28 mmol/L (22-30); Chloride 99 mmol/L (98-107); Glucose 110 mg/dL (74-99); Non-African American GFR(CKD) 87 (>60 ml/min/1.73 sqM); Sodium 133 mmol/L (137-145); Total Bilirubin 1.4 mg/dL (0.2-1.3); Total Protein 5.9 g/dL (6.3-8.2)
[2019-06-23] MEDS: ALBUTEROL HFA INHALER INHALATION PRN ×4 (07:45→18:59)
--- NOTE | 2019-06-23 08:03 | XR ---
EXAMINATION TYPE: XR chest 1V portable DATE OF EXAM: 06/23/2019 COMPARISON: 06/22/2019 HISTORY: Multifocal pneumonia. EXAM. TECHNIQUE: Single frontal view of the chest is obtained. FINDINGS: Peripheral multifocal opacities in the midlungs and left lung base are slightly improved f rom the prior exam. Lung apices are spared. Cardiomediastinal silhouette is obscured with post CABG c hange. No acute osseous process. No new pleural effusion or pneumothorax. IMPRESSION: Minimal improvement in the peripheral multifocal opacities. Again [id number] pneumo denise/lung damage should be considered in this patient or more typical pneumonias.
[2019-06-23] MEDS: ASPIRIN 81 MG PO SCH (08:50)
[2019-06-23] MEDS: guaiFENesin-Coden 100-10MG/5ML 10 ML CUP PO PRN ×2 (08:50→14:49)
[2019-06-23] MEDS: HEPARIN SODIUM,PORCINE 5,000 UNIT/ML 1 ML VIAL SQ SCH ×2 (08:50→21:42)
[2019-06-23] MEDS: ALLOPURINOL 100 MG TAB PO SCH ×2 (08:50→21:42)
[2019-06-23] MEDS: CARVEDILOL 12.5 MG TAB PO SCH ×2 (08:50→17:16)
[2019-06-23] MEDS: HYDROXYCHLOROQUINE SULFATE 200 MG TAB PO SCH ×2 (08:51→21:43)
[2019-06-23] MEDS: LISINOPRIL 20 MG TAB PO SCH (08:51)
[2019-06-23] MEDS: amLODIPine 5 MG TAB PO SCH (08:51)
--- NOTE | 2019-06-23 13:31 | P.PN ---
<Mary Whitaker - Last Filed: 06/23/19 13:19> Subjective Progress Note Date: 06/23/19 CHIEF COMPLAINT: Covid 19 HISTORY OF PRESENT ILLNESS: 06/22/2019: Patient is an 86-year-old [place] male with a past medical history of hypertension controlled with medication, gout, and dyslipidemia who presented to [facility] with a one-week history of right upper quadrant pain and coughing. He was transferred here as part of the Covma relief process. He underwent a CT of the chest which showed patchy opacities bilaterally. He was started on Doxy and hydroxychloroquine. He had fevers up to 101.9 on the night of admission. Laboratory analysis showed lymphopenia, hyponatremia, elevated ferritin, AST 72, LDH 882, CPK 654, and CRP 32.4. Pro-calcitonin was negative. Influenza A and B were negative. Chest x-ray showed bilateral interstitial infiltrates in the lower lobes. He underwent an abdominal ultrasound which was nonacute. He continued to spike fevers after admission with a T-max of 100.5 on 06/21/2019. 06/23/2019: Patient examined at the bedside. Patient reports his breathing has improved significantly today. He states he is able to walk to the bathroom and hold a conversation today without being winded. He reports his cough has improved as well. Repeat chest x-ray today reveals peripheral multifocal opacities in the mid lungs and left lung base slightly improved from prior exam. He remains on 3 L nasal cannula. Oxygen saturations 94%. He is afebrile today. PHYSICAL EXAM: VITAL SIGNS: Reviewed GENERAL: Well-developed in no acute distress. HEENT: No sclera icterus. Extraocular movements grossly intact. Moist buccal mucosa. Head is atraumatic, normocephalic. Hears conversational speech. No nasal drainage. NECK: Supple without lymphadenopathy. CHEST: Lung sounds diminished, slightly coarse. Non-labored respirations and equal bilateral excursions. CARDIOVASCULAR: Regular rate with regular rhythm. Palpable pulses. ABDOMEN: Soft. Nondistended. Nontender. MUSCULOSKELETAL: No clubbing or cyanosis. NEUROLOGIC: No focal or lateralizing signs. Cranial nerves II through XII grossly intact. PSYCH: Appropriate affect. Alert and oriented to person, place and time. SKIN: Well perfused. Good skin turgor. ASSESSMENT AND PLAN: 1. Bilateral pneumonia secondary to acute Covid 19 infection, acute hypoxic respiratory failure -Supportive care -Continue awake proning -Continue Plaquenil -Continue to monitor labs -Limit IV fluids -Continue contact and droplet isolation precautions -Continue zinc -Cardiology following secondary to QT 470 2. Transaminitis, chronic -Continue to monitor 3. Hypertension -Continue Norvasc, Coreg, and lisinopril -Monitor blood pressure 4. Dyslipidemia -Continue statin therapy DVT prophylaxis: Heparin subcu Discussed with: Nursing, patient Anticipated discharge: To be determined Anticipated discharge place: Home Nurse practitioner note has been reviewed by physician. Signing provider agrees with the documented findings, assessment, and plan of care. Objective - Vital Signs Vital signs: Vital Signs Temp 98.1 F 06/23/19 11:05 Pulse 78 06/23/19 11:05 Resp 19 06/23/19 12:58 BP 109/70 06/23/19 11:05 Pulse Ox 94 L 06/23/19 12:58 Intake & Output 06/22/19 06/23/19 06/23/19 18:59 06:59 18:59 Intake Total 470 Balance 470 Intake: Oral 470 Other: Voiding Method Toilet # Voids 5 2 - Labs CBC & Chem 7: 06/23/19 05:38 06/23/19 05:38 Labs: Abnormal Lab Results - Last 24 Hours (Table) 06/23/19 06/23/19 06/23/19 Range/Units 05:38 05:38 05:38 Lymphocytes # 0.9 L (1.0-4.8) k/uL D-Dimer 1.68 H (<0.60) mg/L FEU Sodium (137-145) mmol/L Glucose (74-99) mg/dL Calcium (8.4-10.2) mg/dL Total Bilirubin (0.2-1.3) mg/dL AST (17-59) U/L Total Protein (6.3-8.2) g/dL Albumin (3.5-5.0) g/dL Procalcitonin 0.15 H (0.02-0.09) ng/mL 06/23/19 Range/Units 05:38 Lymphocytes # (1.0-4.8) k/uL D-Dimer (<0.60) mg/L FEU Sodium 133 L (137-145) mmol/L Glucose 110 H (74-99) mg/dL Calcium 7.8 L (8.4-10.2) mg/dL Total Bilirubin 1.4 H (0.2-1.3) mg/dL AST 101 H (17-59) U/L Total Protein 5.9 L (6.3-8.2) g/dL Albumin 2.8 L (3.5-5.0) g/dL Procalcitonin (0.02-0.09) ng/mL Microbiology - Last 24 Hours (Table) 06/18/19 11:25 Blood Culture - Preliminary Blood No Growth after 96 hours <Hilaria Olvera - Last Filed: 06/23/19 17:55> Objective - Vital Signs Vital signs: Vital Signs Temp 98.8 F 06/23/19 14:59 Pulse 79 06/23/19 14:59 Resp 18 06/23/19 17:23 BP 107/67 06/23/19 14:59 Pulse Ox 96 06/23/19 17:23 Intake & Output 06/22/19 06/23/19 06/23/19 18:59 06:59 18:59 Intake Total 470 Balance 470 Intake: Oral 470 Other: Voiding Method Toilet # Voids 5 2 3 - Labs CBC & Chem 7: 06/23/19 05:38 06/23/19 05:38 Labs: Abnormal Lab Results - Last 24 Hours (Table) 06/22/19 06/23/19 06/23/19 Range/Units 07:13 05:38 05:38 Lymphocytes # 0.9 L (1.0-4.8) k/uL D-Dimer (<0.60) mg/L FEU Sodium (137-145) mmol/L Glucose (74-99) mg/dL Calcium (8.4-10.2) mg/dL Ferritin 1428.1 H (22.0-322.0) ng/mL Total Bilirubin (0.2-1.3) mg/dL AST (17-59) U/L Total Protein (6.3-8.2) g/dL Albumin (3.5-5.0) g/dL Procalcitonin 0.15 H (0.02-0.09) ng/mL 06/23/19 06/23/19 Range/Units 05:38 05:38 Lymphocytes # (1.0-4.8) k/uL D-Dimer 1.68 H (<0.60) mg/L FEU Sodium 133 L (137-145) mmol/L Glucose 110 H (74-99) mg/dL Calcium 7.8 L (8.4-10.2) mg/dL Ferritin 1522.6 H (22.0-322.0) ng/mL Total Bilirubin 1.4 H (0.2-1.3) mg/dL AST 101 H (17-59) U/L Total Protein 5.9 L (6.3-8.2) g/dL Albumin 2.8 L (3.5-5.0) g/dL Procalcitonin (0.02-0.09) ng/mL Microbiology - Last 24 Hours (Table) 06/18/19 11:25 Blood Culture - Preliminary Blood No Growth after 120 hours Assessment and Plan Assessment: I saw and evaluated the patient and discussed the care with [ Matilda Whitaker], JAYY on [06/23/2019 ]. I agree with the subjective, assessment and plan as documented in the note above. Patient's oxygen requirements have been decreasing. Discussed with nursing, attempt to wean down oxygen. Plans for possible DC in 1-2 days. Physical exam: General: [Non toxic], [No distress], [appears at stated age] Skin: [warm], [dry], [diaphoretic] Lungs: [chest rise symmetrical], [no accessory muscle use], [no conversational dyspnea] Cardiovascular: [ + dorsal pedis pulse bilateral], [capillary refill <2 seconds], [no lower extremity edema]
[2019-06-23 13:41] LABS: Ferritin 1428.1 ng/mL (22.0-322.0)
[2019-06-23] MEDS: SODIUM CHLORIDE 0.9% 1,000 ML IV SCH (14:48)
[2019-06-23 15:59] LABS: Ferritin 1522.6 ng/mL (22.0-322.0)
[2019-06-23] MEDS: ATORVASTATIN 80 MG TAB PO SCH (21:42)
[2019-06-23] MEDS: DOXAZOSIN 4 MG TAB PO SCH (21:42)
[2019-06-24 07:22] LABS: ALT 59 U/L (4-49); AST 138 U/L (17-59); African American GFR (CKD) >90 (>60 ml/min/1.73 sqM); Albumin 3.1 g/dL (3.5-5.0); Alkaline Phosphatase 70 U/L (38-126); Anion Gap 7 mmol/L; Blood Urea Nitrogen 13 mg/dL (9-20); Carbon Dioxide 29 mmol/L (22-30); Chloride 99 mmol/L (98-107); Creatine Kinase 236 U/L (55-170); Glucose 132 mg/dL (74-99); LDH 1004 U/L (313-618); Non-African American GFR(CKD) >90 (>60 ml/min/1.73 sqM); Potassium 4.2 mmol/L (3.5-5.1); Sodium 135 mmol/L (137-145); Total Bilirubin 1.2 mg/dL (0.2-1.3); Total Protein 6.4 g/dL (6.3-8.2)
[2019-06-24 07:44] LABS: Basophils % (A) 1 %; Eosinophils # (A) 0.1 k/uL (0-0.7); Eosinophils % (A) 2 %; HCT 40.8 % (39.0-53.0); HGB 13.8 gm/dL (13.0-17.5); Lymphocytes % (A) 16 %; MCH 30.4 pg (25.0-35.0); MCHC 33.8 g/dL (31.0-37.0); Mean Platelet Volume 7.9; Monocytes # (A) 0.4 k/uL (0-1.0); Monocytes % (A) 7 %; Neutrophils # (A) 4.3 k/uL (1.3-7.7); Neutrophils % (A) 72 %; Platelet Count 354 k/uL (150-450); RBC 4.54 m/uL (4.30-5.90); RDW 12.6 % (11.5-15.5); WBC 6.1 k/uL (3.8-10.6)
[2019-06-24] MEDS: HEPARIN SODIUM,PORCINE 5,000 UNIT/ML 1 ML VIAL SQ SCH (07:50)
[2019-06-24] MEDS: HYDROXYCHLOROQUINE SULFATE 200 MG TAB PO SCH (07:50)
[2019-06-24] MEDS: ASPIRIN 81 MG PO SCH (07:50)
[2019-06-24] MEDS: amLODIPine 5 MG TAB PO SCH (07:51)
[2019-06-24] MEDS: ALLOPURINOL 100 MG TAB PO SCH (07:51)
[2019-06-24] MEDS: LISINOPRIL 20 MG TAB PO SCH (07:51)
[2019-06-24] MEDS: CARVEDILOL 12.5 MG TAB PO SCH (07:51)
[2019-06-24] MEDS: ALBUTEROL HFA INHALER INHALATION PRN ×2 (07:59→11:28)
[2019-06-24] MEDS: SODIUM CHLORIDE 0.9% 1,000 ML IV SCH (08:03)
[2019-06-24] MEDS: guaiFENesin-Coden 100-10MG/5ML 10 ML CUP PO PRN (08:03)
[2019-06-24 08:22] LABS: C Reactive Protein 84.6 mg/L (<10.0)
--- NOTE | 2019-06-24 10:27 | P.DS ---
<Mary Whitaker - Last Filed: 06/24/19 10:25> Providers Expected date of discharge: 06/24/19 Hospital Course: 06/22/2019: Patient is an 86-year-old Montene[place]in male with a past medical history of hypertension controlled with medication, gout, and dyslipidemia who presented to [facility] with a one-week history of right upper quadrant pain and coughing. He was transferred here as part of the Covid relief process. He underwent a CT of the chest which showed patchy opacities bilaterally. He was started on Doxy and hydroxychloroquine. He had fevers up to 101.9 on the night of admission. Laboratory analysis showed lymphopenia, hyponatremia, elevated ferritin, AST 72, LDH 882, CPK 654, and CRP 32.4. Pro-calcitonin was negative. Influenza A and B were negative. Chest x-ray showed bilateral interstitial infiltrates in the lower lobes. He underwent an abdominal ultrasound which was nonacute. He continued to spike fevers after admission with a T-max of 100.5 on 06/21/2019. 06/23/2019: Patient examined at the bedside. Patient reports his breathing has improved significantly today. He states he is able to walk to the bathroom and hold a conversation today without being winded. He reports his cough has improved as well. Repeat chest x-ray today reveals peripheral multifocal opacities in the mid lungs and left lung base slightly improved from prior exam. He remains on 3 L nasal cannula. Oxygen saturations 94%. He is afebrile today. 06/24/2019: Patient continues to show improvement. He is on room air with oxygen saturations greater than 92%. Vital signs are stable. He is stable for discharge home today. Patient completed his course of Plaquenil during hospitalization. He is prescribed an albuterol inhaler at discharge. Discharge Diagnosis: 1. Bilateral pneumonia secondary to acute Covid 19 infection, acute hypoxic respiratory failure 2. Transaminitis, chronic 3. Hypertension 4. Dyslipidemia Nurse practitioner note has been reviewed by physician. Signing provider agrees with the documented findings, assessment, and plan of care. Patient Condition at Discharge: Stable Plan - Discharge Summary Discharge Rx Participant: No New Discharge Prescriptions: New Acetaminophen Tab [Tylenol] 650 mg PO Q6HR PRN tab PRN Reason: Mild Pain Or Fever > 100.5 Albuterol Inhaler [Ventolin Hfa Inhaler] 2 puff INHALATION RT-QID PRN #1 inhaler PRN Reason: Shortness Of Breath Or Wheezing guaiFENesin-Coden 100-10MG/5ML [Robitussin AC] 10 ml PO Q6H PRN #1 bottle PRN Reason: Cough Continue Allopurinol [Zyloprim] 100 mg PO BID Carvedilol [Coreg*] 12.5 mg PO BID-W/MEALS #60 tab amLODIPine BESYLATE/BENAZEPRIL [amLODIPine BESYLATE/BENAZEPRIL 5-20 MG] 1 tab PO DAILY Aspirin EC [Ecotrin Low Dose] 162 mg PO DAILY Atorvastatin [Lipitor] 80 mg PO HS Terazosin [Hytrin] 5 mg PO HS Testosterone [Androgel 1% Gel Packet] 5 gram TOPICAL Q3D Discontinued Naproxen Sodium [Aleve] 220 mg PO Q8H PRN PRN Reason: Pain Discharge Medication List Allopurinol [Zyloprim] 100 mg PO BID 12/07/15 [History] Carvedilol [Coreg*] 12.5 mg PO BID-W/MEALS #60 tab 01/03/16 [Rx] amLODIPine BESYLATE/BENAZEPRIL [amLODIPine BESYLATE/BENAZEPRIL 5-20 MG] 1 tab PO DAILY 02/25/18 [History] Aspirin EC [Ecotrin Low Dose] 162 mg PO DAILY 02/28/18 [History] Atorvastatin [Lipitor] 80 mg PO HS 02/28/18 [History] Terazosin [Hytrin] 5 mg PO HS 06/18/19 [History] Testosterone [Androgel 1% Gel Packet] 5 gram TOPICAL Q3D 06/18/19 [History] Acetaminophen Tab [Tylenol] 650 mg PO Q6HR PRN tab 06/24/19 [Rx] Albuterol Inhaler [Ventolin Hfa Inhaler] 2 puff INHALATION RT-QID PRN #1 inhaler 06/24/19 [Rx] guaiFENesin-Coden 100-10MG/5ML [Robitussin AC] 10 ml PO Q6H PRN #1 bottle 06/24/19 [Rx] Follow up Appointment(s)/Referral(s): Trever Willard MD [STAFF PHYSICIAN] - 4 Weeks Clint Linda MD [Primary Care Provider] - 1-2 days Discharge Disposition: HOME SELF-CARE <Hilaria Olvera - Last Filed: 06/24/19 16:59> Providers Date of admission: 06/18/19 12:48 Attending physician: Mariposa Bella DO Consults: 06/19/19 18:48 Consult Physician Routine Consulting Provider: Mark Bearden Consult Reason/Comments: CAD, plaquenil with Qt 460 Do you want consulting provider notified?: Yes Primary care physician: Clint Vargas [facility] Course: I have seen and examined the patient on their discharge day with [Mary Whitaker], JAYY. I have reviewed, edited, and agree with the above discharge summary. More than 30 minutes was personally spent on discharge planning on the day of discharge in coordination of care,counseling the patient, and prep aration of discharge and transfer paperwork. Physical exam: General: [Non toxic], [No distress], [appears at stated age] Skin: [warm], [dry] Lungs: [chest rise symmetrical], [no accessory muscle use], [no conversational dyspnea] Cardiovascular: [ + dorsal pedis pulse bilateral], [capillary refill <2 seconds], [no lower extremity edema]
[2019-06-24 11:48] VITALS: RESP 18
[2019-06-24 15:25] VITALS: BP 128/74; PULSE 78; TEMP 98
== END 2019-06-24 16:11 | disposition home or self-care (01) | DRG 177 ==
LOC: EC 09:16 → 4SSUR 12:48
PROVIDERS: ADMIT Internal Medicine; ATTEND Internal Medicine
DX: U07.1 COVID-19 (principal); J12.89 Other viral pneumonia; J96.01 Acute respiratory failure with hypoxia; Q21.3 Tetralogy of Fallot; E87.1 Hypo-osmolality and hyponatremia; I25.10 Atherosclerotic heart disease of native coronary artery without angina pectoris; I10 Essential (primary) hypertension; E78.5 Hyperlipidemia, unspecified; N40.0 Benign prostatic hyperplasia without lower urinary tract symptoms; M10.9 Gout, unspecified; M47.892 Other spondylosis, cervical region; M17.0 Bilateral primary osteoarthritis of knee; F41.9 Anxiety disorder, unspecified; E66.9 Obesity, unspecified; R74.0 Nonspecific elevation of levels of transaminase and lactic acid dehydrogenase [LDH]; I45.10 Unspecified right bundle-branch block; I37.1 Nonrheumatic pulmonary valve insufficiency; D72.810 Lymphocytopenia; R79.82 Elevated C-reactive protein (CRP); I34.0 Nonrheumatic mitral (valve) insufficiency; Z79.899 Other long term (current) drug therapy; Z79.82 Long term (current) use of aspirin; Z95.2 Presence of prosthetic heart valve; Z87.74 Personal history of (corrected) congenital malformations of heart and circulatory system; Z98.890 Other specified postprocedural states; Z95.1 Presence of aortocoronary bypass graft; Z68.30 Body mass index [BMI] 30.0-30.9, adult; Z96.651 Presence of right artificial knee joint; Z80.7 Family history of other malignant neoplasms of lymphoid, hematopoietic and related tissues; Z82.49 Family history of ischemic heart disease and other diseases of the circulatory system; Z84.1 Family history of disorders of kidney and ureter
CPT/HCPCS: 36415; 71045; 71046; 80053; 82550; 82728; 83605; 83615; 83735; 83880; 84145; 84484; 85025; 85379; 86140; 87040; 87502; 93005; 94640; 96365; 96375; 99291

== ENCOUNTER → 2019-12-25 | Outpatient (CLI) | payer MEDICAID ==
[2019-12-25 07:56] LABS: HCT 50.3 % (39.0-53.0); HGB 16.3 gm/dL (13.0-17.5); MCH 29.7 pg (25.0-35.0); MCHC 32.4 g/dL (31.0-37.0); MCV 91.7 fL (80.0-100.0); Mean Platelet Volume 8.7; Platelet Count 204 k/uL (150-450); RBC 5.48 m/uL (4.30-5.90); RDW 13.7 % (11.5-15.5); WBC 7.7 k/uL (3.8-10.6)
[2019-12-25 16:30] LABS: Erythrocyte Sedimentation Rate 3 mm/Hr (0-20)
[2019-12-25 19:24] LABS: ALT 29 U/L (10-49); AST 65 U/L (14-35); African American GFR (CKD) 96.4 (60.0-200.0); Albumin/Globulin Ratio 1.76 (1.60-3.17); Alkaline Phosphatase 83 U/L (41-126); C Reactive Protein <0.4 mg/dL (0.0-0.8); Calcium 9.6 mg/dL (8.7-10.3); Carbon Dioxide 23.6 mmol/L (21.6-31.8); Chloride 104 mmol/L (96-109); Chol/HDL Ratio 2.86; Cholesterol 126 mg/dL (0-200); Globulin 2.5 g/dL (1.6-3.3); Glucose 168 mg/dL (70-110); LDL Cholesterol,Calculated 62.6 mg/dL (0.0-131.0); Non-African American GFR(CKD) 83.2 (60.0-200.0); Potassium 4.3 mmol/L (3.5-5.5); Sodium 138 mmol/L (135-145); Total Bilirubin 2.6 mg/dL (0.3-1.2); Total Protein 6.9 g/dL (6.2-8.2)
== END | disposition home or self-care (01) ==
LOC: LABWHC1 07:35
PROVIDERS: ATTEND Family Medicine
DX: I10 Essential (primary) hypertension (principal); I25.10 Atherosclerotic heart disease of native coronary artery without angina pectoris; Z95.1 Presence of aortocoronary bypass graft; E78.5 Hyperlipidemia, unspecified; M10.9 Gout, unspecified; L03.031 Cellulitis of right toe
CPT/HCPCS: 36415; 80053; 80061; 84443; 85027; 85652; 86140

== ENCOUNTER → 2019-12-26 | Outpatient (CLI) | payer MEDICAID ==
--- NOTE | 2019-12-26 12:55 | NM ---
EXAMINATION TYPE: NM bone 3 phase DATE OF EXAM: 12/26/2019 COMPARISON: NONE HISTORY: Cellulitis right great toe Triple phase bone scintigraphy was performed following the injection of 22.7 mCi Tc 99m MDP. Immedia te images and 4 hours post injection images acquired with attention to the feet. FINDINGS: Abnormal increased blood flow, blood pool activity noted to the region of the great toe the right vinicio t. Delayed imaging shows localization to the first digit of the right foot. Uptake to the mid feet, l eft first digit, distal right leg is also noted, there may be underlying arthropathy. IMPRESSION: Bodies are consistent with cellulitis, possible osteomyelitis first digit of the right foot. MRI may be of benefit.
== END | disposition home or self-care (01) ==
LOC: RADNMMAIN 07:13
PROVIDERS: ATTEND Family Medicine
DX: L03.031 Cellulitis of right toe (principal)
CPT/HCPCS: 78315

== ENCOUNTER → 2020-12-24 | Outpatient (CLI) | payer MEDICAID ==
[2020-12-24 22:48] LABS: HCT 45.2 % (39.6-50.0); HGB 15.3 g/dL (13.0-17.0); MCH 30.6 pg (27.0-32.0); MCHC 33.8 g/dL (32.0-37.0); MCV 90.4 fL (80.0-97.0); Mean Platelet Volume 11.1 fL (9.5-12.2); Platelet Count 282 X 10*3/uL (140-440); RDW 12.5 % (11.5-14.5); WBC 10.64 X 10*3/uL (4.50-10.00)
[2020-12-25 05:27] LABS: Albumin 4.5 g/dL (3.8-4.9); Albumin/Globulin Ratio 1.67 (1.60-3.17); Anion Gap 12.5 mmol/L (4.00-12.00); BUN/Creat Ratio 19.81 Ratio (12.00-20.00); Blood Urea Nitrogen 16.6 mg/dL (9.0-27.0); Calcium 9.8 mg/dL (8.7-10.3); Carbon Dioxide 23.3 mmol/L (21.6-31.8); Chol/HDL Ratio 2.95 Ratio; Globulin 2.7 g/dL (1.6-3.3); HDL Cholesterol 50.2 mg/dL (40.00-60.00); LDL Cholesterol,Calculated 67.4 mg/dL (0.0-131.0); Non-African American GFR(CKD) 96.6 (60.0-200.0); Potassium 4.3 mmol/L (3.5-5.5); T4, Free (Free Thyroxine) 0.97 ng/dL (0.800-1.800); Total Bilirubin 0.7 mg/dL (0.30-1.20); Total Protein 7.1 g/dL (6.2-8.2); VLDL Calculation 30.4 mg/dL (5.00-40.00)
== END | disposition home or self-care (01) ==
LOC: LABWHC1 14:56
PROVIDERS: ATTEND Physician Assistant
DX: Z00.00 Encounter for general adult medical examination without abnormal findings (principal)
CPT/HCPCS: 36415; 80053; 80061; 82306; 83036; 84439; 84443; 85027

== ENCOUNTER → 2021-11-28 | Outpatient (CLI) | payer MEDICAID ==
[2021-11-28 10:33] LABS: HCT 45.9 % (39.6-50.0); HGB 15.7 g/dL (13.0-17.0); MCHC 34.2 g/dL (32.0-37.0); MCV 90.7 fL (80.0-97.0); Mean Platelet Volume 11.4 fL (9.5-12.2); NRBC Per 100 WBC 0 /100 WBCS (0.0-0.0); Platelet Count 215 X 10*3/uL (140-440); RBC 5.06 X 10*6/uL (4.40-5.60); RDW 12.4 % (11.5-14.5); WBC 7.89 X 10*3/uL (4.50-10.00)
[2021-11-28 10:57] LABS: ALT 58 U/L (10-49); AST 89 U/L (14-35); Albumin 4.2 g/dL (3.8-4.9); Albumin/Globulin Ratio 1.83 (1.60-3.17); Alkaline Phosphatase 74 U/L (41-126); BUN/Creat Ratio 17.11 Ratio (12.00-20.00); Blood Urea Nitrogen 15.4 mg/dL (9.0-27.0); Calcium 9.1 mg/dL (8.7-10.3); Carbon Dioxide 27.7 mmol/L (20.0-27.5); Chloride 102 mmol/L (96-109); Chol/HDL Ratio 3.57 Ratio; Globulin 2.3 g/dL (1.6-3.3); Glucose 288 mg/dL (70-110); LDL Cholesterol,Calculated 71.2 mg/dL (0.0-131.0); Magnesium 1.8 mg/dL (1.5-2.4); Non-African American GFR(CKD) 93.2 (60.0-200.0); Potassium 4.7 mmol/L (3.5-5.5); Sodium 137 mmol/L (135-145); Total Protein 6.5 g/dL (6.2-8.2)
== END | disposition home or self-care (01) ==
LOC: LABWHC1 07:12
PROVIDERS: ATTEND Family Medicine
DX: Z00.00 Encounter for general adult medical examination without abnormal findings (principal)
CPT/HCPCS: 36415; 80053; 80061; 83036; 83735; 84436; 84443; 85027

== ENCOUNTER 2021-12-23 11:35 | Day surgery (SDC) | payer MEDICAID ==
[2021-12-21 11:01] VITALS: BMI 31.2
[~2021-12-23 11:35] MED LIST changes: -ACETAMINOPHEN TAB 500 MG TAB PO ONE; -DEXAMETHASONE SOD PHOSPHATE 10 MG/ML 1 ML VIAL IV ONE; -HYDROmorphone 1 MG/ML 1 ML SYRINGE IVP PRN; +LIDOCAINE 1% (10MG/ML) FOR IV START INTRADERMA PRN; -LIDOCAINE 1% 20 ML VIAL (10MG/ML) FOR IV START INTRADERMA PRN; -MELOXICAM 7.5 MG TAB PO ONE; -MIDAZOLAM 2 MG/2 ML VIAL IV PRN; -ONDANSETRON 4 MG/2 ML VIAL IVP ONE; -ROPIVACAINE 246.25 MG, EPINEPHrine 0.5 MG, KETOROLAC 30 MG, cloNIDine HCL/PF 80 MCG, WA... MISCELLANE ONE; -SCOPOLAMINE 1.5MG/72HR PATCH TRANSDERM ONE; -TRANEXAMIC ACID 1,000 MG in SODIUM CHLORIDE 0.9% 50 ML IVPB ONE; -ceFAZolin IN SWFI 2 GM/20 ML SYRINGE IVP ONE
[2021-12-23 12:34] VITALS: TEMP 97
[2021-12-23] MEDS ORDERED: fentaNYL (PF) 50 MCG/ML 2 ML AMP ONE (13:09)
[2021-12-23] MEDS ORDERED: PROPOFOL 10 MG/ML 20 ML VIAL IV ONE (13:09)
[2021-12-23] MEDS ORDERED: LIDOCAINE 2% INJ 20 MG/ML (2 ML VIAL) ONE (13:09)
[2021-12-23] MEDS ORDERED: MIDAZOLAM 2 MG/2 ML VIAL ONE (13:09)
--- NOTE | 2021-12-23 13:36 | P.PCN ---
Date of Procedure: 12/23/21 Preoperative Diagnosis: Colon cancer screening Postoperative Diagnosis: Colon cancer screening, diverticulosis, colon polyps Procedure(s) Performed: Colonoscopy with polypectomy Anesthesia: MAC Surgeon: Ivonne Gramajo Pathology: other Condition: stable Disposition: PACU Indications for Procedure: Patient presents for colon cancer screening. No prior colonoscopy Description of Procedure: Patient's taken to the endoscopy suite where colonoscope is passed per rectum to the cecum. There is a fairly good prep. A little liquid material is aspirated. Some diverticulosis noted through the colon including the right colon. He has 2 small polyps, one in the mid ascending colon and one in the rectum which are biopsied and destroyed with hot biopsy. Otherwise there is no evidence of mass lesion, ulcer, stricture or other mucosal abnormality. No significant hemorrhoidal disease was seen on retroflexion of the scope. he tolerated the procedure without difficulty and is taken to recovery room in satisfactory condition. We'll call with the report of the biopsy blood and no whether repeat colonoscopy is 5 or 10 years. Plan - Discharge Summary Discharge Rx Participant: No New Discharge Prescriptions: No Action allopurinoL [Zyloprim] 100 mg PO BID carvediloL [Coreg*] 12.5 mg PO BID-W/MEALS #60 tab Aspirin EC [Ecotrin Low Dose] 162 mg PO DAILY Atorvastatin [Lipitor] 80 mg PO HS Terazosin [Hytrin] 5 mg PO HS Testosterone [Androgel 1% Gel Packet] 5 gram TOPICAL Q3D Naproxen Sodium [Aleve] 220 mg PO BID Finasteride [Proscar] 5 mg PO DAILY tadalafiL [Cialis] 20 mg PO DAILY amLODIPine [Norvasc] 10 mg PO DAILY Benazepril HCl 40 mg PO HS Discharge Medication List allopurinoL [Zyloprim] 100 mg PO BID 12/07/15 [History] carvediloL [Coreg*] 12.5 mg PO BID-W/MEALS #60 tab 01/03/16 [Rx] Aspirin EC [Ecotrin Low Dose] 162 mg PO DAILY 02/28/18 [History] Atorvastatin [Lipitor] 80 mg PO HS 02/28/18 [History] Terazosin [Hytrin] 5 mg PO HS 06/18/19 [History] Testosterone [Androgel 1% Gel Packet] 5 gram TOPICAL Q3D 06/18/19 [History] Benazepril HCl 40 mg PO HS 12/21/21 [History] Finasteride [Proscar] 5 mg PO DAILY 12/21/21 [History] Naproxen Sodium [Aleve] 220 mg PO BID 12/21/21 [History] amLODIPine [Norvasc] 10 mg PO DAILY 12/21/21 [History] tadalafiL [Cialis] 20 mg PO DAILY 12/21/21 [History] Discharge Disposition: HOME SELF-CARE
[2021-12-23 14:08] VITALS: RESP 20
[2021-12-23 14:23] VITALS: BP 128/79; PULSE 74
== END 2021-12-23 14:38 | disposition home or self-care (01) ==
LOC: ORWHC2ENDO 11:35
PROVIDERS: ATTEND Surgery
DX: Z12.11 Encounter for screening for malignant neoplasm of colon (principal); D12.2 Benign neoplasm of ascending colon; K62.1 Rectal polyp; I25.10 Atherosclerotic heart disease of native coronary artery without angina pectoris; M19.90 Unspecified osteoarthritis, unspecified site; I10 Essential (primary) hypertension; E78.00 Pure hypercholesterolemia, unspecified; Z79.82 Long term (current) use of aspirin; E78.5 Hyperlipidemia, unspecified; N40.0 Benign prostatic hyperplasia without lower urinary tract symptoms; F41.9 Anxiety disorder, unspecified; M10.9 Gout, unspecified; Z79.899 Other long term (current) drug therapy; Z79.890 Hormone replacement therapy; Z79.1 Long term (current) use of non-steroidal anti-inflammatories (NSAID)
CPT/HCPCS: 88305; 45384; J2250; J3010; J2704; J2001

== ENCOUNTER → 2022-03-02 | Outpatient (CLI) | payer MEDICAID ==
[2022-03-02 15:01] LABS: HCT 43.5 % (39.6-50.0); HGB 14.8 g/dL (13.0-17.0); MCH 31.6 pg (27.0-32.0); MCV 92.8 fL (80.0-97.0); Mean Platelet Volume 11.7 fL (9.5-12.2); NRBC Per 100 WBC 0 /100 WBCS (0.0-0.0); Platelet Count 260 X 10*3/uL (140-440); RBC 4.69 X 10*6/uL (4.40-5.60); RDW 13.5 % (11.5-14.5); WBC 7.45 X 10*3/uL (4.50-10.00)
[2022-03-02 17:37] LABS: ALT 41 U/L (10-49); AST 66 U/L (14-35); Albumin 4.5 g/dL (3.8-4.9); Albumin/Globulin Ratio 2.05 (1.60-3.17); Alkaline Phosphatase 61 U/L (41-126); BUN/Creat Ratio 23.56 Ratio (12.00-20.00); Blood Urea Nitrogen 21.2 mg/dL (9.0-27.0); Calcium 9.6 mg/dL (8.7-10.3); Carbon Dioxide 24.8 mmol/L (20.0-27.5); Chloride 105 mmol/L (96-109); Chol/HDL Ratio 2.48 Ratio; Globulin 2.2 g/dL (1.6-3.3); Glucose 162 mg/dL (70-110); LDL Cholesterol,Calculated 46.4 mg/dL (0.0-131.0); Non-African American GFR(CKD) 93.2 (60.0-200.0); Potassium 4.6 mmol/L (3.5-5.5); Sodium 140 mmol/L (135-145); Total Protein 6.7 g/dL (6.2-8.2); VLDL Calculation 15.12 mg/dL (5.00-40.00)
== END | disposition home or self-care (01) ==
LOC: LABWHC1 06:58
PROVIDERS: ATTEND Family Medicine
DX: E11.9 Type 2 diabetes mellitus without complications (principal); E78.5 Hyperlipidemia, unspecified
CPT/HCPCS: 36415; 80053; 80061; 83036; 84443; 85027

== ENCOUNTER → 2022-06-03 | Outpatient (CLI) | payer MEDICAID ==
[2022-06-03 12:03] LABS: HGB 16.4 g/dL (13.0-17.0); MCH 30.7 pg (27.0-32.0); MCHC 33.5 g/dL (32.0-37.0); MCV 91.6 fL (80.0-97.0); Mean Platelet Volume 11.6 fL (9.5-12.2); NRBC Per 100 WBC 0 /100 WBCS (0.0-0.0); Platelet Count 228 X 10*3/uL (140-440); RBC 5.35 X 10*6/uL (4.40-5.60); RDW 12.6 % (11.5-14.5); WBC 7.25 X 10*3/uL (4.50-10.00)
[2022-06-03 12:13] LABS: ALT 32 U/L (10-49); AST 72 U/L (14-35); African American GFR (CKD) 106.9 (60.0-200.0); Albumin 4.4 g/dL (3.8-4.9); Alkaline Phosphatase 61 U/L (41-126); BUN/Creat Ratio 17.96 Ratio (12.00-20.00); Blood Urea Nitrogen 16.2 mg/dL (9.0-27.0); Calcium 9.4 mg/dL (8.7-10.3); Carbon Dioxide 27.4 mmol/L (20.0-27.5); Chloride 102 mmol/L (96-109); Globulin 2.8 g/dL (1.6-3.3); Glucose 157 mg/dL (70-110); LDL Cholesterol,Calculated 44.8 mg/dL (0.0-131.0); Non-African American GFR(CKD) 92.3 (60.0-200.0); Potassium 4.5 mmol/L (3.5-5.5); Sodium 139 mmol/L (135-145); Total Protein 7.1 g/dL (6.2-8.2); VLDL Calculation 13.98 mg/dL (5.00-40.00)
== END | disposition home or self-care (01) ==
LOC: LABWHC1 08:25
PROVIDERS: ATTEND Physician Assistant
DX: E11.65 Type 2 diabetes mellitus with hyperglycemia (principal)
CPT/HCPCS: 36415; 80053; 80061; 83036; 84439; 84443; 85027

== ENCOUNTER → 2023-01-12 | Outpatient (CLI) | payer MEDICAID ==
[2023-01-12 11:06] LABS: HGB 14.9 d/dL (13.0-17.0); MCH 30.6 pg (27.0-32.0); MCHC 33.9 d/dL (32.0-37.0); MCV 90.3 FL (80.0-97.0); Mean Platelet Volume 11.4 FL (9.5-12.2); NRBC Per 100 WBC 0 X 10*3/uL (0.00-0.01); Platelet Count 228 X 10*3/uL (140-440); RBC 4.87 X 10*6/uL (4.40-5.60); RDW 12.6 % (11.5-14.5); WBC 8.01 X 10*3/uL (4.50-10.00)
[2023-01-12 11:35] LABS: ALT 27 U/L (10-49); AST 62 U/L (14-35); Albumin 4.4 d/dL (3.8-4.9); Alkaline Phosphatase 62 U/L (41-126); Blood Urea Nitrogen 17.6 mg/dL (9.0-27.0); Calcium 9.2 mg/dL (8.7-10.3); Carbon Dioxide 31.4 mmol/L (21.6-31.8); Chloride 102 mmol/L (96-109); Chol/HDL Ratio 2.54 Ratio; Globulin 2.2 d/dL (1.6-3.3); Glucose 169 mg/dL (70-110); LDL Cholesterol,Calculated 52.8 mg/dL (0.0-131.0); Potassium 4.3 mmol/L (3.5-5.5); Sodium 138 mmol/L (135-145); Total Bilirubin 1.2 mg/dL (0.3-1.2); Total Protein 6.6 d/dL (6.2-8.2); VLDL Calculation 19.94 mg/dL (5.00-40.00)
== END | disposition home or self-care (01) ==
LOC: LABWHC1 06:55
PROVIDERS: ATTEND Family Medicine
DX: I10 Essential (primary) hypertension (principal); E11.65 Type 2 diabetes mellitus with hyperglycemia; E78.5 Hyperlipidemia, unspecified
CPT/HCPCS: 36415; 80053; 80061; 83036; 84443; 85027

== ENCOUNTER → 2023-04-27 | Outpatient (CLI) | payer MEDICAID ==
[2023-04-27 10:59] LABS: HCT 46.3 % (39.6-50.0); HGB 15.4 g/dL (13.0-17.0); MCH 30.7 pg (27.0-32.0); MCHC 33.3 g/dL (32.0-37.0); MCV 92.4 FL (80.0-97.0); Mean Platelet Volume 12.1 FL (9.5-12.2); NRBC Per 100 WBC 0 X 10*3/uL (0.00-0.01); Platelet Count 253 X 10*3/uL (140-440); RBC 5.01 X 10*6/uL (4.40-5.60); RDW 13.3 % (11.5-14.5); WBC 8.77 X 10*3/uL (4.50-10.00)
[2023-04-27 12:38] LABS: ALT 45 U/L (10-49); AST 70 U/L (14-35); Albumin 4.5 g/dL (3.8-4.9); Albumin/Globulin Ratio 1.73 Ratio (1.60-3.17); Alkaline Phosphatase 70 U/L (41-126); Blood Urea Nitrogen 15.3 mg/dL (9.0-27.0); Calcium 9.4 mg/dL (8.7-10.3); Carbon Dioxide 23.5 mmol/L (21.6-31.8); Chloride 105 mmol/L (96-109); Globulin 2.6 g/dL (1.6-3.3); Glucose 185 mg/dL (70-110); LDL Cholesterol,Calculated 58.5 mg/dL (0.0-131.0); Potassium 4.3 mmol/L (3.5-5.5); Sodium 142 mmol/L (135-145); Total Protein 7.1 g/dL (6.2-8.2)
== END | disposition home or self-care (01) ==
LOC: LABWHC1 07:04
PROVIDERS: ATTEND Family Medicine
DX: I10 Essential (primary) hypertension (principal); E11.59 Type 2 diabetes mellitus with other circulatory complications; E78.5 Hyperlipidemia, unspecified
CPT/HCPCS: 36415; 80053; 80061; 83036; 84443; 85027

== ENCOUNTER → 2023-08-02 | Outpatient (CLI) | payer BC ==
[2023-08-02 14:12] LABS: HCT 49.9 % (39.6-50.0); HGB 16.6 g/dL (13.0-17.0); MCH 30.4 pg (27.0-32.0); MCHC 33.3 g/dL (32.0-37.0); MCV 91.4 FL (80.0-97.0); Mean Platelet Volume 11.4 FL (9.5-12.2); NRBC Per 100 WBC 0 X 10*3/uL (0.00-0.01); Platelet Count 233 X 10*3/uL (140-440); RBC 5.46 X 10*6/uL (4.40-5.60); RDW 12.8 % (11.5-14.5); WBC 7.83 X 10*3/uL (4.50-10.00)
[2023-08-02 15:05] LABS: ALT 29 U/L (10-49); AST 75 U/L (14-35); Albumin 4.5 g/dL (3.8-4.9); Alkaline Phosphatase 74 U/L (41-126); BUN/Creat Ratio 15.67 Ratio (12.00-20.00); Blood Urea Nitrogen 14.1 mg/dL (9.0-27.0); Calcium 9.3 mg/dL (8.7-10.3); Carbon Dioxide 24.1 mmol/L (21.6-31.8); Chloride 104 mmol/L (96-109); Chol/HDL Ratio 2.12 Ratio; Globulin 2.5 g/dL (1.6-3.3); Glucose 141 mg/dL (70-110); LDL Cholesterol,Calculated 42.2 mg/dL (0.0-131.0); Potassium 4.4 mmol/L (3.5-5.5); Sodium 139 mmol/L (135-145)
== END | disposition home or self-care (01) ==
LOC: LABWHC1 09:15
PROVIDERS: ATTEND Physician Assistant
DX: I10 Essential (primary) hypertension (principal); E11.59 Type 2 diabetes mellitus with other circulatory complications; E78.5 Hyperlipidemia, unspecified
CPT/HCPCS: 36415; 80053; 80061; 83036; 84443; 85027

== ENCOUNTER 2023-10-18 05:57 | Emergency (ER) | payer BC ==
[2023-10-18 06:03] VITALS: TEMP 98
--- NOTE | 2023-10-18 06:39 | ED ---
Male Urogenital HPI - General Chief complaint: Urogenital Stated complaint: Unable to Urinate, ABD Pain Time Seen by Provider: 10/18/23 06:27 Source: patient, RN notes reviewed Mode of arrival: ambulatory Limitations: no limitations - History of Present Illness Initial comments: This is a 63-year-old male who presents to the emergency department for urinary retention. States that he felt like he was developing symptoms of a UTI yesterday and saw urology. His urinalysis was negative and he also had a prostate exam that he was told demonstrated an enlarged prostate, but was otherwise normal. He was however started on Bactrim, which he has had 2 doses of. States that he did fine going home, but states that he has not been able to urinate for most of the night aside from small dribbles. This is causing suprapubic discomfort. - Related Data Home Medications Medication Instructions Recorded Confirmed allopurinoL [Zyloprim] 100 mg PO BID 12/07/15 12/23/21 Aspirin EC [Ecotrin Low Dose] 162 mg PO DAILY 02/28/18 12/23/21 Atorvastatin [Lipitor] 80 mg PO HS 02/28/18 12/23/21 Terazosin [Hytrin] 5 mg PO HS 06/18/19 12/23/21 Testosterone [Androgel 1% Gel 5 gram TOPICAL Q3D 06/18/19 12/23/21 Packet] Benazepril HCl 40 mg PO HS 12/21/21 12/23/21 Finasteride [Proscar] 5 mg PO DAILY 12/21/21 12/23/21 Naproxen Sodium [Aleve] 220 mg PO BID 12/21/21 12/21/21 amLODIPine [Norvasc] 10 mg PO DAILY 12/21/21 12/21/21 tadalafiL [Cialis] 20 mg PO DAILY 12/21/21 12/23/21 Previous Rx's Medication Instructions Recorded carvediloL [Coreg*] 12.5 mg PO BID-W/MEALS #60 tab 01/03/16 Allergies Allergy/AdvReac Type Severity Reaction Status Date / Time No Known Allergies Allergy Verified 10/18/23 06:03 Review of Systems ROS Statement: Those systems with pertinent positive or pertinent negative responses have been documented in the HPI. ROS Other: All systems not noted in ROS Statement are negative. Past Medical History Past Medical History: Coronary Artery Disease (CAD), Hyperlipidemia, Hypertension, Osteoarthritis (OA), Prostate Disorder Additional Past Medical History / Comment(s): Pulmonary stenosis with pulmonic valve replacement, VSD-closed spontaneously, BPH, arthritis cervical and bilateral knees, cervical calcium deposits, numbness R arm at times r/t cervical problems, gout. History of Any Multi-Drug Resistant Organisms: None Reported Past Surgical History: Cardiac Valve Replacement, Heart Catheterization Additional Past Surgical History / Comment(s): Other surgical hx: Median sternotomy and resection of RV sub-infundibular stenosis, cardiac caths x4, HEART SURGERY FOR TETRALOGY OF FALLOT (AGE 11), L hand fx with surgical repair, vasectomy R TKA Past Anesthesia/Blood Transfusion Reactions: No Reported Reaction Additional Past Anesthesia/Blood Transfusion Reaction / Comment(s): Pt received blood with surgery in past without reaction. Past Psychological History: Anxiety Smoking Status: Never smoker Past Alcohol Use History: Rare Past Drug Use History: None Reported - Past Family History Mother Family Medical History: Cancer, Coronary Artery Disease (CAD), Myocardial Infarction (MT), Renal Disease Additional Family Medical History / Comment(s): Mother had multiple myeloma. She of renal failure. She had a MT and CABG in her early 60's. She had alot of CAD in her family. Father Family Medical History: Coronary Artery Disease (CAD), Myocardial Infarction (MT) Additional Family Medical History / Comment(s): Father had his first MT in his mid 60's and of a MT at the age of 82yrs. He had alot of CAD in his family. General Exam Limitations: no limitations General appearance: alert, in no apparent distress Head exam: Present: atraumatic, normocephalic, normal inspection Respiratory exam: Present: normal lung sounds bilaterally. Absent: respiratory distress, wheezes, rales, rhonchi, stridor Cardiovascular Exam: Present: regular rate, normal rhythm, normal heart sounds. Absent: systolic murmur, diastolic murmur, rubs, gallop, clicks GI/Abdominal exam: Present: soft, tenderness (Suprapubic), normal bowel sounds. Absent: distended Neurological exam: Present: alert, oriented X3, CN II-XII intact Psychiatric exam: Present: normal affect, normal mood Skin exam: Present: warm, dry, intact, normal color. Absent: rash Course Vital Signs 10/18/23 10/18/23 06:00 08:25 Temperature 98 F 98 F Pulse Rate 101 H 80 Respiratory 20 18 Rate Blood Pressure 165/94 145/88 O2 Sat by Pulse 100 100 Oximetry Medical Decision Making - Medical Decision Making This is a 63-year-old male who presents to the emergency department for urinary retention. Was pt. sent in by a medical professional or institution? @ -No Did you speak to anyone other than the patient for history? @ -No Did you review nursing and triage notes? @ -Yes, and I agree, it is accurate with regards to the patient's symptoms. Were old charts reviewed? @ -No Differential Diagnosis? @ -Differential Urinary Retention: Blood clot, BPH, UTI, neurological issue, this is not meant to be an all- inclusive list. EKG interpreted by me (3pts min.)? @ -Not obtained X-rays interpreted by me (1pt min.)? @ -Not obtained CT interpreted by me (1pt min.)? @ -Not obtained U/S interpreted by me (1pt. min.)? @ -Not obtained What testing was considered but not performed? (CT, X-rays, U/S, labs)? Why? @ -None What meds were considered but not given? Why? @ -None Did you discuss the management of the patient with other professionals? @ -No Did you reconcile home meds? @ -No Was smoking cessation discussed for >3mins.? @ -No Was critical care preformed (if so, how long)? @ -No Were there social determinants of health that impacted care today? How? (Homelessness, low income, unemployed, alcoholism, drug addiction, transportation, low edu. Level, literacy, decrease access to med. care, longterm, rehab)? @ -No Was there de-escalation of care discussed even if they declined? (Discuss DNR or withdrawal of care, Hospice)? @ -No What co-morbidities impacted this encounter? (DM, HTN, Smoking, COPD, CAD, Cancer, CVA, Hep., AIDS, mental health diagnosis, sleep apnea, morbid obesity)? @ -BPH Was patient admitted / discharged? @ -Discharged. Bladder scan performed demonstrating 784 mL of urine. Vernon catheter was subsequently inserted and approximately this amount of urine was drained. Patient had significant relief in symptoms afterwards. Urinalysis negative for signs of infection. Patient discharged home with Vernon catheter in place and advised to follow back up with urology. Case discussed with ED attending Dr. Covington. Return precautions reviewed in depth, the patient is instructed to return to the emergency department with any new, worsening, or concerning symptoms. Patient verbalized understanding. Undiagnosed new problem with uncertain prognosis? @ -None Drug Therapy requiring intensive monitoring for toxicity (Heparin, Nitro, Insulin, Cardizem)? @ -None Were any procedures done? @ -None Diagnosis/symptom? @ -Urinary retention Acute, or Chronic, or Acute on Chronic? @ -Acute Uncomplicated (without systemic symptoms) or Complicated (systemic symptoms)? @ -Uncomplicated Side effects of treatment? @ -None Exacerbation, Progression, or Severe Exacerbation] @ -Not applicable Poses a threat to life or bodily function? @ -No - Lab Data Lab Results 10/18/23 Range/Units 07:13 Urine Color Colorless Urine Appearance Clear (Clear) Urine pH 6.0 (5.0-8.0) Ur Specific [place] 1.015 (1.001-1.035) Urine Protein Negative (Negative) Urine Glucose (UA) Negative (Negative) Urine Ketones Negative (Negative) Urine Blood Small H (Negative) Urine Nitrite Negative (Negative) Urine Bilirubin Negative (Negative) Urine Urobilinogen <2.0 (<2.0) mg/dL Ur Leukocyte Esterase Negative (Negative) Urine RBC 5 (0-5) /hpf Urine WBC 1 (0-5) /hpf Urine Mucus Rare H (None) /hpf Disposition Clinical Impression: Urinary retention Disposition: HOME SELF-CARE Instructions (If sedation given, give patient instructions): Urinary Retention in Men (ED), Vernon Catheter Placement and Care (ED), How to Change a Catheter Drainage Bag (DC) Additional Instructions: Return to the emergency department with any new, worsening, or concerning symptoms. Contact urology for another follow-up appointment. Let them know that you were seen in the emergency department for urinary retention and had a Vernon catheter placed. Is patient prescribed a controlled substance at d/c from ED?: No Referrals: Yury Mohr MD [Primary Care Provider] - 1-2 days Shankar Hernandez MD [STAFF PHYSICIAN] - 1-2 days Time of Disposition: 07:46
[2023-10-18 07:34] LABS: Appearance,Urine Clear (Clear); Bilirubin,Urine Negative (Negative); Blood,Urine Small (Negative); Color,Urine Colorless; Glucose,Urine (UA) Negative (Negative); Ketones,Urine Negative (Negative); Leukocyte Esterase,Urine Negative (Negative); Mucus,Urine Rare /hpf; Nitrite,Urine Negative (Negative); Protein,Urine Negative (Negative); RBC,Urine 5 /hpf (0-5); Specific Gravity,Urine 1.015 (1.001-1.035); Urobilinogen,Urine <2.0 mg/dL (<2.0); WBC,Urine 1 /hpf (0-5)
[2023-10-18 08:27] VITALS: BP 145/88; PULSE 80; RESP 18
== END 2023-10-18 08:25 | disposition home or self-care (01) ==
LOC: EC 05:57
DX: R33.9 Retention of urine, unspecified
CPT/HCPCS: 51702; 51798; 81001; 99284

== ENCOUNTER 2023-11-03 07:34 | Emergency (ER) | payer BC | END 2023-11-03 09:00 | disposition home or self-care (01) | LOC: EC 07:34 | DX: R33.9 Retention of urine, unspecified (principal) | CPT/HCPCS: 51702; 51798; 99283 ==

== ENCOUNTER → 2023-12-11 | Outpatient (CLI) | payer BC ==
[2023-12-11 10:58] LABS: HCT 46.9 % (39.6-50.0); HGB 15.9 g/dL (13.0-17.0); MCH 31.4 pg (27.0-32.0); MCHC 33.9 g/dL (32.0-37.0); MCV 92.5 FL (80.0-97.0); Mean Platelet Volume 11.6 FL (9.5-12.2); NRBC Per 100 WBC 0 X 10*3/uL (0.00-0.01); Platelet Count 229 X 10*3/uL (140-440); RBC 5.07 X 10*6/uL (4.40-5.60); WBC 8.78 X 10*3/uL (4.50-10.00)
[2023-12-11 11:11] LABS: ALT 31 U/L (10-49); AST 59 U/L (14-35); Albumin 4.6 g/dL (3.8-4.9); Albumin/Globulin Ratio 1.77 Ratio (1.60-3.17); Alkaline Phosphatase 73 U/L (41-126); BUN/Creat Ratio 18.89 Ratio (12.00-20.00); Calcium 9.6 mg/dL (8.7-10.3); Carbon Dioxide 24.7 mmol/L (21.6-31.8); Chloride 103 mmol/L (96-109); Chol/HDL Ratio 2.36 Ratio; Globulin 2.6 g/dL (1.6-3.3); Glucose 176 mg/dL (70-110); Potassium 4.4 mmol/L (3.5-5.5); Prostate Specific Antigen 1.97 ng/mL (0.000-4.500); Sodium 140 mmol/L (135-145); Total Bilirubin 0.7 mg/dL (0.3-1.2); Total Protein 7.2 g/dL (6.2-8.2)
[2023-12-11 15:35] LABS: Appearance,Urine Clear (Clear); Bilirubin,Urine Negative (Negative); Blood,Urine Negative (Negative); Color,Urine Yellow (Yellow); Ketones,Urine Negative (Negative); Nitrite,Urine Positive (Negative); PH, Urine 5.5; Specific Gravity,Urine 1.019 (1.001-1.030); Urobilinogen,Urine 0.2 E.U./DL
[2023-12-11 15:45] LABS: Bacteria,Urine None Seen (None Seen)
== END | disposition home or self-care (01) ==
LOC: LABPAT 07:04
PROVIDERS: ATTEND Urology
DX: Z01.812 Encounter for preprocedural laboratory examination (principal); Z12.5 Encounter for screening for malignant neoplasm of prostate; I10 Essential (primary) hypertension; E11.65 Type 2 diabetes mellitus with hyperglycemia; M10.9 Gout, unspecified; E78.5 Hyperlipidemia, unspecified; N40.1 Benign prostatic hyperplasia with lower urinary tract symptoms
CPT/HCPCS: 36415; 80053; 80061; 81001; 83036; 84153; 84443; 84550; 85027; 86850; 86870; 86880; 86900; 86901; 86902; 87086

== ENCOUNTER 2023-12-20 09:58 | Day surgery (SDC) | payer BC ==
--- NOTE | 2023-12-20 07:51 | P.HPIHPCON ---
History of Present Illness H&P Date: 12/18/23 Chief Complaint: BPH This is a 63-year-old male with history of enlarged prostate, was having recurrent urinary retention, prostate size was approximately 80 g. Discussed given the prostate size option of a robotic simple prostatectomy versus HoLEP, he agreed to proceed with a robotic simple prostatectomy. Aware of the risk which includes but not limited to bleeding, infection, urinary incontinence, erectile dysfunction, retrograde ejaculation. Discussed also risk of injury to nearby organs. Risk of persistent symptoms was also discussed. He understood all the risk and agreed to proceed Consent for Procedure: I have explained the operation/procedure to the patient, including the risks, benefits, side effects, alternative therapies (including not receiving the proposed treatment or service), the likelihood of the patient achieving his/her goals, and potential recuperation problems for the procedure/sedation/analgesia, as well as any blood products, if indicated. I also explained to the patient the risks, benefits and side effects of the alternatives, as well as the risks related to not receiving the proposed procedure, care, treatment, or services. Past Medical History Past Medical History: Coronary Artery Disease (CAD), Diabetes Mellitus, Hyperlipidemia, Hypertension, Osteoarthritis (OA), Prostate Disorder Additional Past Medical History / Comment(s): , VSD-closed spontaneously, BPH, arthritis cervical and bilateral knees, cervical calcium deposits, numbness R arm at times r/t cervical problems, gout. some labored breathing with hot humid weather from covid 2016, fatty liver History of Any Multi-Drug Resistant Organisms: None Reported Past Surgical History: Coronary Bypass/CABG, Heart Catheterization, Joint Replacement Additional Past Surgical History / Comment(s): Other surgical hx: Median sternotomy and resection of RV sub-infundibular stenosis, cardiac caths x4, HEART SURGERY FOR TETRALOGY OF FALLOT (AGE 11) ( growth around valve removed), L hand fx with surgical repair, vasectomy R TKA, quad bypass 2015 Past Anesthesia/Blood Transfusion Reactions: No Reported Reaction Additional Past Anesthesia/Blood Transfusion Reaction / Comment(s): Pt received blood with surgery in past without reaction. awake during knee surgery. needs pre medication to relax. Smoking Status: Never smoker - Past Family History Mother Family Medical History: Cancer, Coronary Artery Disease (CAD), Myocardial Infarction (ND), Renal Disease Additional Family Medical History / Comment(s): Mother had multiple myeloma. She of renal failure. She had a ND and CABG in her early 60's. She had alot of CAD in her family. Father Family Medical History: Coronary Artery Disease (CAD), Myocardial Infarction (ND) Additional Family Medical History / Comment(s): Father had his first ND in his mid 60's and of a ND at the age of 82yrs. He had alot of CAD in his family. Medications and Allergies Home Medications Medication Instructions Recorded Confirmed Type allopurinoL [Zyloprim] 100 mg PO BID 12/07/15 12/14/23 History carvediloL [Coreg*] 12.5 mg PO BID-W/MEALS #60 tab 01/03/16 12/14/23 Rx Aspirin EC [Ecotrin Low Dose] 162 mg PO DAILY 02/28/18 12/14/23 History Atorvastatin [Lipitor] 80 mg PO HS 02/28/18 12/14/23 History Terazosin [Hytrin] 5 mg PO HS 06/18/19 12/14/23 History Testosterone [Androgel 1% Gel 5 gram TOPICAL Q3D 06/18/19 12/14/23 History Packet] Benazepril HCl 40 mg PO HS 12/21/21 12/14/23 History Finasteride [Proscar] 5 mg PO DAILY 12/21/21 12/14/23 History amLODIPine [Norvasc] 10 mg PO DAILY 12/21/21 12/14/23 History tadalafiL [Cialis] 20 mg PO DAILY 12/21/21 12/14/23 History Berberine Chloride [Berberine] 1,000 mg PO BID 12/14/23 12/14/23 History Tirzepatide [Mounjaro] 2.5 mg SQ WEEKLY 12/14/23 12/14/23 History Allergies Allergy/AdvReac Type Severity Reaction Status Date / Time No Known Allergies Allergy Verified 12/14/23 09:50
[~2023-12-20 09:58] MED LIST changes: +HYDROmorphone 0.5 MG/0.5 ML SYRINGE IVP PRN; -LACTATED RINGERS 1,000 ML IV SCH; +MIDAZOLAM 2 MG/2 ML VIAL IV PRN; +fentaNYL (PF) 50 MCG/ML 2 ML AMP IVP PRN
[2023-12-20] MEDS: IV FLUID CONTINUATION 1,000 ML IV ONE ×4 (10:30→10:31)
[2023-12-20] MEDS: LACTATED RINGERS 1,000 ML IV SCH (10:37)
[2023-12-20 11:06] LABS: Glucose,Whole Blood 148 mg/dL (70-110)
[2023-12-20] MEDS: ONDANSETRON 4 MG/2 ML VIAL IVP ONE (11:17)
[2023-12-20] MEDS: DEXAMETHASONE SOD PHOSPHATE 4 MG/ML 1 ML VIAL IV ONE (11:27)
[2023-12-20] MEDS: MIDAZOLAM 2 MG/2 ML VIAL IVP ONE (11:59)
[2023-12-20] MEDS ORDERED: HYDROmorphone 1 MG/ML 1 ML SYRINGE IVP PRN (12:09)
[2023-12-20] MEDS ORDERED: ONDANSETRON 4 MG/2 ML VIAL IVP PRN (12:09)
[2023-12-20] MEDS ORDERED: HYDROcodone/APAP 5-325MG 1 EACH TAB PO PRN (12:10)
[2023-12-20] MEDS ORDERED: LIDOCAINE 1% INJ 10MG/ML (20 ML MDV) ONE (12:15)
[2023-12-20] MEDS ORDERED: NEOSTIGMINE 1 MG/ML 10 ML VIAL ONE (12:15)
[2023-12-20] MEDS ORDERED: HYDROmorphone (PF) 1 MG/ML ONE (12:15)
[2023-12-20] MEDS ORDERED: PHENYLEPHRINE 10 MG/ML VIAL ONE (12:15)
[2023-12-20] MEDS ORDERED: GLYCOPYRROLATE 0.2 MG/ML 2 ML VIAL ONE (12:15)
[2023-12-20] MEDS ORDERED: PROPOFOL 10 MG/ML 20 ML VIAL IV ONE (12:15)
[2023-12-20] MEDS ORDERED: ROCURONIUM 10 MG/ML (5 ML VIAL) IV ONE (12:15)
[2023-12-20] MEDS ORDERED: MIDAZOLAM 2 MG/2 ML VIAL ONE (12:15)
[2023-12-20] MEDS ORDERED: DEXAMETHASONE SOD PHOSPHATE 4 MG/ML 1 ML VIAL ONE (12:15)
[2023-12-20] MEDS ORDERED: ROPIVACAINE 5 MG/ML 30 ML VIAL ONE (12:15)
[2023-12-20] MEDS ORDERED: fentaNYL (PF) 50 MCG/ML 2 ML AMP ONE (12:15)
--- NOTE | 2023-12-20 12:17 | P.ANPRN ---
Procedure Note - Anesthesia - Nerve Block Performed Bilateral Erector Spinae Single Time Out Performed: Yes Date of Procedure: 12/20/23 Procedure Start Time: 11:58 Procedure Stop Time: 12:10 Location of Patient: PreOp Indication: Acute Post-Operative Pain, Requested by Surgeon Sedation Type: Sedate with meaningful contact maintained Preparation: Sterile Prep, Sterile Dressing Position: Prone Catheter: None Needle Types: Facet Needle Gauge: 20 Ultrasound used to visualize needle placement: Yes Ultrasound used to observe medication spread: Yes Injectate: Other (see comment) (Ropivacaine 0.25% 30 ml + decadron 2 mg per side) Blood Aspirated: No Pain Paresthesia on Injection Noted: No Resistance on Injection: Normal Image Stored and Saved: Yes Events: Uneventful and Well Tolerated
[2023-12-20] MEDS: BUPIVACAINE (PF) 0.25% 30 ML VIAL SQ ONE ×2 (12:23→15:31)
[2023-12-20] MEDS: LACTATED RINGERS 1,000 ML IV ONE (14:07)
--- NOTE | 2023-12-20 15:49 | P.OP ---
Date of Procedure: 12/20/23 Preoperative Diagnosis: BPH Postoperative Diagnosis: Same Procedure(s) Performed: Robotic simple prostatectomy, urethral dilation, Anesthesia: KENIAA Surgeon: Shankar Hernandez Estimated Blood Loss (ml): 100 Pathology: other (Prostate adenoma) Condition: stable Disposition: PACU Indications for Procedure: This is a 63-year-old male with history of enlarged prostate, was having recurrent urinary retention, prostate size was approximately 80 g. Discussed given the prostate size option of a robotic simple prostatectomy versus HoLEP, he agreed to proceed with a robotic simple prostatectomy. Aware of the risk which includes but not limited to bleeding, infection, urinary incontinence, erectile dysfunction, retrograde ejaculation. Discussed also risk of injury to nearby organs. Risk of persistent symptoms was also discussed. He understood all the risk and agreed to proceed Description of Procedure: After preoperative antibiotics were started, the patient was taken to the operating room. Anesthesia was induced and the patient was placed in a supine position with adequate padding of the pressure points, shoulders, back, legs and arms. He was then prepped and draped in the standard fashion. A critical pause was performed using two patient identifiers. A 16F james catheter was placed to gravity drainage. A pneumoperitoneum was obtained using a Veress needle, after pneumoperitoneum was obtained a 8 mm camera port was placed. Under direct vision a 8mm robotic ports was placed lateral to each rectus slightly below the camera port. The left iliac fossa 8mm port was placed. The right hospital aides and assistants teacher right iliac fossa 12mm port and right paramedian 5mm portwere placed. Of note patient had an umbilical hernia, and the appendix was herniating through the umbilical hernia,, at this point using a grasper the fat around the appendix was grasped and at this point a plane between the umbilical hernia sac and the appendix was identified, and this was lysed sharply. There was no injury to the appendix. At this time the robot was docked The robot was then docked to the 8mm robotic ports and then each robotic arm and tower was checked in relation to the patient's legs and hands to avoid inadvertent compression. The peritoneal cavity was inspected. Adhesions were taken down along the left lower quadrant. An inverted U-shaped incision began laterally to the left medial umbilical ligament and extended high across the midline to the right umbilical ligament. The limbs of the "U" extended to the level of the vasa on both sides. We next developed the preperitoneal space and the space of Retzius. Cautery was used to dissected the bladder away from the prostate, the incision was made in close proximity to the prostate, and incision was extended laterally and at this point the plane between the adenoma and the surgical capsule is identified. Patient had a significantly enlarged median lobe with intravesical extension. Both ureteral orifices were identified and neither was injured during the dissection . The adenoma was dissected off of the capsule by combination of blunt dissection and minimum cautery. dissection was initially started along the anterior surface and posterior surface of adenoma, and this was carried laterally. The dissection was carried to the apex, at this point the urethral-prostatic junction was visualized and the prostate was transected at the junction. Prostate adenoma was placed in an endocatch bag . A 9and 9 inch 3-0 V-Lock suture was used to anastomose the urethra and bladder, starting at the 6:00 posterior position. Mucosa was secured in every stitch, to ensure a mucosa to mucosa anastomosis. The stitch was regularly cinched and the anastomosis tightened. . The 20 Fr James catheter was advanced, the bladder filled, and the anastomosis was tested. Anastomsis was watertight at 150 mL. balloon was inflated to 10 mL The robot was undocked. specimen was extracted from the supraumbilical incision. The hernia sac was excised, and the fascial edge around the hernia sac was further mobilized. The periumbilical fascia was closed with 1-0-PDS suture in running fashion. All ports were closed with a subcuticular 4-0 monocryl and Dermabond. Sponge, instrument, and needle counts w ere correct at the end of the case x2. The patient tolerated the surgery well and without complication. He awoke without difficulty and was taken to the recovery room in stable condition
[2023-12-20 17:19] LABS: Glucose,Whole Blood 229 mg/dL (70-110)
[2023-12-20] MEDS: carvediloL 12.5 MG TAB PO SCH (18:04)
[2023-12-20] MEDS: SODIUM CHLORIDE 0.9% 1,000 ML IV SCH (18:04)
[2023-12-20] MEDS: KETOROLAC 15 MG/ML 1 ML VIAL IVP SCH (18:04)
[2023-12-20] MEDS: HEPARIN SODIUM,PORCINE 5,000 UNIT/ML 1 ML VIAL SQ SCH (18:05)
[2023-12-20 20:10] LABS: Glucose,Whole Blood 212 mg/dL (70-110)
[2023-12-20] MEDS: ATORVASTATIN 80 MG TAB PO SCH (20:51)
[2023-12-20] MEDS: lisinopriL 20 MG TAB PO SCH (20:51)
[2023-12-20] MEDS: allopurinoL 100 MG TAB PO SCH (20:51)
[2023-12-20] MEDS: BERBERINE CHLORIDE PO SCH (20:52)
[2023-12-21 06:26] LABS: Glucose,Whole Blood 176 mg/dL (70-110)
--- NOTE | 2023-12-21 07:50 | P.DS ---
Providers Attending physician: Shankar Hernandez MD Primary care physician: [facility] Course: The patient was admitted for a robotic assisted suprapubic prostatectomy for a large prostate. He underwent this without difficulty. His urine has cleared. He is having minimal pain. He will be d/cd evens dashth the oley on a regular diet. He will f/u with Dr hernandez in about a week. His condition is good and the pathology report is pending Plan - Discharge Summary Discharge Rx Participant: No New Discharge Prescriptions: New Ciprofloxacin HCl [Cipro] 500 mg PO Q12HR 1 Days #6 tab Ketorolac [Toradol] 10 mg PO Q6HR PRN #15 tab PRN Reason: Pain No Action allopurinoL [Zyloprim] 100 mg PO BID carvediloL [Coreg*] 12.5 mg PO BID-W/MEALS #60 tab Aspirin EC [Ecotrin Low Dose] 162 mg PO DAILY Atorvastatin [Lipitor] 80 mg PO HS Terazosin [Hytrin] 5 mg PO HS Testosterone [Androgel 1% Gel Packet] 5 gram TOPICAL Q3D Finasteride [Proscar] 5 mg PO DAILY tadalafiL [Cialis] 20 mg PO DAILY amLODIPine [Norvasc] 10 mg PO DAILY Benazepril HCl 40 mg PO HS Tirzepatide [Mounjaro] 2.5 mg SQ WEEKLY Berberine Chloride [Berberine] 1,000 mg PO BID Discharge Medication List allopurinoL [Zyloprim] 100 mg PO BID 12/07/15 [History] carvediloL [Coreg*] 12.5 mg PO BID-W/MEALS #60 tab 01/03/16 [Rx] Aspirin EC [Ecotrin Low Dose] 162 mg PO DAILY 02/28/18 [History] Atorvastatin [Lipitor] 80 mg PO HS 02/28/18 [History] Terazosin [Hytrin] 5 mg PO HS 06/18/19 [History] Testosterone [Androgel 1% Gel Packet] 5 gram TOPICAL Q3D 06/18/19 [History] Benazepril HCl 40 mg PO HS 12/21/21 [History] Finasteride [Proscar] 5 mg PO DAILY 12/21/21 [History] amLODIPine [Norvasc] 10 mg PO DAILY 12/21/21 [History] tadalafiL [Cialis] 20 mg PO DAILY 12/21/21 [History] Berberine Chloride [Berberine] 1,000 mg PO BID 12/14/23 [History] Tirzepatide [Mounjaro] 2.5 mg SQ WEEKLY 12/14/23 [History] Ciprofloxacin HCl [Cipro] 500 mg PO Q12HR 1 Days #6 tab 12/20/23 [Rx] Ketorolac [Toradol] 10 mg PO Q6HR PRN #15 tab 12/20/23 [Rx] Follow up Appointment(s)/Referral(s): Shankar Hernandez MD [STAFF PHYSICIAN] - 10 Days (home with catheter please instruct) Patient Instructions/Handouts: [place] Catheter Placement and Care (DC), Robot Assisted Laparoscopic Prostatectomy (DC) Activity/Diet/Wound Care/Special Instructions: It is normal to have blood in the urine No heavy lifting or straining You may shower, no baths You can discontinue taking your Proscar and terazosin Start your antibiotics 1 day prior to your follow-up appointment Discharge Disposition: HOME SELF-CARE
[2023-12-21 10:01] VITALS: BP 125/66; PULSE 82; RESP 20; TEMP 98.4
[2023-12-21] MEDS: amLODIPine 10 MG TAB PO SCH (10:13)
[2023-12-21 11:16] LABS: Glucose,Whole Blood 168 mg/dL (70-110)
== END 2023-12-21 15:17 | disposition home or self-care (01) ==
LOC: OR 09:58 → 4SSUR 16:09 → OR 12-21 15:17
PROVIDERS: ATTEND Urology
DX: N40.1 Benign prostatic hyperplasia with lower urinary tract symptoms (principal)
CPT/HCPCS: 64999; 88307

== ENCOUNTER → 2024-03-14 | Outpatient (CLI) | payer BC ==
[2024-03-14 15:43] LABS: HCT 48.1 % (39.6-50.0); HGB 16.1 g/dL (13.0-17.0); MCH 30.2 pg (27.0-32.0); MCHC 33.5 g/dL (32.0-37.0); MCV 90.2 FL (80.0-97.0); Mean Platelet Volume 10.8 FL (9.5-12.2); NRBC Per 100 WBC 0 X 10*3/uL (0.00-0.01); Platelet Count 306 X 10*3/uL (140-440); RBC 5.33 X 10*6/uL (4.40-5.60); RDW 12.7 % (11.5-14.5)
[2024-03-14 15:46] LABS: ALT 34 U/L (10-49); AST 64 U/L (14-35); Albumin 4.5 g/dL (3.8-4.9); Albumin/Globulin Ratio 1.55 Ratio (1.60-3.17); Alkaline Phosphatase 81 U/L (41-126); BUN/Creat Ratio 15.62 Ratio (12.00-20.00); Blood Urea Nitrogen 20.3 mg/dL (9.0-27.0); Calcium 9.9 mg/dL (8.7-10.3); Carbon Dioxide 24.7 mmol/L (21.6-31.8); Chloride 104 mmol/L (96-109); Globulin 2.9 g/dL (1.6-3.3); Glucose 175 mg/dL (70-110); Potassium 4.8 mmol/L (3.5-5.5); Sodium 141 mmol/L (135-145); Total Bilirubin 0.9 mg/dL (0.3-1.2); Total Protein 7.4 g/dL (6.2-8.2)
== END | disposition home or self-care (01) ==
LOC: LABWHC1 08:05
PROVIDERS: ATTEND Physician Assistant
DX: I10 Essential (primary) hypertension (principal); E11.65 Type 2 diabetes mellitus with hyperglycemia
CPT/HCPCS: 36415; 80053; 83036; 85027

== ENCOUNTER → 2024-07-19 | Outpatient (CLI) | payer MEDICAID ==
[2024-07-19 13:33] LABS: HGB 15.8 g/dL (13.0-17.0); MCH 30.7 pg (27.0-32.0); MCHC 33.6 g/dL (32.0-37.0); MCV 91.3 FL (80.0-97.0); Mean Platelet Volume 11.5 FL (9.5-12.2); NRBC Per 100 WBC 0 X 10*3/uL (0.00-0.01); Platelet Count 244 X 10*3/uL (140-440); RBC 5.15 X 10*6/uL (4.40-5.60); RDW 12.5 % (11.5-14.5); WBC 7.32 X 10*3/uL (4.50-10.00)
[2024-07-19 14:01] LABS: ALT 25 U/L (10-49); AST 76 U/L (14-35); Albumin 4.2 g/dL (3.8-4.9); Albumin/Globulin Ratio 1.75 Ratio (1.60-3.17); Alkaline Phosphatase 69 U/L (41-126); Blood Urea Nitrogen 18.8 mg/dL (9.0-27.0); Calcium 9.3 mg/dL (8.7-10.3); Carbon Dioxide 22.8 mmol/L (21.6-31.8); Chloride 105 mmol/L (96-109); Chol/HDL Ratio 2.34 Ratio; Globulin 2.4 g/dL (1.6-3.3); Glucose 141 mg/dL (70-110); Potassium 4.3 mmol/L (3.5-5.5); Sodium 138 mmol/L (135-145); Total Bilirubin 1.2 mg/dL (0.3-1.2); Total Protein 6.6 g/dL (6.2-8.2); VLDL Calculation 16.58 mg/dL (5.00-40.00)
== END | disposition home or self-care (01) ==
LOC: LABWHC1 08:14
PROVIDERS: ATTEND Family Medicine
DX: E11.65 Type 2 diabetes mellitus with hyperglycemia (principal); I10 Essential (primary) hypertension; E78.5 Hyperlipidemia, unspecified
CPT/HCPCS: 36415; 80053; 80061; 83036; 84443; 85027